=== PATIENT | female | born 1955 | race Caucasian/White ===

== ENCOUNTER 2016-07-29 18:02 | Inpatient (IN) ==
[2016-07-29] MEDS ORDERED: PHENERGAN ONE (19:36)
[2016-07-29] MEDS ORDERED: ZOFRAN ONE (19:56)
[2016-07-29] MEDS ORDERED: APRESOLINE ONE (20:53)
[2016-07-29] MEDS ORDERED: REGLAN ONE (20:53)
[2016-07-29] MEDS ORDERED: LABETALOL ONE (21:00)
[2016-07-30] MEDS ORDERED: SODIUM CHLORIDE 0.9% INJ PRN (00:32)
[2016-07-30] MEDS ORDERED: REGLAN IV PRN (00:35)
[2016-07-30] MEDS: ZOFRAN IV PRN ×3 (00:45→16:28)
[2016-07-30] MEDS ORDERED: DULCOLAX PR ONE (00:45)
--- NOTE | 2016-07-30 00:51 | Diag Imaging Result Document ---
PROCEDURE NAME: ABDOMEN FLAT/UPRIGHT - 07/29/2016 FLAT AND UPRIGHT ABDOMEN: FINDINGS: There is a moderately large amount of stool in the colon. The stomach contains some gas without significant distention. There is no evidence of small bowel dilatation. There are surgical clips in the right upper quadrant. IMPRESSION: Constipation. -6
--- NOTE | 2016-07-30 00:51 | Diag Imaging Result Document ---
PROCEDURE NAME: CHEST-2 VIEWS - 07/29/2016 AP AND LATERAL CHEST: FINDINGS: There is a double-lumen catheter in the left internal jugular with its tip in the superior vena cava just above the right atrium. There is ill-defined opacity in the left lower lobe and some atelectasis in the right base as well. The left ventricle appears enlarged. There are no previous studies. IMPRESSION: 1. Atelectasis. 2. Possible pneumonia left lower lobe. 3. Cardiomegaly.
[2016-07-30 01:23] LABS: SODIUM 131 mmol/L (136-145)
[2016-07-30 01:24] LABS: AGAP 19; CHLORIDE 92 mmol/L (98-107); POTASSIUM 6.5 mmol/L (3.5-5.1); TCO2 20 mmol/L (25-35)
[2016-07-30 01:25] LABS: AMYLASE 24 U/L (20-200); BUN 79 mg/dL (8-22); CALCIUM 9.2 mg/dL (8.8-10.2); COSMO 288; LIPASE 20 U/L (13-60)
[2016-07-30] MEDS ORDERED: NS 1,000 ML IV ONE (02:00)
[2016-07-30 02:22] LABS: HEMATOCRIT 38.7 % (37.0-47.0); HEMOGLOBIN 12.7 g/dL (12.0-16.0); RBC 4.21 XMIL (4.2-5.4)
[2016-07-30 02:23] LABS: BASO% 0.4 % (0.0-0.8); EOS# 0.02 X1000 (0.0-0.7); EOS% 0.1 % (0.0-10.0); LYMPH# 0.34 X1000 (1.2-3.4); LYMPH% 6.2 % (20.5-51.1); LYMPHS 7 % (21-51); MANUAL DIFF NEEDED? YES; MCH 30.2 PG (27-31); MCHC 32.8 g/dL (33-37); MCV 91.9 FL (81-99); MONO 3 % (1-9); MONO# 0.09 X1000 (0.11-0.59); MONO% 1.7 % (1.7-9.3); MPV 10.4 FL (7.4-10.4); NEUT% 91.3 % (42.2-75.2); PLT 105 X1000 (130-400)
[2016-07-30] MEDS ORDERED: APRESOLINE IV PRN (03:13)
[2016-07-30] MEDS ORDERED: LABETALOL IV PRN (03:14)
[2016-07-30] MEDS ORDERED: D50W SYRINGE IV PRN (03:26)
[2016-07-30] MEDS: PHENERGAN INJ PRN ×3 (03:54→22:06)
[2016-07-30] MEDS: SODIUM CHLORIDE 0.9% INJ PRN (03:58)
[2016-07-30] MEDS: NORCO-5 PO PRN ×2 (05:01→10:58)
[2016-07-30] MEDS ORDERED: DUONEB (A & A) INH ONE (05:26)
[2016-07-30] MEDS ORDERED: PHENERGAN IM ONE (05:39)
[2016-07-30] MEDS ORDERED: ALBUTEROL 0.5% INH CONC FOR HYPERKALEMIA INH ONE (05:48)
[2016-07-30] MEDS: HUMALOG SUBQ SCH ×4 (05:59→22:01)
[2016-07-30] MEDS: PROTONIX IV SCH (05:59)
[2016-07-30 08:06] LABS: BASO% 0.2 % (0.0-0.8); HEMATOCRIT 36.9 % (37.0-47.0); HEMOGLOBIN 12.2 g/dL (12.0-16.0); LYMPH# 0.38 X1000 (1.2-3.4); LYMPH% 6.7 % (20.5-51.1); MANUAL DIFF NEEDED? YES; MCH 30.7 PG (27-31); MCHC 33.1 g/dL (33-37); MCV 92.9 FL (81-99); MONO# 0.23 X1000 (0.11-0.59); MONO% 4.1 % (1.7-9.3); MPV 9.6 FL (7.4-10.4); PLT 121 X1000 (130-400); RBC 3.97 XMIL (4.2-5.4)
[2016-07-30 08:35] LABS: BANDS 2 % (0-1); LYMPHS 12 % (21-51); MONO 6 % (1-9)
[2016-07-30 08:37] LABS: HEMOGLOBIN A1C 5.2 % (4.8-6.0)
[2016-07-30 08:38] LABS: ALBUMIN 3.4 g/dL (3.5-5.0); CALCIUM 9.1 mg/dL (8.8-10.2); TOTAL BILIRUBIN 0.41 mg/dL (0.20-1.00); TOTAL PROTEIN 5.8 g/dL (6.3-8.3)
[2016-07-30] MEDS ORDERED: NORVASC PO SCH (09:00)
[2016-07-30] MEDS ORDERED: ROCEPHIN 1 GM/NS 1 GM/50 ML IVPB IV SCH (09:45)
[2016-07-30] MEDS: HEPARIN SUBQ SCH ×2 (10:54→22:05)
[2016-07-30] MEDS: TYLENOL PO PRN ×2 (11:00→22:05)
[2016-07-30] MEDS ORDERED: ZITHROMAX 500 MG/NS 500 MG/250 ML IVPB IV SCH (11:00)
[2016-07-30] MEDS: VALIUM IV PRN ×2 (12:09→19:44)
[2016-07-30] MEDS: AMBIEN PO SCH (22:06)
[2016-07-31] MEDS: NORCO-5 PO PRN (04:39)
[2016-07-31] MEDS: SODIUM CHLORIDE 0.9% INJ PRN (05:40)
[2016-07-31] MEDS: PHENERGAN INJ PRN (05:40)
[2016-07-31] MEDS: PROTONIX IV SCH ×2 (05:40→06:17)
[2016-07-31] MEDS: HUMALOG SUBQ SCH ×4 (06:17→20:18)
[2016-07-31] MEDS: TYLENOL PO PRN (06:22)
[2016-07-31] MEDS ORDERED: HEPARIN IV PRN (06:52)
[2016-07-31] MEDS ORDERED: NS 2,000 ML MISC PRN (06:52)
[2016-07-31] MEDS ORDERED: TIGHT: 0.2 ML/HR MISC PRN (06:52)
[2016-07-31 07:10] LABS: MANUAL DIFF NEEDED? NO
[2016-07-31 07:15] LABS: BASO% 0.1 % (0.0-0.8); EOS# 0.01 X1000 (0.0-0.7); EOS% 0.1 % (0.0-10.0); HEMATOCRIT 34.3 % (37.0-47.0); HEMOGLOBIN 11.1 g/dL (12.0-16.0); LYMPH# 1.16 X1000 (1.2-3.4); LYMPH% 15.6 % (20.5-51.1); MCHC 32.4 g/dL (33-37); MCV 92.7 FL (81-99); MONO# 0.59 X1000 (0.11-0.59); MONO% 7.9 % (1.7-9.3); MPV 9.4 FL (7.4-10.4); NEUT% 76.3 % (42.2-75.2); PLT 127 X1000 (130-400)
--- NOTE | 2016-07-31 07:42 | EKG Report ---
Test Performed on : 07/31/2016 06:51:05 AM Test Reason : chest pain Blood Pressure : / mmHG Vent. Rate : 074 BPM Atrial Rate : 074 BPM P-R Int : 132 ms QRS Dur : 084 ms QT Int : 426 ms P-R-T Axes : 056 -16 035 degrees QTc Int : 472 ms Normal sinus rhythm. Moderate voltage criteria for LVH, may be normal variant Junctional ST depression, probably normal Borderline ECG When compared with ECG of 30-JUL-2016 18:28, (Unconfirmed) No significant change was found Confirmed by Dejon BISHOP, Cricket Gamboa ([id number]) on 07/31/2016 9:38:27 AM
[2016-07-31 07:55] LABS: AGAP 20; BUN 104 mg/dL (8-22); CHLORIDE 94 mmol/L (98-107); SODIUM 136 mmol/L (136-145); TCO2 22 mmol/L (25-35)
[2016-07-31 07:56] LABS: ALBUMIN 3.6 g/dL (3.5-5.0); CALCIUM 8.6 mg/dL (8.8-10.2); COSMO 304
[2016-07-31 07:57] LABS: POTASSIUM 6.3 mmol/L (3.5-5.1)
--- NOTE | 2016-07-31 08:25 | Diag Imaging Result Document ---
PROCEDURE NAME: CHEST-PORTABLE - 07/31/2016 SINGLE FRONTAL RADIOGRAPH OF THE CHEST: COMPARISON: 07/29/2016. FINDINGS: Left Vas-Cath is in stable position. Left lower lobe opacity has improved somewhat during the interval. Mild right basilar atelectasis is unchanged. No new consolidations are identified. Cardiac silhouette is stable. IMPRESSION: Slight improvement of opacity at the left lower lung zone.
[2016-07-31] MEDS ORDERED: NS 2,000 ML ONE (08:26)
--- NOTE | 2016-07-31 08:29 | Diag Imaging Result Document ---
PROCEDURE NAME: ABDOMEN FLAT/UPRIGHT - 07/31/2016 FLAT AND UPRIGHT RADIOGRAPH OF THE ABDOMEN: COMPARISON: 07/29/2016. FINDINGS: Constipation seen previously appears to have improved. There is no evidence of bowel obstruction. There is no evidence of large-volume free abdominal gas. The abdomen is otherwise stable. IMPRESSION: Likely slight improvement of the mild constipation seen previously.
[2016-07-31] MEDS: HEPARIN SUBQ SCH ×2 (09:10→20:01)
[2016-07-31] MEDS ORDERED: HEPARIN ONE (09:43)
--- NOTE | 2016-07-31 09:56 | EKG Report ---
Test Performed on : 07/30/2016 6:28:06 PM Test Reason : cp Blood Pressure : / mmHG Vent. Rate : 078 BPM Atrial Rate : 078 BPM P-R Int : 170 ms QRS Dur : 096 ms QT Int : 426 ms P-R-T Axes : 057 -20 051 degrees QTc Int : 485 ms Normal sinus rhythm. Minimal voltage criteria for LVH, may be normal variant Borderline ECG When compared with ECG of 11-FEB-2016 12:29, Nonspecific T wave abnormality no longer evident in Anterior leads Confirmed by Dejon BISHOP, Cricket Gamboa ([id number]) on 08/02/2016 5:22:42 PM
[2016-07-31] MEDS: D50W 250 ML, AMINOSYN 15% 500 ML, LIPOSYN 20% 250 ML IV SCH ×3 (09:59)
--- NOTE | 2016-07-31 10:07 | HISTORY AND PHYSICAL ---
PRIMARY CARE PHYSICIAN: Dr. Renny Rodríguez, in [place]. REASON FOR ADMISSION: Intractable nausea, vomiting today. HISTORY OF PRESENT ILLNESS: Ms. Esther Harley is a 62-year-old, woman, with a longstanding history of end-stage renal disease, type 2 diabetes with gastroparesis and hypertension, who came in today complaining of intense nausea and vomiting 10 to 12 times. She denies any hematemesis or coffee grounds. She denies any abdominal pain. Says that she is normally constipated but today she has had 3 soft stools, which were nonbloody, and non-melenic. She denies any fever or chills. She said about 10 days ago she was treated for pneumonia, and has almost completed a course of Levaquin. She states that she has been unable to take her blood pressure medications today because of the nausea and vomiting. As a consequence of this, she did not go for her dialysis, but denies any cardiorespiratory complaints at this time. No worsening of leg swelling. No PND or orthopnea. No chest pain. She is pretty much oliguric, which is her baseline. REVIEW OF SYSTEMS: Twelve system review was reviewed and was negative. Positive findings as noted in HPI. Neurologic: No complaints. Musculoskeletal: No complaints. ALLERGIES: Talwin, Nubain and Maxzide. HOME MEDICATION: Patient does not recollect what she takes, but she does not take any insulin. SURGICAL HISTORY: She has had a hemodialysis catheter, hysterectomy, cholecystectomy, and A/V fistula in her right arm. FAMILY HISTORY: No kidney disease or heart disease. Both parents had diabetes. SOCIAL HISTORY: She lives alone. Does not smoke, drink, or use illicit drugs. LABORATORY WORK: EKG showed no signs of LVH. White count 5,000, hemoglobin and hematocrit 12 and 35, platelets 105,000 with neutrophil count percentage of 90%. Sodium 131, potassium 6.5, BUN 79, creatinine 6.7, calcium 9.2. Chest films and abdominal x-ray are pending at this time. PHYSICAL EXAMINATION: GENERAL: Morbidly obese, woman, who is alert and oriented to person and time. She is in mild distress from her nausea. HEENT: Head is normocephalic, atraumatic. Eyes: TU EOMI. She is anicteric but pale. ENT and oropharynx exam is grossly normal. No signs of cyanosis noted. VITAL SIGNS: Blood pressure is 224/109, sat is 94%, heart rate is 91%. She is afebrile, breathing at 14 per minute. NECK: Short and thick. No JVD or carotid bruit. No thyromegaly. CHEST: She has left basal crepitations with good air entry in both lung jones. No wheezes or rhonchi. CARDIOVASCULAR: First and second heart sounds heard. No gallops, murmurs, rubs. Rhythm is regular. ABDOMEN: Protuberant, soft, no tenderness. No rebound or guarding. Bowel sounds are normal. RECTAL: Deferred at this time. EXTREMITIES: Trace to 1+ pitting edema lower extremities. Pulses distally in the lower extremities are palpable with good volume and symmetrical. No clubbing or peripheral cyanosis. NEUROLOGICAL: No asterixis. No focal deficits. SKIN: Intact with no breakdown, lesions or erythema. MUSCULOSKELETAL: Grossly normal. ASSESSMENT: 1. Intractable nausea and vomiting, secondary to type 2 gastroparesis. 2. End-stage renal disease. 3. Hyperkalemia, secondary to #2. 4. Type 2 diabetes. 5. Hypertensive kidney disease, stage 5. 6. Thrombocytopenia, etiology yet to be determined. PLAN: At this time, we will cautiously hydrate patient. We will start patient on sliding scale. Check A1c, and see her overall control of her diabetes. If it is not well controlled, we may consider adding on insulin for tighter control. Her brother called me aside and told she is not compliant with her diet nor with her dialysis, nor with her medications, and this is something that he says he has been going through several times in the past. For now, regarding her blood pressure medication, we will start her on p.r.n. hydralazine and labetalol, and start her on Norvasc. Patient has yet to bring her home medication list, and home medications need to be reconciled. Regarding her hyperkalemia, no EKG changes are noted, but we will start patient on potassium and albuterol, and recheck in next 2 hours. The patient has been started on insulin and D50 and albuterol. We will repeat potassium in 2 hours, and if it is still elevated we will repeat insulin and D50, and if it is still elevated, we will repeat again D50 and insulin with bicarb and albuterol. The patient definitely needs a dietary consult, social service consult to ensure she is compliant with her medications, so she does not get readmitted, and also we need to review the patient's medications to be sure that she is not taking any medications that will encourage the tendency to hyperkalemia. Regarding her gastroparesis, she will be given Reglan and Zofran, and if need be erythromycin. Consult Dr. Forbes, who is a blow off worker, to see her. cc: MD Fidelina Rinaldi MD
--- NOTE | 2016-07-31 10:33 | EKG Report ---
Test Performed on : 07/29/2016 6:12:02 PM Test Reason : ED. Not ordered in [place] Blood Pressure : / mmHG Vent. Rate : 083 BPM Atrial Rate : 083 BPM P-R Int : 198 ms QRS Dur : 106 ms QT Int : 408 ms P-R-T Axes : 053 -32 060 degrees QTc Int : 479 ms Normal sinus rhythm. Left axis deviation Voltage criteria for left ventricular hypertrophy Abnormal ECG No previous ECGs available Unconfirmed Result
[2016-07-31] MEDS ORDERED: ZOFRAN PO PRN (10:46)
[2016-07-31] MEDS ORDERED: PHENERGAN PO PRN (10:46)
[2016-07-31] MEDS ORDERED: BUPAP PO PRN (10:46)
[2016-07-31] MEDS ORDERED: PATIENT'S OWN MED PO PRN (10:46)
--- NOTE | 2016-07-31 10:47 | CONSULTATION ---
DATE OF CONSULTATION: 07/31/2016 REASON FOR CONSULTATION: Dialysis. HISTORY OF PRESENT ILLNESS: Ms. Harley is a 61-year-old white female with end-stage kidney disease secondary to diabetes. She is still dialyzing with a tunneled catheter. She had a recent protracted hospitalization related to nausea and vomiting and pneumonia. Her admission date was 05/15/2016 and discharge was 05/29/2016. She states that she began having nausea and vomiting on the evening prior to admission. Her symptoms did not improve despite her interventions at home and so she came to the hospital for evaluation and was admitted. She has not vomited over the last evening or this morning. She is ready to take some p.o. She states her symptoms though significant enough to force her to come to the hospital, were not nearly as intense and protracted as they were the last time she was admitted. She did have pneumonia on her last admission but she does not have any change in her respiratory status. No cough or shortness of breath, etc. PAST MEDICAL HISTORY: 1. End-stage kidney disease. She has routine dialysis on Sunday, , and Sunday. Her kidney disease is caused by her diabetes and hypertension. Unfortunately, she is still dialyzing with a tunneled dialysis catheter. She does have a fistula in the right forearm that is not ready for use. 2. Diabetes. 3. Obesity. 4. Hypertension. 5. History of cervical cancer. 6. Chronic pain. 7. Gastroparesis. HOME MEDICATIONS: Include omeprazole, ergocalciferol, carvedilol, Soma, pregabalin, fluoxetine, polyethylene glycol, sucralfate, metoclopramide, pantoprazole, zolpidem, amlodipine, clotrimazole, hydralazine, oxycodone, promethazine, ondansetron, butalbital, clonidine, erythropoietin. ALLERGIES: Pentazocine, triamterene, nalbuphine. SOCIAL HISTORY: No alcohol or tobacco. FAMILY HISTORY: Positive for diabetes and vascular disease. REVIEW OF SYSTEMS: Otherwise noncontributory. PHYSICAL EXAMINATION: Vital Signs: Blood pressure 188/73, heart rate 75, respiration 18, afebrile. General: She is an obese, white female, lying flat, on room air, no distress. Skin: Pale and dry. HEENT: Conjunctivae are pink. Pupils are equal. Oropharynx is clear but poor dentition with multiple broken and carious teeth. Neck: Supple and trachea is midline. Jugular venous distention is present. Heart: Regular without murmurs, rubs, or gallops. Lungs: Have equal breath sounds. No crackles or wheezes. Abdomen: Soft and nontender with normal bowel sounds. Extremities: Have trace edema. No clubbing or cyanosis. LABORATORY DATA: Sodium 136, potassium 6.3, chloride 94, bicarbonate 22, BUN 104, creatinine 8.6. Hemoglobin 11.2. IMPRESSIONS: 1. End-stage kidney disease. She has clinical evidence of volume overload and hyperkalemia. Though her normal dialysis days are Sunday, and Sunday, we will proceed with dialysis today to address her volume status and her potassium. 2. Nausea and vomiting. Moderate. Dr. Forbes has been consulted. 3. Recent pneumonia. She was started again on IV antibiotics. Her white count is normal. She has no new culture data. We will continue her antibiotics with dialysis but if the primary team does not feel these are necessary then please contact me and I will discontinue them. cc: Yaya Santamaria MD
[2016-07-31] MEDS ORDERED: VITAMIN D PO SCH (11:00)
--- NOTE | 2016-07-31 11:59 | PROGRESS NOTE ---
DATE: 07/31/2016 SUBJECTIVE: The patient is currently on dialysis. She states that she feels a lot better today. She states that she is hungry. No acute events noted overnight. OBJECTIVE: Vital Signs: Temperature 98 degrees, blood pressure 188/73, heart rate 75, respirations 18, O2 saturations 96% on room air. General: This is a morbidly obese female, lying in bed in no acute distress. Head: Normocephalic, atraumatic. Heart: S1, S2. Normal. Regular rate and rhythm. Lungs clear to auscultation bilaterally. No crackles. No rales. Abdomen: Positive bowel sounds. Soft, nontender, nondistended. Extremities: No edema. No cyanosis. No calf tenderness. Neurologic: The patient is alert and oriented x3. LABORATORY DATA: White blood cell count 7.4, hemoglobin 11, hematocrit 34, platelets 127,000. Sodium 136, potassium 6.3, chloride 94, CO2 of 22. BUN 104 creatinine 8.6, glucose 89. Troponin 0.53. Phosphorus 7.2. Albumin 3.6. ASSESSMENT AND PLAN: 1. Left lower lobe pneumonia. Continue on IV antibiotic therapy. 2. Diabetic gastroparesis. We will restart the patient's scheduled Reglan. 3. Accelerated hypertension. Hopefully, this will improve once the patient has been dialyzed today. We will restart her home antihypertensive regimen. 4. End-stage renal disease. The patient is undergoing dialysis at this time. 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 5. Esophageal reflux disease. Continue on Protonix. 6. Hyperkalemia. This will be addressed during dialysis today. 7. Elevated troponin. This may be secondary to the patient's missed dialysis sessions and underlying renal dysfunction. The patient is not complaining of any chest pain. We will continue to monitor this closely. 8. Morbid obesity. Aware. 9. Diabetes mellitus, type 2. Continue on sliding scale insulin. 10. Deep vein thrombosis prophylaxis. Continue on heparin 5000 units subcutaneous every 12 hours. cc: Sivan Farias MD MTDD
[2016-07-31] MEDS: TAZIDIME 2 GM in NS 100 ML IV SCH (13:05)
[2016-07-31] MEDS: CARAFATE LIQUID PO SCH ×2 (15:09→19:18)
[2016-07-31] MEDS: MIRALAX PO SCH (15:09)
[2016-07-31] MEDS: APRESOLINE PO SCH ×2 (15:14→20:05)
[2016-07-31] MEDS: REGLAN PO SCH ×2 (15:15)
[2016-07-31] MEDS: ZITHROMAX PO SCH (17:20)
[2016-07-31] MEDS: PERCOCET-10 PO PRN (19:02)
[2016-07-31] MEDS: NORVASC PO SCH (20:00)
[2016-07-31] MEDS: PROTONIX PO SCH (20:01)
[2016-07-31] MEDS: COREG PO SCH (20:01)
[2016-07-31] MEDS: LOTRISONE CREAM TOP SCH (21:15)
[2016-07-31] MEDS: AMBIEN PO SCH (21:16)
--- NOTE | 2016-07-31 22:08 | CONSULTATION ---
DATE OF CONSULTATION: 07/31/2016 REFERRING PHYSICIAN: Sivan Farias M.D. INDICATION FOR CONSULTATION: 1. Nausea with vomiting. 2. Known gastroparesis. 3. Diabetes mellitus. 4. Chronic constipation. HISTORY OF PRESENT ILLNESS: The patient is a 61-year-old, white female, who is well known to our service. She has poorly controlled diabetes complicated by end-stage renal disease, gastroparesis and hypertension. She has had multiple admissions for recurrent nausea with vomiting in part due to dietary and medication noncompliance. The patient states that she was doing well after her prolonged hospitalization in April 2016 where she was treated for severe refractory gastroparesis. She was placed on Reglan but had not been compliant with taking the Reglan at home. However, the patient states that she has been very compliant. Her family notes dietary noncompliance and noncompliance with Reglan. The patient has been taking omeprazole and Carafate for gastritis and duodenitis. She notes constipation for the last several days followed by the onset of nausea with vomiting. On the day of admission, she defecated 3 times with a large amount of stool evacuated during the 3 bowel movements. However, the nausea with vomiting persisted and actually intensified such that she presented to the emergency room. While in the emergency room she had witnessed nausea with vomiting. However, over the next 24 hours, her nausea with vomiting resolved. Today, the patient states that she is hungry and is ready to eat. She has missed her recent dialysis as an outpatient due to the refractory nausea with vomiting. Dr. Santamaria has been consulted for resumption of her hemodialysis. Overall, the patient states that she is feeling significantly better with resolution of the abdominal pain, nausea with vomiting. We were asked to participate in her care. PAST MEDICAL HISTORY: 1. End-stage renal disease with dialysis on Sunday, , Sunday. 2. Hypertension. 3. Diabetes 2. 4. Cervical cancer. 5. Constipation. 6. Gastroparesis. 7. Chronic low back pain. PAST SURGICAL HISTORY: 1. Left Vas-Cath. 2. Right wrist fracture. 3. Cholecystectomy. 4. Hysterectomy. 5. Abdominoplasty. 6. Bilateral carpal tunnel syndrome. 7. Left tibial fracture requiring open reduction and internal fixation. SOCIAL HISTORY: Negative for alcohol, tobacco or recreational drug use. FAMILY HISTORY: Positive for atrial fibrillation, stroke, diabetes and colon polyps. Her power- of-admitted attorneys for health care are her niece, Yakelin RONAK Kinsey and her brother, Smooth Harley. REVIEW OF SYSTEMS: Negative for nausea with vomiting, abdominal pain, and diarrhea. She reports normal bowel movements. She states that her constipation has resolved since admission. She notes that she is feeling much better. MEDICATION ALLERGIES: 1. Talwin 2. Maxzide. 3. Nubain. HOME MEDICATIONS: 1. Ambien. 2. Carafate suspension. 3. Phenergan. 4. Lyrica. 5. MiraLAX. 6. Protonix 40 mg b.i.d. for 6 weeks. 7. Percocet 10. 8. Zofran. 9. Omeprazole 20 mg daily. 10. Reglan 5 mg t.i.d. 11. Hydralazine 50 mg q.8 hours. 12. Prozac. 13. Vitamin D 50,000 units weekly. 14. Epogen. 15. Lotrisone cream. 16. Clonidine. 17. Carvedilol. 18. Soma. 19. Acetaminophen/butalbital. 20. Norvasc. 21. (It should be noted that the patient was unable to recall her medications or when she is supposed to take them despite reporting compliance with her medication.) PHYSICAL EXAMINATION: General: She is in no acute distress. Vital Signs: Her blood pressure is 170/56, pulse 70, respiration 18, temperature of 97.8 degrees. HEENT: Negative for jaundice. Her oropharyngeal mucosal membranes are moist. Neck: Supple. Pulmonary Examination: Lungs are clear to auscultation with normal respiratory effort. Cardiovascular Examination: Reveals regular rate and rhythm with no murmurs, gallops, or rubs. Abdominal Examination: Reveals normoactive bowel sounds. The abdomen is soft, nontender, with central adiposity. Extremities: Bilaterally are negative for cyanosis, clubbing, or edema. OBJECTIVE DATA: Remarkable for hemoglobin of 11.1 with hematocrit of 34.3 and a white count of 7.43. She has 127,000 platelets. Sodium is 136, potassium 6.3, chloride 94, CO2 22, BUN 104, creatinine 8.6, with a glucose of 89. Calcium is 8.6, phosphorus 7.2, albumin 3.6, CK 101, troponin 0.537 and a BMP of greater than 35,000. IMPRESSION: 1. Nausea with vomiting. 2. Constipation. 3. Known gastroparesis. 4. Diabetes 2. RECOMMENDATION: 1. The patient's nausea with vomiting has resolved ever since the patient has been able to defecate. Therefore, I recommend continued conservative management. 2. Continue Protonix 40 p.o. b.i.d. as you are doing. 3. Continue MiraLAX for the chronic constipation. 4. She is on a 12 week course of Carafate that began in April and should end at the end of July. 5. I agree with resuming Reglan 5 mg p.o. t.i.d. as scheduled. It should be noted that when the patient is at home and is noncompliant with the Reglan, she has nausea with vomiting. Her symptoms resolve when she is admitted and is compliant with her medications. 6. Please advance her diet to a renal diet as tolerated. This will allow for discontinuation of the parenteral nutrition which increases her risk for hyperglycemia and infection. 7. Continue Zofran as needed. 8. Additional recommendations to follow based on her clinical course. cc: MD Yaya Desai MD Katherine Takundwa, MD MTDD
[2016-08-01] MEDS: CARAFATE LIQUID PO SCH ×5 (01:21→23:10)
[2016-08-01] MEDS: PERCOCET-10 PO PRN (02:14)
[2016-08-01] MEDS: APRESOLINE PO SCH ×3 (02:15→18:51)
[2016-08-01] MEDS: REGLAN PO SCH ×3 (06:00→18:51)
[2016-08-01] MEDS: HUMALOG SUBQ SCH ×4 (06:00→20:02)
[2016-08-01 06:38] LABS: HEMATOCRIT 34.1 % (37.0-47.0); HEMOGLOBIN 10.8 g/dL (12.0-16.0); MCH 30.3 PG (27-31); MCHC 31.7 g/dL (33-37); MCV 95.5 FL (81-99); MPV 9.8 FL (7.4-10.4); RBC 3.57 XMIL (4.2-5.4)
[2016-08-01] MEDS ORDERED: NS 2,000 ML ONE (07:26)
[2016-08-01] MEDS ORDERED: HEPARIN ONE (07:26)
[2016-08-01] MEDS ORDERED: HEPARIN IV PRN (07:30)
[2016-08-01] MEDS ORDERED: TIGHT: 0.2 ML/HR MISC PRN (07:30)
[2016-08-01] MEDS ORDERED: NS 2,000 ML MISC PRN (07:30)
[2016-08-01 07:31] LABS: ALBUMIN 3.3 g/dL (3.5-5.0); CALCIUM 7.9 mg/dL (8.8-10.2); POTASSIUM 5.3 mmol/L (3.5-5.1)
[2016-08-01] MEDS: TAZIDIME 2 GM in NS 100 ML IV SCH (11:10)
[2016-08-01] MEDS: D50W 250 ML, AMINOSYN 15% 500 ML, LIPOSYN 20% 250 ML IV SCH ×3 (11:11)
[2016-08-01] MEDS: PROTONIX PO SCH ×2 (11:31→20:02)
[2016-08-01] MEDS: COREG PO SCH ×2 (11:31→20:01)
[2016-08-01] MEDS: NORVASC PO SCH ×2 (11:31→20:02)
[2016-08-01] MEDS: PROZAC PO SCH (11:31)
[2016-08-01] MEDS: LYRICA PO SCH (11:33)
[2016-08-01] MEDS: HEPARIN SUBQ SCH ×2 (11:36→20:01)
[2016-08-01] MEDS: LOTRISONE CREAM TOP SCH ×2 (11:36→20:02)
--- NOTE | 2016-08-01 14:05 | PROGRESS NOTE ---
DATE: 08/01/2016 SUBJECTIVE: The patient was seen today on dialysis. The patient states that she is feeling a lot better today. She states that she did not sleep well last night because of interruptions from her neighbor in the room. OBJECTIVE: Vital Signs: Temperature 98.4 degrees, blood pressure 174/83, heart rate 73, respirations 20, O2 saturation 98% on room air. General: This is an obese elderly female lying comfortably in bed in no acute distress. Head: Normocephalic, atraumatic. Heart: S1 and S2 normal. Regular rate and rhythm. Lungs: Clear to auscultation bilaterally. No crackles. No rales. Abdomen: Positive bowel sounds. Soft, obese, nontender, nondistended. Extremities: No edema. No cyanosis. No calf tenderness. Neurologic: The patient is alert and oriented x3. LABORATORIES: White blood cell count 5.8, hemoglobin 10, hematocrit 34, platelets 106,000. Sodium 134, potassium 5.3, chloride 93, CO2 of 19, BUN 63, creatinine 5.2, glucose 93, phosphorus 4.8, calcium 7.9. ASSESSMENT AND PLAN: 1. Community-acquired pneumonia. Continue on ceftazidime after each dialysis session and oral azithromycin. 2. End-stage renal disease. Management as per the freelance patternmaker. 3. Volume overload. This will be addressed during dialysis. 4. Diabetic gastroparesis. Continue on Reglan. 5. Hypertension. Continue on the current antihypertensives. 6. Reflux. Continue on Protonix and carafate. 7. Constipation. Continue on MiraLAX. Will also add a Dulcolax suppository. 8. Insomnia. Continue on Ambien at bedtime. 9. Deep vein thrombosis prophylaxis. Continue on heparin 5000 units subcutaneous every 12 hours. DISPOSITION: We will plan to discharge the patient home once cleared by the freelance patternmaker. cc: MD JEANIE Yousif
--- NOTE | 2016-08-01 14:32 | PROGRESS NOTE ---
DATE: 08/01/2016 TIME SEEN: 0815. SUBJECTIVE: Ms. Harley is resting quietly in bed. She is on hemodialysis. She has complaints of not being able to sleep last night secondary to her roommate yelling out in discomfort. OBJECTIVE: Her most recent vital signs. Her temperature is 98.4, blood pressure 174/83, heart rate 73, respirations are 20. She is currently on room air. Last recorded saturation is 98%. She has had 0 recorded in. She has had 4 L out from yesterday. LABS: Sodium 134, potassium 5.3, chloride 93, CO2 19, BUN 63, creatinine 5.2, glucose 93. Her anion gap is 22, calcium 7.9, albumin 3.3. White count 5.81, hemoglobin 10.8, hematocrit 34.1, with a platelet count of 106,000. PHYSICAL EXAMINATION: General: This is a 61-year-old white female. She appears chronically ill. Is in no acute distress. Skin: Warm and dry. HEENT: Normocephalic, atraumatic. Conjunctivae pink. She has TU. Mucous membranes moist. Neck: Supple. Trachea midline. Positive JVD. Cardiovascular: Regular rate and rhythm. She is without murmur or gallop. Lungs: Clear to auscultation anteriorly. Equal excursion on room air. Abdomen: Soft. Large, round, soft. Nontender. Positive bowel sounds. Genitourinary: Not inspected. Minimal void with dialysis assist. Extremities: Trace edema present. No clubbing or cyanosis. Neurological: Alert and oriented x3. ASSESSMENT AND PLAN: 1. End-stage renal disease. This is patient's routine dialysis day, secondary to her fluid volume overload. We will plan for dialysis today also with ultrafiltration. She has had 4 L pulled off yesterday. We will attempt to challenge her dry weight and pull her below her dry weight today. We will place her on a 2 K bath for 3.5 hours. 2. Electrolytes and acid-base balance. These remain stable with correction on dialysis. 3. Fluid volume overload. Again, patient is to be dialyzed today with again challenge to her dry weight. 4. Recent pneumonia. She has been restarted on her IV antibiotics, followed by primary care. I would to thank you for allowing us to follow with this patient. Seen, data reviewed, discussed with Sky Glaser on 08/01/16. I agree with the above assessment and plan of care. rg Dictated by WILMER Thomas for Yaya Santamaria MD cc: WILMER Thomas MD [facility]
[2016-08-01] MEDS: MIRALAX PO SCH (18:51)
[2016-08-01] MEDS: ZITHROMAX PO SCH (18:51)
[2016-08-01] MEDS: DULCOLAX PR SCH (20:01)
[2016-08-01] MEDS: AMBIEN PO SCH (20:02)
[2016-08-02] MEDS: APRESOLINE PO SCH ×3 (02:51→18:23)
[2016-08-02] MEDS: CARAFATE LIQUID PO SCH ×4 (04:22→23:16)
[2016-08-02] MEDS: PERCOCET-10 PO PRN ×2 (05:00→16:59)
[2016-08-02] MEDS: HUMALOG SUBQ SCH ×4 (05:59→21:02)
[2016-08-02] MEDS: REGLAN PO SCH ×3 (06:00→17:00)
--- NOTE | 2016-08-02 07:33 | Diag Imaging Result Document ---
PROCEDURE NAME: CHEST-2 VIEWS - 08/01/2016 PA AND LATERAL RADIOGRAPH OF THE CHEST: COMPARISON: 07/31/2016. FINDINGS: Left Vas-Cath is in stable position. Right basilar atelectasis has essentially resolved, and the mild left basilar opacity continues to improve to near resolution. No new consolidations are identified. Cardiac silhouette is stable. IMPRESSION: Interval improvement as described.
[2016-08-02 07:50] LABS: HEMATOCRIT 33.4 % (37.0-47.0); HEMOGLOBIN 10.8 g/dL (12.0-16.0); MCHC 32.3 g/dL (33-37); MCV 92.8 FL (81-99); MPV 9.6 FL (7.4-10.4); RBC 3.6 XMIL (4.2-5.4)
[2016-08-02 08:12] LABS: CALCIUM 8.4 mg/dL (8.8-10.2)
[2016-08-02] MEDS: PROZAC PO SCH (08:17)
[2016-08-02] MEDS: NORVASC PO SCH ×2 (08:18→19:59)
[2016-08-02] MEDS: PROTONIX PO SCH ×2 (08:18→19:59)
[2016-08-02] MEDS: HEPARIN SUBQ SCH ×2 (08:19→19:59)
[2016-08-02] MEDS: COREG PO SCH ×2 (08:22→19:59)
[2016-08-02] MEDS: LYRICA PO SCH (08:23)
--- NOTE | 2016-08-02 08:23 | PROGRESS NOTE ---
DATE: 08/02/2016 SUBJECTIVE: She states she had no nausea or vomiting through the last 24 hours. She would like her diet advanced. No shortness of breath, chest discomfort, etc. OBJECTIVE: Vital Signs: Blood pressure 203/74, heart rate 74, respirations 18, afebrile. General: She is an obese, white female, lying flat, in no distress. Skin: Warm and dry with ecchymoses. HEENT: Conjunctivae are pink. Pupils are equal. Neck: Neck veins are not distended. Heart: Regular without gallops or murmurs. Lungs: Have equal breath sounds. No crackles. Abdomen: Soft. nontender, nondistended. Bowel sounds are present. Extremities: Have no edema, clubbing, or cyanosis. Laboratory Data: None today. IMPRESSION: 1. End-stage kidney disease. No treatment changes for today. Dialysis tomorrow. 2. Electrolytes/acid base/anemia. No new data. 3. Hypertension: Consistently above target. I will advance her Coreg to 12.5 twice a day. cc: Yaya Santamaria MD
[2016-08-02] MEDS: LOTRISONE CREAM TOP SCH ×2 (09:42→19:59)
--- NOTE | 2016-08-02 10:59 | PROGRESS NOTE ---
DATE: 08/02/2016 SUBJECTIVE: The patient states that she feels a lot better today. She slept well last night. Her blood pressure was noted to be elevated overnight and this morning. OBJECTIVE: Vital Signs: Temperature 98.3 degrees, blood pressure 203/74, heart rate 74, respirations 18, O2 saturations 97% on room air. General: This is a morbidly obese female, lying in bed, in no acute distress. HEENT: Head normocephalic. Atraumatic. Heart: S1, S2. Normal. Regular rate and rhythm. Lungs: Clear to auscultation bilaterally. No crackles. No rales. Abdomen: Positive bowel sounds. Soft, obese, nontender, nondistended. Extremities: No edema. No cyanosis. No calf tenderness. Neurologic: The patient is alert and oriented. LABORATORY DATA: White blood cell count 4.2, hemoglobin 10, hematocrit 33, platelets 101,000. Sodium 135, potassium 4, chloride 95, CO2 27, BUN 46, creatinine 4.3, glucose 125 calcium 8.4, phosphorus 4.7, albumin 3.0. ASSESSMENT AND PLAN: 1. Community-acquired pneumonia. Continue on the current antibiotic regimen. 2. End-stage renal disease. Management as per the material coordinator. 3. Volume overload. Improved. 4. Diabetic gastroparesis. Continue on Reglan. 5. Accelerated hypertension. Adjustments to the patient's antihypertensives have been made by the material coordinator. We will continue to follow this closely. 6. Reflux. Continue on Protonix and Carafate. 7. Constipation. Continue on scheduled laxative therapy. 8. Insomnia. Continue on Ambien at bedtime. 9. Deep vein thrombosis prophylaxis. Continue on heparin. 10. Disposition. The patient should be able to be discharged home tomorrow provided that her blood pressure is under better control. cc: Sivan Farias MD MTDD
[2016-08-02] MEDS: MIRALAX PO SCH (17:00)
[2016-08-02] MEDS: ZITHROMAX PO SCH (17:00)
[2016-08-02] MEDS: DULCOLAX PR SCH (19:59)
[2016-08-02] MEDS: AMBIEN PO SCH (20:00)
[2016-08-03] MEDS: PERCOCET-10 PO PRN (01:14)
[2016-08-03] MEDS: APRESOLINE PO SCH ×2 (03:16→13:38)
[2016-08-03] MEDS: CARAFATE LIQUID PO SCH ×2 (05:33→13:38)
[2016-08-03] MEDS: NORCO-5 PO PRN ×2 (05:33→13:22)
[2016-08-03] MEDS: REGLAN PO SCH ×2 (06:43→13:38)
[2016-08-03] MEDS: HUMALOG SUBQ SCH ×2 (06:43→13:37)
[2016-08-03] MEDS ORDERED: HEPARIN ONE (07:15)
[2016-08-03] MEDS ORDERED: NS 2,000 ML ONE (07:15)
[2016-08-03 07:39] LABS: MCH 30.4 PG (27-31); MCHC 32.4 g/dL (33-37); MCV 93.9 FL (81-99); MPV 10.9 FL (7.4-10.4); RBC 3.62 XMIL (4.2-5.4)
[2016-08-03 07:48] LABS: ALBUMIN 3.3 g/dL (3.5-5.0); CALCIUM 8.8 mg/dL (8.8-10.2); POTASSIUM 4.4 mmol/L (3.5-5.1)
[2016-08-03] MEDS ORDERED: NS 2,000 ML MISC PRN (07:56)
[2016-08-03] MEDS ORDERED: TIGHT: 0.2 ML/HR MISC PRN (07:56)
[2016-08-03] MEDS ORDERED: HEPARIN IV PRN (07:56)
[2016-08-03] MEDS: NORVASC PO SCH (08:28)
[2016-08-03] MEDS: PROTONIX PO SCH (08:28)
[2016-08-03] MEDS: COREG PO SCH (08:28)
[2016-08-03] MEDS: LYRICA PO SCH (08:28)
[2016-08-03] MEDS: LOTRISONE CREAM TOP SCH (08:28)
[2016-08-03] MEDS: PROZAC PO SCH (08:28)
[2016-08-03] MEDS: HEPARIN SUBQ SCH (08:28)
[2016-08-03] MEDS: TAZIDIME 2 GM in NS 100 ML IV SCH (11:20)
[2016-08-03] MEDS: D50W 250 ML, AMINOSYN 15% 500 ML, LIPOSYN 20% 250 ML IV SCH ×3 (11:20)
--- NOTE | 2016-08-03 14:26 | PROGRESS NOTE ---
DATE: 08/03/2016 SUBJECTIVE: Ms. Harley is resting quietly in bed. She has just gotten her Lovenox injection. She is getting ready to eat her breakfast. She denies any chest pain or increased work of breathing. OBJECTIVE: Her most recent vital signs: Temperature 98.2 degrees, blood pressure 176/74, heart rate 80, respirations. She is on room air. Last recorded saturation 96%. She has had 600 in, 0 recorded out. LABORATORY DATA: Sodium 134, potassium 4.4, chloride 93, CO2 24, BUN 61, creatinine 5.5, glucose 153, anion gap 17, calcium 8.8, phosphorus 5.4, albumin 3.3. Her white count 5.3, hemoglobin 11, hematocrit 34, with a platelet count of 101,000. PHYSICAL EXAMINATION: General: This is a 61-year-old white female. She is currently resting in bed. She is in no acute distress. Skin: Warm and dry. HEENT: Normocephalic , atraumatic. Conjunctiva is pink. She has TU. Mucous membranes moist. Neck: Supple. Trachea midline. No JVD. Cardiovascular: She is regular rate and rhythm. She is without murmur or gallop. Lungs: Clear to auscultation anteriorly. Equal excursion on room air. Abdomen: Round , soft, nontender. Positive bowel sounds. Genitourinary: Not inspected. Minimal void with dialysis assist. Extremities: Have no edema. No clubbing or cyanosis. Neurological: Alert and oriented x3. ASSESSMENT AND PLAN: 1. End-stage renal disease. Patient is due for her routine dialysis treatment, today is her normal prescriptive day. We will place her on a 2 K bath. She is to dialyze for 3.5 hours. We will attempt to pull patient to her dry weight. 2. Electrolytes. These are stable. 3. Acid-base balance. This is stable. 4. Anemia. This remains in target. 5. Pneumonia. Patient continues to breathe better, has no indications of difficulty or pain. 6. Gastroparesis. This is followed by primary care. I would like to thank you for allowing us to follow with this patient. Data reviewed, discussed with Sky Glaser on 08/03/16. I agree with the above assessment and plan of care. rg Dictated by WILMER Thomas for Yaya Santamaria MD cc: WILMER Thomas MD [facility]
[2016-08-03 15:16] VITALS: BP 172/64
--- NOTE | 2016-08-04 12:01 | DISCHARGE SUMMARY ---
ADMISSION DATE: 07/29/2016 DISCHARGE DATE: 08/03/2016 CONSULTATIONS: 1. Yaya Santamaria MD with Nephrology 2. Esther Forbes MD with Gastroenterology. PERTINENT PROCEDURES: 1. Abdominal x-ray showed constipation. 2. Follow up abdominal x-ray showed slight improvement of mild constipation. 3. Last chest x-ray showed interval improvement of right basilar atelectasis essentially resolved and mild left basilar opacity continues to improve near resolution. No new consolidation. DISCHARGE DIAGNOSES: 1. Community-acquired pneumonia. 2. End-stage renal disease 3. Volume overload 4. Diabetic gastroparesis. 5. Accelerated hypertension 6. Reflux. 7. Constipation. 8. Insomnia. 9. Morbid obesity 10. Chronic back pain HOSPITAL COURSE: Ms. Harley is a 52-year-old female with a longstanding history of end- stage renal disease on hemodialysis, diabetes mellitus type 2, gastroparesis and hypertension who came into the ED complaining of intense nausea and vomiting 10-12 times. Denied any hematemesis or coffee-grounds. Denied any abdominal pain stating that she was somewhat constipated, but today on the day of her admission she had 3 soft stools which were nonbloody and nonmelanotic. No fever or chills. She did state 10 days prior to admission she was treated for pneumonia and then almost completed a course of Levaquin. She had been unable to take her blood pressure medications because of the nausea and vomiting. Because of her nausea and vomiting, she did not go for her hemodialysis that was normally scheduled. Patient was admitted for intractable nausea and vomiting secondary to type 2 gastroparesis as well as community-acquired pneumonia. She was cautiously hydrated with a renal consult. The admitting physician Dr. Steel was pulled aside by the brother and was told that the patient is not compliant with her diet nor with her dialysis along with her medications, and that this has been ongoing through several times in the past. In regards to her hypokalemia, there were no EKG changes noted. She was given treatment for her hyperkalemia. Dr. Santamaria resumed the patient's hemodialysis. Her normal days are Sunday, and Sunday. They did start her on dialysis to address her volume status as well as her potassium. Dr. Forbes recommended to continue her PPI as well as her MiraLAX for her chronic constipation as well as Carafate and resume Reglan. Her diet was advanced. The patient then started having bowel movements. She was continued on her antibiotic regimen for her community- acquired pneumonia. Her volume overload improved with hemodialysis as well as her nausea and vomiting resolved with antiemetics. The patient will be discharged home today after hemodialysis. DISCHARGE DIET: Diabetic. DISCHARGE MEDICATIONS: 1. Norvasc 5 mg p.o. b.i.d. 2. Zithromax 250 mg p.o. daily x 3 days 3. Butalbital-acetaminophen 50/325 on each p.o. q.4 hours p.r.n. pain. 4. Soma 250 mg p.o. t.i.d. 5. Coreg 12.5 mg p.o. b.i.d. 6. Clonidine 0.1 mg p.o. b.i.d. 7. Lotrisone cream 1 application topical b.i.d. 8. Epogen 01665 units subcu before dialysis. 9. Vitamin D2 63160 units p.o. q.7 days. 10. Prozac 40 mg p.o. daily. 11. Apresoline 50 mg p.o. q.8 hours. 12. Reglan 5 mg p.o. t.i.d. before meals and at bedtime. 13. Zofran 1 tab p.o. q.6 hours p.r.n. 14. Percocet 10 1 each p.o. q.4 hours p.r.n. 15. Protonix 40 mg p.o. b.i.d. 16. MiraLAX 17 g p.o. p.r.n. 17. Lyrica 50 mg p.o. daily. 18. Phenergan 25 mg p.o. q.6 hours. 19. Carafate 1 g p.o. q.6h hours. 20. Ambien 10 mg p.o. at bedtime. FOLLOW UP: Patient is being discharged home today after hemodialysis. She will continue with her hemodialysis as regularly scheduled on Sunday, , and Sunday. She will follow up with Dr. Esther Forbes as indicated as well as her primary care physician, Dr. Renny Rodríguez in 7 to 10 days. The patient has been educated on medical noncompliance in relation to her diabetes as well as her end-stage renal disease. The patient can return to the ED for any worsening of symptoms. She is to continue her course of antibiotics for her community-acquired pneumonia. Dictated by WILMER Holder for Sivan Farias MD cc: MD Renny Yousif MD MTDEssie
== END 2016-08-03 15:17 | disposition home health service (06) ==
LOC: SUATTDRO 18:02 → 3N 22:00 → DIRADM 08-03 14:31
PROVIDERS: ATTEND Internal Medicine

== ENCOUNTER 2016-08-28 14:03 | Inpatient (IN) ==
[2016-08-28] MEDS ORDERED: REGLAN IV ONE (15:40)
[2016-08-28] MEDS ORDERED: NS 1,000 ML IV ONE (15:41)
[2016-08-28 16:17] LABS: BASO% 0.2 % (0.0-0.8); EOS# 0.06 X1000 (0.0-0.7); HEMATOCRIT 33.7 % (37.0-47.0); LYMPH# 0.39 X1000 (1.2-3.4); LYMPH% 6.8 % (20.5-51.1); MCH 30.6 PG (27-31); MCHC 32.6 g/dL (33-37); MCV 93.9 FL (81-99); MONO# 0.16 X1000 (0.11-0.59); MONO% 2.8 % (1.7-9.3); MPV 10.1 FL (7.4-10.4); NEUT% 89.2 % (42.2-75.2); PLT 110 X1000 (130-400); RBC 3.59 XMIL (4.2-5.4)
[2016-08-28 16:34] LABS: ALBUMIN 3.7 g/dL (3.5-5.0); CALCIUM 8.9 mg/dL (8.8-10.2); POTASSIUM 6.1 mmol/L (3.5-5.1); TOTAL BILIRUBIN 0.25 mg/dL (0.20-1.00); TOTAL PROTEIN 5.6 g/dL (6.3-8.3)
[2016-08-28] MEDS ORDERED: KAYEXALATE PO ONE (16:55)
[2016-08-28] MEDS ORDERED: ALBUTEROL NEB INH ONE (16:55)
--- NOTE | 2016-08-28 18:04 | PROVIDER DOCUMENTATION ---
This chart was entered by Anabel Rich Scribe, acting as scribe for Ezequiel Liu MD. HPI-General Adult - General Chief Complaint: Nausea/Vomiting Stated Complaint: N/V Time Seen by Provider: 08/28/16 15:28 Source: patient Allergies/Adverse Reactions: Patient Allergies Allergy/AdvReac Type Severity Reaction Status Date / Time pentazocine lactate * Allergy Severe ANAPHYLAXIS Verified 08/28/16 15:14 [From Talwin] triamterene [From Maxzide] Allergy Unknown chest pain Verified 08/28/16 15:14 nalbuphine HCl * AdvReac Intermediate NAUSEA/VOMI Verified 08/28/16 15:14 [From Nubain] TING Home Medications: Home Medication List Medication Instructions Recorded Confirmed Last Taken Type Ergocalciferol (Vitamin D2) 50,000 unit PO Q7D #10 capsule 08/25/15 08/28/16 2 Weeks Ago Rx [Vitamin D] 01922 Carisoprodol [Soma] 250 mg PO TID PRN 02/03/16 08/28/16 08/25/16 History Fluoxetine HCl [Prozac] 40 mg PO DAILY 04/03/16 08/28/16 08/27/16 21:00 History Pregabalin [Lyrica] 50 mg PO DAILY 04/03/16 08/28/16 08/27/16 21:00 History Polyethylene Glycol 3350 [Miralax] 17 gm PO PRN PRN 05/14/16 08/28/16 3 Days Ago History Metoclopramide [Reglan] 5 mg PO TID AC #90 tablet 05/26/16 08/28/16 2 Days Ago Rx Zolpidem [Ambien] 10 mg PO QHS #15 tablet 05/26/16 08/28/16 08/27/16 21:00 Rx Amlodipine [Norvasc] 5 mg PO BID #60 tablet 05/29/16 08/28/16 08/27/16 21:00 Rx Clotrimazole/Bmethasone Cream 1 applic TOP BID #2 tube 05/29/16 08/28/16 2 Days Ago Rx [Lotrisone Cream] Oxycodone/APAP 10 mg/325 mg 1 each PO Q4H PRN PRN #30 tablet 05/29/16 08/28/16 08/27/16 21:00 Rx [Percocet-10] Promethazine [Phenergan] 25 mg PO Q6H PRN PRN #5 tablet 05/29/16 08/28/16 21:00 Rx Ondansetron HCl [Zofran] 1 tab PO Q6H PRN PRN #15 tablet 07/22/16 08/28/16 1 Day Ago Rx 1 Butalbital/Acetaminophen 1 each PO Q4H PRN PRN 07/30/16 08/28/16 3 Days Ago History [Butalbital-Acetaminophn 50-325] Clonidine HCl 0.1 mg PO BID PRN PRN 07/30/16 08/28/16 Unknown History Epoetin Mason [Epogen] 10,000 unit SUBQ BEFORE DIALYSIS 07/30/16 08/28/16 History Carvedilol [Coreg] 12.5 mg PO BID #60 tablet 08/03/16 08/28/16 08/27/16 21:00 Rx Hydralazine [Apresoline] 50 mg PO Q8H #90 tablet 08/03/16 08/28/16 08/27/16 21: 00 Rx - History of Present Illness -Gen Adult Nature of Presenting Problems: Pt is 61 y/o F presents to the ED with N. Pt states ran out of reglan and N started after. Pt states V started last night Location of Pain/Injury: reports: none Pain Radiation: reports: no radiation Quality of Pain: reports: none Onset/Duration: reports: last night Timing: reports: still present Context/Activities at Onset: reports: light activity Modifying Factors: improves with: nothing Associated Symptoms: reports: nausea, vomiting. denies: anxiety, arm pain, back /neck pain, chest pain, constipation, cough, diaphoresis, diarrhea, dizziness, EENT symptoms, fatigue, fever/chills, genitourinary problems, headaches, heartburn, joint pain, loss of appetite, malaise, muscle aches, sinus congestion /drainage, rash, seizure, shortness of breath, sensory/motor loss, pain with inspiration, swelling/mass in abdomen, syncope, weakness, trouble walking Similar Symptoms Previously?: Yes Recently seen or treated by another doctor?: No Review of Systems - Adult - REVIEW OF SYSTEMS - ADULT Constitutional: reports: no symptoms reported Eyes: reports: no symptoms reported Ears, Nose, Mouth & Throat: reports: no symptoms reported Cardiovascular: reports: no symptoms reported Respiratory: reports: no symptoms reported Gastrointestinal: reports: nausea, vomiting. denies: abdominal pain, diarrhea Genitourinary: reports: no symptoms reported Musculoskeletal: reports: no symptoms reported Integumentary: reports: no symptoms reported Neurological: reports: no symptoms reported Psychiatric: reports: no symptoms reported Endocrine: reports: no symptoms reported Hematologic/Lymphatic: reports: no symptoms reported Allergic/Immunologic: reports: no symptoms reported All Other Systems: Reviewed and Negative Past History - Adult - PAST MEDICAL HISTORY-ADULT Review of Records: reports: Nursing Assessment Review, Medications Reviewed, Social history reviewed & non-contributory. Major Childhood Illnesses: reports: denies history Cardiovascular: reports: HTN, murmur Respiratory: reports: asthma Gastrointestinal: reports: GERD Obstetrical/Gynecological: reports: other (cervical cancer single) Genitourinary: reports: dialysis (T/Thr/Sat), ESRD, kidney disease Musculoskeletal: reports: arthritis, chronic pain (back), fibromyalgia Neurological: reports: headaches/migraines, other (idiopathic neuralgia ) Endocrine/Immune: reports: Diabetes Other Conditions: reports: cataract/glaucoma - PRIOR SURGERIES/PROCEDURES Surgical/Procedure History: reports: hysterectomy, indwelling device, tonsillectomy, other (abdominoplasty/carpal tunnel/ r port chest) - PRIOR HOSPITALIZATIONS Prior Hospitalizations: reports: for similar symptoms - IMMUNIZATION STATUS Childhood Immunizations: See Nurse Assessment Flu Vaccine: See Nurse Assessment - FAMILY HISTORY Family History: reviewed, not pertinent - SOCIAL HISTORY Smoking: denies Substance Use: denies Living Situation: family Physical Exam-General - PHYSICAL EXAM-ADULT Initial Vital Signs Reviewed: Yes - CONSTITUTIONAL General Appearance: appears well, alert, no apparent distress - EYES Eyes: PERRL/EOMI, pink conjunctivae - HEAD, EARS, NOSE, MOUTH & THROAT HENMT: normocephalic/atraumatic, moist mucous membranes, normal ENT inspection, TMs normal, pharynx normal - NECK Neck: non-tender, full range of motion, supple, normal inspection - RESPIRATORY Respiratory: chest non-tender, lungs clear, normal breath sounds, no pleuratic chest pain, no respiratory distress, no accessory muscle use - CARDIOVASCULAR Cardiovascular: normal peripheral pulses, regular rate, rhythm, no edema, no gallop, no JVD, no murmur - GASTROINTESTINAL (ABDOMEN) Abdominal Exam: normal bowel sounds, non tender, soft, no organomegaly, no pulsatile mass - LYMPHATIC Lymphatic: no adenopathy - MUSCULOSKELETAL Back Exam: normal inspection, no CVA tenderness, no vertebral tenderness Extremity: normal range of motion, non-tender, normal gait, normal inspection, no pedal edema, no calf tenderness, normal capillary refill - SKIN Integumentary: normal color, normal turgor, warm/dry - NEUROLOGIC Neurologic: grossly normal - PSYCHIATRIC Psych/Mental Status: normal mood/affect, oriented x 3 Progress - PLAN OF CARE/RESULTS Progress/Plan/Lab Results: Vital Signs - 8 hr 08/28/16 14:35 Temperature 98.8 F Pulse Rate 74 Respiratory Rate 20 Blood Pressure 210/83 O2 Sat by Pulse Oximetry 94 L Orders Category Date Time Status AMYLASE [CHEM] Stat Lab 08/28/16 15:33 Uncollected CBC WITH ELECTRONIC DIFF [HEME] Stat Lab 08/28/16 15:30 Uncollected CMP [COMPREHENSIVE METABOLIC PANEL] [CHEM] Stat Lab 08/28/16 15:30 Uncollected LIPASE [CHEM] Stat Lab 08/28/16 15:33 Uncollected UA NIMS W/REFLEX CULT [URINALYSIS] Stat Lab 08/28/16 15:30 Uncollected 0.9% Sodium Chloride Inj [Ns] 1,000 ml Med 08/28/16 15:41 Active IV 999 mls/hr Metoclopramide [Reglan] Med 08/28/16 15:40 Discontinued 10 mg IV NOW ONE Result Diagrams: 08/28/16 14:57 08/28/16 14:57 - REASSESSMENT Reassessment #1 Time Reassessed: 18:01 Status: improving (Pt wants to be admitted as she lives alone. Dr Altamirano says that she is stable to await dialysis in the am.) - CONSULTS/PCP/HOSPITALIST Notification #1 *Consult/PCP/Hospitalist*: Dr glover Time Discussed: 18:02 Reason/Comments: discussed nausea and hyperkalemia and plan for dialysis in am Departure - Departure Time of Disposition Decision: 18:03 DIAGNOSIS: Hyperkalemia, Gastroparesis CRF (chronic renal failure) Qualifiers: Chronic kidney disease stage: stage 4 (severe) Qualified Code(s): N18.4 - Chronic kidney disease, stage 4 (severe) Intractable nausea and vomiting Qualifiers: Vomiting type: unspecified Qualified Code(s): R11.2 - Nausea with vomiting, unspecified Disposition: ADMITTED INPATIENT 09 Certified Medical Emergency: Emergent Condition: Stable Referrals and Follow-Ups: None,PCP [Primary Care Provider] - - Critical Care Note This patient required my direct & personal management of CC.: No This chart was documented by the indicated scribe, (Anabel Rich Scribe) and accurately reflects the services I performed and decisions made by me, Ezequiel Liu MD, as attested by the provider's signature.
--- NOTE | 2016-08-28 18:24 | Diag Imaging Result Document ---
PROCEDURE NAME: CHEST-2 VIEWS - 08/28/2016 FONTAL AND LATERAL CHEST, 2 VIEWS: COMPARISON: Compared to 08/01/2016. No change in the double lumen left-sided catheter. No pneumothorax. The heart remains enlarged. There is central vascular prominence. No pleural effusions. No consolidation. IMPRESSION: Cardiomegaly with central vascular distention.
[2016-08-28] MEDS ORDERED: LABETALOL IV PRN (19:06)
[2016-08-28] MEDS ORDERED: LABETALOL IV ONE (19:06)
[2016-08-28] MEDS ORDERED: PHENERGAN IV PRN (19:08)
[2016-08-28] MEDS ORDERED: SODIUM CHLORIDE 0.9% INJ PRN (19:08)
[2016-08-28] MEDS ORDERED: PERCOCET-10 PO PRN (19:12)
[2016-08-28] MEDS ORDERED: ESGIC PO PRN (19:12)
[2016-08-28] MEDS ORDERED: CATAPRES PO PRN (19:12)
[2016-08-28] MEDS ORDERED: SOMA PO PRN (19:12)
[2016-08-28] MEDS ORDERED: EPOGEN SUBQ SCH (19:15)
[2016-08-28] MEDS ORDERED: ALBUTEROL 0.5% INH CONC FOR HYPERKALEMIA INH ONE (19:16)
[2016-08-28] MEDS ORDERED: SODIUM BICARBONATE 8.4% IV PUSH ONE (19:17)
[2016-08-28] MEDS ORDERED: HUMULIN R IV ONE (19:18)
[2016-08-28] MEDS ORDERED: D50W SYRINGE IV ONE (19:18)
--- NOTE | 2016-08-28 22:39 | HISTORY AND PHYSICAL ---
PRIMARY CARE PHYSICIAN: Renny Rodríguez MD in [place]. FURNITURE REPAIRER: Yaya Santamaria MD. CHIEF COMPLAINT: "Nausea and vomiting since midnight" HISTORY OF PRESENT ILLNESS: Ms. Harley is a 61-year-old female with a history of end-stage renal disease on hemodialysis, hypertension, morbid obesity, back pain and diabetic gastric ulcers, who presented to the ER today with a chief complaint of persistent nausea and vomiting. The patient reports that at midnight she started having nausea and by breakfast time the patient was continuously vomiting. She denied having any abdominal pain, diarrhea, shortness of breath or chest pain. The patient's last bowel movement was this morning. The patient states that she was unable to take her scheduled medications today due to the persistent nausea and vomiting. The patient was dialyzed on Sunday on schedule. The patient also reports that she fell and landed on her tailbone on Sunday and ever since then she has been having severe back pain. In the ER, a chest x-ray was done that showed central vascular distention and cardiomegaly. The patient's blood pressure was noted to be elevated at 206/92. The patient is due for dialysis tomorrow. The patient stated that she did not feel comfortable going home because she was unable to keep any food down. PAST MEDICAL HISTORY: 1. End-stage renal disease on hemodialysis Sunday, and Sunday. 2. Situational depression. 3. Hypertension. 4. Diabetes mellitus type 2. 5. Anemia of chronic disease. 6. History of cervical cancer. 7. Constipation. 8. Diabetic gastroparesis. 9. Morbid obesity. 10. Chronic lower back pain. 11. Chronic thrombocytopenia PAST SURGICAL HISTORY: 1. Laminectomy. 2. Left Vas-Cath placement. 3. Right wrist fracture. 4. Cholecystectomy. 5. Hysterectomy. 6. Abdominoplasty. 7. Left tibial fracture repair. 8. Bilateral carpal tunnel release. SOCIAL HISTORY: The patient has a remote history of smoking. She denies any alcohol or illicit drug use. FAMILY HISTORY: Positive for atrial fibrillation, CVA, diabetes and colon polyps. ALLERGIES: 1. Nubain. 2. Maxzide. 3. Talwin. HOME MEDICATIONS: 1. Vitamin D2, 50,000 units oral every 7 days. 2. MiraLAX 17 g p.o. daily p.r.n. for constipation. 3. Reglan 5 mg p.o. 3 times a day before meals. 4. Zofran 4 mg p.o. every 6 hours p.r.n. for nausea. 5. Soma 250 mg p.o. 3 times a day p.r.n. 6. Epogen 10,000 units subcutaneously for dialysis. 7. Clonidine 0.1 mg p.o. twice a day p.r.n. for systolic blood pressure greater than 170. 8. Phenergan 25 mg p.o. every 6 hours p.r.n. for nausea. 9. Lyrica 50 mg p.o. daily. 10. Percocet 10/325, 1 tab oral every 4 hours p.r.n. for pain. 11. Hydralazine 50 mg p.o. every 8 hours. 12. Prozac 40 mg p.o. daily. 13. Coreg 12.5 mg p.o. twice a day. 14. Norvasc 5 mg p.o. twice a day. 15. Ambien 10 mg p.o. at bedtime. REVIEW OF SYSTEMS: All other review of systems are negative. Please refer to the history of present illness for pertinent positives and negatives PHYSICAL EXAMINATION: VITAL SIGNS: Temperature 98.4 degrees, blood pressure 206/92, heart rate 73, respirations 18, O2 saturations 97% on 2 L nasal cannula. GENERAL: This is a chronically ill-appearing, obese female, lying on the stretcher in no acute distress. HEENT: Head: Normocephalic, atraumatic. Eyes: Conjunctivae clear, EOMI, PERRLA. HEART: S1, S2 normal. Regular rate and rhythm. LUNGS: Equal air entry bilaterally. No crackles, no rales. ABDOMEN: Positive bowel sounds. Soft. The patient does have a small subcutaneous mass in the left lower quadrant on palpation. EXTREMITIES: +1 edema. No cyanosis. No calf tenderness. NEUROLOGIC: The patient is alert and oriented x3. LABS: White blood cell count 5.7, hemoglobin 11, hematocrit 33, platelets 110, 000. Sodium 135, potassium 6.1, chloride 93, CO2 20, BUN 75, creatinine 5.8, glucose 142, total protein 5.6. Chest x-ray shows cardiomegaly and central vascular distention. ASSESSMENT AND PLAN: 1. Diabetic gastroparesis. The patient has received antiemetics while in the ER. She states that her nausea has subsided. We will place the patient on a clear liquid diet and restart Reglan. 2. Hyperkalemia. This was treated with albuterol, D50, regular insulin and sodium bicarbonate. This will be further addressed during dialysis tomorrow. 3. End-stage renal disease. The patient is scheduled to undergo dialysis tomorrow. We will consult Dr. Santamaria for dialysis support. 4. Diabetes mellitus type 2. We will start the patient on regular insulin sliding scale and a diabetic diet. 5. Chronic lower back pain. We will restart p.r.n. Percocet. 6. Accelerated hypertension. We will restart the patient's home antihypertensives and order p.r.n. labetalol. 7. Constipation. Continue on MiraLAX. 8. Chronic thrombocytopenia. We will monitor the patient's platelet count closely. Avoid heparin. 9. Volume overload. The patient is scheduled to undergo dialysis tomorrow. 10. Deep vein thrombosis prophylaxis. The patient is thrombocytopenic so we will hold heparin usage at this time. cc: Sivan Farias MD MTDD
[2016-08-28] MEDS: AMBIEN PO SCH (22:58)
[2016-08-28] MEDS: NORVASC PO SCH (22:58)
[2016-08-28] MEDS: COREG PO SCH (22:58)
[2016-08-28] MEDS: APRESOLINE PO SCH (22:58)
[2016-08-28] MEDS: DILAUDID IV PRN (23:01)
[2016-08-28] MEDS: HUMULIN R SUBQ SCH (23:46)
[2016-08-29] MEDS: ZOFRAN IV PRN ×3 (01:53→21:26)
[2016-08-29] MEDS: DILAUDID IV PRN ×4 (02:53→21:26)
[2016-08-29] MEDS ORDERED: HEPARIN IV PRN (05:45)
[2016-08-29] MEDS ORDERED: TIGHT: 0.2 ML/HR MISC PRN (05:45)
[2016-08-29] MEDS ORDERED: NS 2,000 ML MISC PRN (05:45)
--- NOTE | 2016-08-29 05:47 | EKG Report ---
Test Performed on : 08/28/2016 6:23:49 PM Test Reason : Blood Pressure : / mmHG Vent. Rate : 075 BPM Atrial Rate : 075 BPM P-R Int : 176 ms QRS Dur : 098 ms QT Int : 418 ms P-R-T Axes : 035 -27 061 degrees QTc Int : 466 ms Normal sinus rhythm. Moderate voltage criteria for LVH, may be normal variant Borderline ECG When compared with ECG of 31-JUL-2016 06:51, No significant change was found Unconfirmed Result
[2016-08-29 05:49] LABS: HEMATOCRIT 30.8 % (37.0-47.0); HEMOGLOBIN 9.8 g/dL (12.0-16.0); MCH 30.2 PG (27-31); MCHC 31.8 g/dL (33-37); MCV 95.1 FL (81-99); MPV 10.1 FL (7.4-10.4); RBC 3.24 XMIL (4.2-5.4)
[2016-08-29] MEDS: PROTONIX IV SCH ×2 (05:52→07:32)
[2016-08-29] MEDS: SODIUM CHLORIDE 0.9% INJ SCH (05:52)
[2016-08-29] MEDS: REGLAN PO SCH ×4 (05:53→15:00)
[2016-08-29] MEDS: APRESOLINE PO SCH ×3 (05:53→21:26)
[2016-08-29 06:03] LABS: HEMOGLOBIN A1C 5.4 % (4.8-6.0)
[2016-08-29 06:06] LABS: ALBUMIN 3.2 g/dL (3.5-5.0); CALCIUM 8.7 mg/dL (8.8-10.2); POTASSIUM 5.4 mmol/L (3.5-5.1)
[2016-08-29] MEDS: DUONEB (A & A) INH PRN ×4 (07:26→23:10)
[2016-08-29] MEDS: HUMULIN R SUBQ SCH ×4 (07:41→23:13)
[2016-08-29] MEDS ORDERED: FIORICET PO PRN (08:05)
--- NOTE | 2016-08-29 08:26 | Diag Imaging Result Document ---
PROCEDURE NAME: LUMBAR SPINE W/O CONTRAST - 08/28/2016 CT LUMBAR SPINE WITHOUT CONTRAST: FINDINGS: There is good alignment to the lumbar spine. No compressed vertebra. No other fracture. No subluxation. Degenerative bone spurring is found throughout the lumbar spine. There are postsurgical changes on the left inferiorly. There are vacuum disks at L4-5 and L5-S1. There are multilevel posterior bone spurs with bulging disks resulting in multilevel at least mild spinal stenosis. No disk herniation identified. There is neural foraminal narrowing inferiorly at multiple levels at the level of the prior surgery. IMPRESSION: 1. Moderate degenerative changes. 2. Prior surgery in the lower lumbar spine. 3. Multilevel mild spinal stenosis due to posterior bone spurs and bulging disks, as well as facet hypertrophy, but no disk herniation identified. A preliminary report was given at 9:29 p.m.
--- NOTE | 2016-08-29 08:37 | Diag Imaging Result Document ---
PROCEDURE NAME: ABDOMEN/PELVIS W/O CONTRAST - 08/28/2016 CT ABDOMEN AND PELVIS WITHOUT CONTRAST: TECHNIQUE: No contrast administered per request of the referring provider. A dose reduction protocol was used. Compared with 05/15/2016. FINDINGS: There are small right and tiny left pleural effusions which has decreased. There is generalized subcutaneous edema similar to the previous exam compatible with anasarca. There is a small cyst in the dome of the liver, which is stable. There is mild hepatosplenomegaly which is stable. There are no other focal liver or splenic lesions identified. There are no acute abnormalities of the adrenal glands, or pancreas identified. The gallbladder is surgically absent. There is no renal stone or hydronephrosis identified. There are nonspecific small retroperitoneal lymph nodes. There is a small fat-containing midline anterior abdominal wall hernia near the umbilicus. There is a possible surgical mesh at the anterior abdominal wall which is centered at the midline at the mid abdomen, above the above-mentioned hernia. There is no bowel-containing hernia identified. There is no evidence of bowel obstruction. The appendix is not discretely identified but there is no pericecal inflammation seen. There is mild uncomplicated colonic diverticulosis. There is no abscess identified. There is no free air or substantial free fluid identified. There is a 2.6 x 1.7 cm lobulated soft-tissue nodular lesion at the left lower quadrant anterior abdominal wall. There is a small amount of air at this location on the previous exam. This may represent an injection granuloma. IMPRESSION: 1. Anasarca similar to prior. 2. Mild hepatosplenomegaly similar to prior. 3. Small paraumbilical hernia which contains fat but does not contain bowel. No bowel-containing hernia seen. 4. No bowel obstruction. 5. Uncomplicated colonic diverticulosis. No abscess. No free air. 6. 2.6 x 1.7 cm anterior subcutaneous nodule over left lower quadrant. This is nonspecific but may represent an injection granuloma. 7. Small right and tiny left pleural effusions. The on-call radiologist provided preliminary results at 9:22 p.m. on 08/28/2016.
[2016-08-29] MEDS ORDERED: NS 2,000 ML ONE (11:56)
[2016-08-29] MEDS: PROZAC PO SCH (13:19)
[2016-08-29] MEDS: COREG PO SCH ×2 (13:19→21:26)
[2016-08-29] MEDS: NORVASC PO SCH ×2 (13:19→21:26)
[2016-08-29] MEDS: LYRICA PO SCH (13:25)
--- NOTE | 2016-08-29 15:05 | CONSULTATION ---
DATE OF CONSULTATION: 08/29/2016 REASON FOR ADMISSION: Nausea and vomiting for greater then 12-14 hours. CONSULTING PHYSICIAN: Dr. Farias. HISTORY OF PRESENT ILLNESS: Ms. Harley is a 61-year-old white female who is known to our outpatient services for hemodialysis on Sunday, , Sunday. Patient stated that she started with emesis approximately midnight prior to presenting to the emergency department. She said that it had not gone away by breakfast; she had continual vomiting with dry heaves. She denied having any abdominal pain or diarrhea. She denies chest pain or increased work of breathing. No hematochezia. No hemoptysis. Her last dialysis treatment was on Sunday. She reports that she stayed for partial treatment secondary to having back pain due to a fall Sunday prior to her dialysis. Patient was subsequently found to have an elevated blood pressure of 206/92. States that she was uncomfortable going home and waiting for her dialysis secondary to greater than 12 hours of emesis. Subsequently, patient has been admitted and is being worked up for further evaluation and is in need for dialysis. PAST MEDICAL HISTORY: End-stage renal disease with hemodialysis on Sunday, , Sunday at the [facility]. She has a history of hypertension, diabetes mellitus type 2 , anemia secondary to chronic disease, diabetic gastroparesis, diabetic neuropathy, chronic thrombocytopenia, chronic lower back pain. She has a history of depression and anxiety, history of morbid obesity, and constipation. PAST SURGICAL HISTORY: Laminectomy, left Vas-Cath placement, right wrist fracture, cholecystectomy, hysterectomy, abdominoplasty, left tibia fracture repair, bilateral carpal tunnel release. SOCIAL HISTORY: She currently resides in a penitentiary facility. She has a history of smoking, former. Denies any tobacco, alcohol or illicit drug use at this time. FAMILY HISTORY: Positive for heart disease, atrial fibrillation, CVA, diabetes , and colon polyps. Negative for renal. CURRENT ALLERGIES: To Nubain and Maxzide and Talwin. HOME MEDICATIONS: Have been reviewed. Vitamin D 2, MiraLAX, Reglan, Zofran, Soma, clonidine, Phenergan, Lyrica, Percocet, hydralazine, Prozac, Coreg, Norvasc, and Ambien. Patient also receives Ferrlecit, Epogen, IV iron, and Rocaltrol as indicated at the outpatient clinic. REVIEW OF SYSTEMS: Times 10 with pertinent positives listed above in the HPI. VITAL SIGNS: Her most recent vital signs, her temperature is 97.3 degrees, blood pressure 162/65, heart rate 64, respirations 18. She is currently on 2 L nasal cannula. Last recorded saturation is 100%. She has had 240 in. She has had 0 recorded out with need for dialysis today. LABS: Her most recent labs indicate a sodium of 139, potassium 5.4, chloride 95 , CO2 23, BUN 82, creatinine 6.5, glucose 69, anion gap of 21, calcium 8.7, phosphorus 8.7, albumin of 3.2. Her BNP is greater than 35,000. Potassium on admission was 6.1, down this morning to 5.4. PHYSICAL EXAMINATION: General: This is a 61-year-old white female. She is currently resting in bed. She is in no acute distress. Skin: Warm and dry. HEENT: Normocephalic , atraumatic. Conjunctivae pink. She has TU. Mucous membranes moist. Neck: Supple. Trachea midline. No JVD. Cardiovascular: She is regular rate and rhythm. She is without a gallop. Soft murmur. Lungs: Clear to auscultation anteriorly. Equal excursion. On O2. Abdomen: Round, soft, nontender. Positive bowel sounds x4. Genitourinary: Not inspected. Minimal void with dialysis assist. Extremities: Have 1+ edema. No clubbing or cyanosis. Integumentary: No rashes or lesions evident. She does have some ecchymoses noted to her posterior buttock, worse towards the left side. Neurological: Alert and oriented x3. ASSESSMENT AND PLAN: 1. End-stage renal disease. Patient is due for her routine dialysis treatment today. We will dialyze her for 3.[address] her on a 2 K bath. We will pull her to her outpatient dry weight. Extra HD tomorrow for volume management. rg 2. Electrolytes. Patient had hyperkalemia this was treated with D50, insulin, and sodium bicarbonate, and is now at a stable rate. We will plan for correction on dialysis. 3. Acid-base balance. This remains stable. 4. Anemia. This remains low, but stable. 5. Abdominal pain with chronic nausea and vomiting. This is followed by the primary care team. She continues on her MiraLAX. 6. Fluid volume overload. Patient had an elevated BNP. Again, we will correct this on dialysis. I would like to thank you for allowing us to follow with this patient. Seen, data reviewed, discussed with Sky Glaser on 08/29/16. I agree with the above assessment and plan of care. rg Dictated by WILMER Thomas for Yaya Santamaria MD cc: WILMER Thomas MD [facility]
--- NOTE | 2016-08-29 21:22 | PROGRESS NOTE ---
DATE: 08/29/2016 SUBJECTIVE: The patient complains of a migraine headache this morning and states that she is hungry and wants to eat. OBJECTIVE: Vital Signs: Temperature 98.2 degrees, blood pressure 153/71, heart rate 71, respirations 20, O2 saturations 94% on 2 L nasal cannula. General: This is a morbidly obese female, lying on the stretcher, in no acute distress. Head: Normocephalic, atraumatic. Heart: S1, S2. Normal. Regular rate and rhythm. Lungs: Clear to auscultation bilaterally. No crackles. No rales. Abdomen: Positive bowel sounds. Soft. Positive for a palpable mass in the left lower quadrant pain. Extremities: +1 edema. No cyanosis. No calf tenderness. Neurologic: The patient is alert and oriented x3. LABS: White blood cell count 6.7, hemoglobin 9.8, hematocrit 30, platelets 131,000. Sodium 139, potassium 5.4, chloride 95, CO2 23, BUN 82, creatinine 6.5, glucose 108, albumin 3.2. ASSESSMENT AND PLAN: 1. Diabetic gastroparesis. This appears to have improved. We will start the patient on a diabetic diet. Continue on Reglan. 2. Volume overload. This will be addressed during dialysis today. 3. Hypertension. Continue on the current antihypertensives. 4. Left lower quadrant subcutaneous mass. The CT was reviewed. We will continue to monitor this closely. 5. Diabetes mellitus type 2. Continue on sliding scale insulin. 6. End-stage renal disease. The patient is due for dialysis today. 7. Constipation. Continue on MiraLAX. 8. Chronic lower back pain. Continue on p.r.n. Percocet. 9. Deep vein thrombosis prophylaxis. We will start the patient on heparin 5000 units subcutaneous every 12 hours. 10. We will consult Physical Therapy. cc: Sivan Farias MD
[2016-08-29] MEDS: AMBIEN PO SCH (21:26)
[2016-08-29] MEDS: HEPARIN SUBQ SCH (21:30)
[2016-08-30] MEDS: DUONEB (A & A) INH PRN ×2 (03:35→07:48)
[2016-08-30] MEDS: DILAUDID IV PRN ×4 (05:00→22:33)
[2016-08-30] MEDS: REGLAN PO SCH ×4 (05:01→17:27)
[2016-08-30] MEDS: SODIUM CHLORIDE 0.9% INJ SCH (05:01)
[2016-08-30] MEDS: PROTONIX IV SCH ×2 (05:01→06:06)
[2016-08-30] MEDS: APRESOLINE PO SCH ×3 (05:01→22:20)
[2016-08-30] MEDS: HUMULIN R SUBQ SCH ×4 (06:05→22:32)
[2016-08-30 07:11] LABS: HEMATOCRIT 29.5 % (37.0-47.0); HEMOGLOBIN 9.2 g/dL (12.0-16.0); MCH 30.8 PG (27-31); MCHC 31.2 g/dL (33-37); MCV 98.7 FL (81-99); MPV 9.8 FL (7.4-10.4); RBC 2.99 XMIL (4.2-5.4)
[2016-08-30 07:15] LABS: ALBUMIN 3.3 g/dL (3.5-5.0); CALCIUM 8.5 mg/dL (8.8-10.2); POTASSIUM 4.8 mmol/L (3.5-5.1)
--- NOTE | 2016-08-30 08:30 | PROGRESS NOTE ---
DATE: 08/30/2016 SUBJECTIVE: Ms. Harley states that she is feeling a little bit better. She has no complaints of chest pain or increased work of breathing. VITAL SIGNS: Last temperature 98.3 degrees, blood pressure 168/80, heart rate 70 respirations 16. She is on 2 L nasal cannula. Last recorded saturation is 95%. She has had 1300 in; she has had 3400 out with 3 L on dialysis. LABORATORY DATA: Sodium 141, potassium 4.8, chloride 98, CO2 28, BUN 43, creatinine 4.4, glucose 101. Anion gap of 15. Calcium 8.5, phosphorus 6.2, albumin 3.3. White count 5.05, hemoglobin 9.2, hematocrit 29.5, with a platelet count of 117,000. Her blood cultures show no growth after 48 hours. OBJECTIVE: General: This is a 61-year-old white female currently resting in bed. She has just finished a breathing treatment. She is in no acute distress. HEENT: Normocephalic, atraumatic. Conjunctivae pink. She has TU. Mucous membranes moist. Neck: Supple. Trachea midline. No JVD. Cardiovascular: Regular rate and rhythm. She is without murmur or gallop. Lungs: Clear to auscultation. Equal excursion. She remains on O2. Abdomen: Round, soft, nontender. Positive bowel sounds. Genitourinary: Not inspected. Minimal void with dialysis assist. Extremities: She has trace to 1+ lower extremity edema. She has an AV fistula to the right forearm; it has good thrill palpable. Tunnel catheter to the right chest wall. Neurological: Alert and oriented x3. ASSESSMENT AND PLAN: 1. End-stage renal disease. Patient had her routine dialysis treatment yesterday. She has no indications of fluid volume overload. We will plan for dialysis this morning to assist with her fluid volume overload. We will plan for 3hours of UF with attempt at 4-6L. 2. Electrolytes. Hyperkalemia is corrected on dialysis. 3. Acid-base balance. This remains stable. 4. Anemia. This is low, but stable. Abdominal pain with nausea and vomiting. This has resolved. 5. Fluid volume overload. This continues to have improved status post dialysis yesterday. May possibly attempt to challenge her dry weight today. I would like to thank you for allowing us to follow with this patient. Seen, data reviewed, discussed with Sky Glaser on 08/30/16. I agree with the above assessment and plan of care. rg Dictated by WILMER Thomas for Yaya Santamaria MD cc: WILMER Thomas MD [facility]
[2016-08-30] MEDS ORDERED: HEPARIN IV PRN (08:38)
[2016-08-30] MEDS ORDERED: TIGHT: 0.2 ML/HR MISC PRN (08:38)
[2016-08-30] MEDS ORDERED: NS 2,000 ML MISC PRN (08:38)
[2016-08-30] MEDS: PROZAC PO SCH (08:38)
[2016-08-30] MEDS: HEPARIN SUBQ SCH ×2 (08:39→22:21)
[2016-08-30] MEDS: LYRICA PO SCH (08:44)
[2016-08-30] MEDS ORDERED: VITAMIN D PO SCH (09:00)
[2016-08-30] MEDS: ZOFRAN IV PRN (12:21)
[2016-08-30] MEDS ORDERED: NS 2,000 ML ONE (13:30)
--- NOTE | 2016-08-30 13:44 | PROGRESS NOTE ---
DATE: 08/30/2016 SUBJECTIVE: The patient complains of left-sided earache and nasal congestion. She states that her nausea and vomiting has resolved. OBJECTIVE: Vital Signs: Temperature 98.5 degrees, blood pressure 158/65, heart rate 73, respirations 17, O2 saturations 92% on 2 L nasal cannula. General: This is a morbidly obese, elderly female, lying in bed in no acute distress. HEENT: Head normocephalic, atraumatic. Heart: S1, S2 normal. Regular rate and rhythm. Lungs: Clear to auscultation bilaterally. Abdomen: Positive bowel sounds. Soft, obese, nontender, nondistended. Extremities: No edema, no cyanosis, no calf tenderness. Neurologic: The patient is alert and oriented x3. No focal neurologic deficits noted. LABORATORY DATA: White blood cell count 5, hemoglobin 9.2, hematocrit 29, platelets 117,000. Sodium 141, potassium 4.8, chloride 98, CO2 of 28, BUN 43, creatinine 4.4, glucose 101. Phosphorus 6.2. ASSESSMENT AND PLAN: 1. Diabetic gastroparesis, improved. Continue on Reglan. 2. Volume overload. This will be addressed during dialysis. 3. Hypertension. Continue on the current antihypertensives. 4. Diabetes mellitus type 2. Continue on sliding scale insulin. 5. End-stage renal disease. Management as per the shell grader. 6. Constipation. Will restart the patient's MiraLAX. 7. Chronic lower back pain. Continue on as needed Percocet. 8. Sinusitis. Will start oral antibiotic therapy. 9. Deep vein thrombosis prophylaxis. Continue on heparin 5000 units subcutaneously every 12 hours. 10. Continue with physical therapy. 11. Disposition. The patient will be discharged to rehab once medically stable. cc: Sivan Farias MD [facility]
--- NOTE | 2016-08-30 15:33 | Diag Imaging Result Document ---
PROCEDURE NAME: PARANASAL SINUSES - 08/30/2016 CT SINUSES WITHOUT CONTRAST: FINDINGS: There are bilateral maxillary windows from prior surgery. No maxillary opacification or air fluid levels. There is minimal mucosal thickening in the right and left maxillary sinus. Left sphenoid sinus is opacified. Normal frontal sinuses and right sphenoid sinus. Minimal mucus in the ethmoid sinus. Normal mastoid sinuses. No bone destruction or bony expansion. IMPRESSION: Mild sinusitis.
[2016-08-30] MEDS: COREG PO SCH ×2 (17:26→22:20)
[2016-08-30] MEDS: NORVASC PO SCH ×2 (17:27→22:20)
[2016-08-30] MEDS: MIRALAX PO SCH (22:19)
[2016-08-30] MEDS: AMBIEN PO SCH (22:33)
[2016-08-30] MEDS: AUGMENTIN PO SCH (22:43)
[2016-08-31] MEDS: DILAUDID IV PRN ×4 (02:46→14:03)
[2016-08-31] MEDS ORDERED: HEPARIN IV PRN (05:41)
[2016-08-31] MEDS ORDERED: NS 2,000 ML MISC PRN (05:41)
[2016-08-31] MEDS ORDERED: TIGHT: 0.2 ML/HR MISC PRN (05:41)
[2016-08-31] MEDS: SODIUM CHLORIDE 0.9% INJ SCH (05:52)
[2016-08-31] MEDS: REGLAN PO SCH ×3 (05:52→12:05)
[2016-08-31] MEDS: PROTONIX IV SCH ×2 (05:52→06:15)
[2016-08-31] MEDS: APRESOLINE PO SCH ×2 (05:52→14:44)
[2016-08-31] MEDS: HUMULIN R SUBQ SCH ×3 (06:17→12:06)
[2016-08-31 06:25] LABS: MANUAL DIFF NEEDED? NO
[2016-08-31 06:31] LABS: BASO% 0.4 % (0.0-0.8); EOS# 0.34 X1000 (0.0-0.7); EOS% 6.5 % (0.0-10.0); HEMATOCRIT 30.5 % (37.0-47.0); HEMOGLOBIN 9.8 g/dL (12.0-16.0); IMM GRAN# 0.02 X1000 (0.0-0.04); IMM GRAN% 0.4 % (0.0-0.5); LYMPH# 1.25 X1000 (1.2-3.4); LYMPH% 23.8 % (20.5-51.1); MCHC 32.1 g/dL (33-37); MCV 96.5 FL (81-99); MONO# 0.44 X1000 (0.11-0.59); MONO% 8.4 % (1.7-9.3); MPV 9.7 FL (7.4-10.4); NEUT% 60.5 % (42.2-75.2); PLT 118 X1000 (130-400); RBC 3.16 XMIL (4.2-5.4)
--- NOTE | 2016-08-31 07:00 | PROGRESS NOTE ---
DATE: 08/31/2016 SUBJECTIVE: She states she is feeling well. She has no shortness of breath. Her nausea and vomiting are improved. Swelling has improved dramatically as well. OBJECTIVE: Vital Signs: Blood pressure 172/72, heart rate 65, respirations 16, afebrile. Intake 1 L, output 4.5 L. Physical Examination: General: No acute distress. Skin: Warm and dry. HEENT: Conjunctivae are pink. Neck: Neck veins are not visible. Trachea is midline. Heart: Regular. No murmurs. Lungs: Equal. No crackles. Abdomen: Obese and soft. Bowel sounds are present. Extremities: Have trace edema. No clubbing or cyanosis. Laboratory Data: Pending. IMPRESSION: 1. End-stage kidney disease. She will have dialysis today to get her back on her routine dialysis schedule. 2. Volume status, improved. We will continue to lower the weight today on treatment. 3. Chronic physical debilitation. She has made a decision for usp placement. I support this. We will arrange for her to have her dialysis transferred to the [facility]. cc: Yaya Santamaria MD
[2016-08-31 07:08] LABS: ALBUMIN 3.3 g/dL (3.5-5.0); CALCIUM 8.8 mg/dL (8.8-10.2); POTASSIUM 4.9 mmol/L (3.5-5.1)
[2016-08-31] MEDS ORDERED: NS 2,000 ML ONE (07:11)
[2016-08-31] MEDS ORDERED: HEPARIN ONE (07:11)
[2016-08-31] MEDS: HEPARIN SUBQ SCH (08:25)
[2016-08-31] MEDS: NORVASC PO SCH (08:26)
[2016-08-31] MEDS: AUGMENTIN PO SCH (08:26)
[2016-08-31] MEDS: PROZAC PO SCH (08:26)
[2016-08-31] MEDS: LYRICA PO SCH (08:26)
[2016-08-31] MEDS: COREG PO SCH (08:26)
[2016-08-31] MEDS: MIRALAX PO SCH (08:32)
[2016-08-31 08:40] VITALS: BP 156/61
--- NOTE | 2016-08-31 11:00 | DISCHARGE SUMMARY ---
ADMISSION DATE: 08/28/2016 DISCHARGE DATE: 08/31/2016 ADMISSION DIAGNOSES: 1. Diabetic gastroparesis. 2. Hyperkalemia. 3. End-stage renal disease. 4. Type 2 diabetes. 5. Chronic lower back pain. 6. Accelerated hypertension. DISCHARGE DIAGNOSES: 1. Diabetic gastroparesis. 2. Hyperkalemia. 3. End-stage renal disease. 4. Type 2 diabetes. 5. Chronic lower back pain. 6. Accelerated hypertension. 7. Sinusitis. CONSULTATIONS: Dr. Yaya Santamaria with Nephrology. DIAGNOSTIC PROCEDURES AND FINDINGS: EKG done on 08/26/2016 shows normal sinus rhythm without acute ST-T abnormalities. Chest x-ray on 08/28/2016 shows cardiomegaly with central vascular distention. Abdomen and pelvis CT done on 08/28/2016 shows anasarca, mild hepatic splenomegaly, small periumbilical hernia, uncomplicated colonic diverticulosis, and a 2.6 x 1.7 cm anterior subcutaneous nodule over the left lower quadrant; this is nonspecific, but may represent an injection granuloma. Lumbar spine CT done on 08/28/2016 shows moderate degenerative changes, prior surgery to the lumbar spine, multilevel spinal stenosis due to posterior bone spurs and bulging disk, as well as facet hypertrophy, but no disk herniation identified. Sinus CT done on 08/30/2016 shows mild sinusitis. HOSPITAL COURSE: Mrs. Harley is a 61-year-old female with a history of ESRD, followed by Dr. Santamaria, who presented with persistent nausea and vomiting. Symptoms began at midnight on the day of admission, and she started having nausea and vomiting after breakfast. She could not hold down any food, and she came to the ER for evaluation. She did state that she had an accidental slip and fall, fell on her tailbone a few days prior to admission. She got to the ER. She had a CT of the abdomen and pelvis done, which did not show anything acute. However, lumbar spine CT showed chronic changes, but nothing acute. She was noted to have accelerated hypertension with a systolic blood pressure of 206/92. Her chest x-ray was also consistent with volume overload. She was admitted to the floor with telemetry. She was treated for hyperkalemia in the ER with appropriate medications, and ultimately dialysis. We consulted Dr. Santamaria, who continued her dialysis. We treated the gastroparesis with Reglan, and with time and medications, she improved. She was complaining of some sinus pain, and a sinus CT was done, which showed mild sinusitis, for which we will treat with Augmentin p.o. renally dosed. She has reached maximum medical benefit of inpatient hospitalization, and she is now stable for discharge. She will be going to [facility] in [place]. DISCHARGE MEDICATIONS: 1. Norvasc 5 mg b.i.d. 2. Augmentin 250 mg p.o. every 24 hours for 4 days. 3. Dulcolax 10 mg per rectum at night. 4. Butalbital/acetaminophen 50/325 every 4 hours as needed. 5. Soma 250 mg 3 times a day as needed. 6. Coreg 12.5 mg p.o. b.i.d. 7. Clonidine 0.1 mg b.i.d. as needed. 8. Lotrisone cream topically as directed. 9. Epogen 10,000 units subcutaneously before dialysis. 10. Vitamin D2, 50,000 units every 7 days. 11. Fluoxetine 40 mg daily. 12. Apresoline 50 mg p.o. every 8 hours. 13. Reglan 5 mg p.o. t.i.d. before meals. 14. Zofran 4 mg every 6 hours as needed. 15. Percocet 10 every 4 hours as needed. 16. MiraLAX 17 grams p.o. b.i.d. 17. Lyrica 50 mg daily. 18. Phenergan 25 mg every 6 hours as needed. 19. Ambien 10 mg p.o. at bedtime. DISCHARGE LABORATORY DATA: WBC 5.25, hemoglobin 9.8, hematocrit 30.5, platelet count 118,000. Sodium 138, potassium 4.9, chloride 96, CO2 of 24, anion gap 18, BUN is 52, creatinine 5.2, glucose 125. Phosphorus 7.5. Albumin 3.3. DISCHARGE PHYSICAL EXAMINATION: General: Morbidly obese, elderly female, lying in the hospital bed in no acute distress. Neurologic: The patient is awake, alert, and oriented. She follows commands without focal deficits. HEENT: Head is atraumatic, normocephalic. Pupils equal, round, reactive to light. Oral mucosa is moist. Trachea is midline. Neck is supple. Chest: Clear to auscultation bilaterally. CV: Regular rate and rhythm. S1, S2 is noted. GI: Soft, obese, nondistended, nontender. Extremities: No edema, clubbing, or cyanosis. Pulses are palpable. DISCHARGE DIET: Diabetic. DISCHARGE ACTIVITY: Resume activity as tolerated. DISPOSITION AND OTHER DISCHARGE INSTRUCTIONS: The patient is discharged to [facility] in [place]. She is to continue medications as directed. She is to follow up with Dr. Santamaria, and continue dialysis as directed by him. She is to return to the ER or call 911 for any worsening complaints or concerns. All questions have been answered. DISCHARGE TIME: Greater than 35 minutes. Dictated by WILMER Hand for Sivan Farias MD cc: WILMER Hand MD Reginald D. Gladish, MD
== END 2016-08-31 14:35 ==
LOC: 4N 14:03 → ED 14:03
PROVIDERS: ATTEND Internal Medicine

== ENCOUNTER 2016-09-08 21:28 | Inpatient (IN) ==
[2016-09-08] MEDS ORDERED: ZOFRAN IV PRN (22:20)
[2016-09-08] MEDS ORDERED: DILAUDID IM PRN (22:29)
[2016-09-08] MEDS ORDERED: DILAUDID IV ONE (22:29)
[2016-09-08 23:08] LABS: BASO% 0.1 % (0.0-0.8); HEMATOCRIT 34.4 % (37.0-47.0); HEMOGLOBIN 11.5 g/dL (12.0-16.0); IMM GRAN# 0.02 X1000 (0.0-0.04); IMM GRAN% 0.2 % (0.0-0.5); LYMPH% 6.2 % (20.5-51.1); MANUAL DIFF NEEDED? NO; MCH 31.3 PG (27-31); MCHC 33.4 g/dL (33-37); MCV 93.5 FL (81-99); MONO# 0.25 X1000 (0.11-0.59); MONO% 3.1 % (1.7-9.3); MPV 9.7 FL (7.4-10.4); NEUT% 90.4 % (42.2-75.2); PLT 153 X1000 (130-400); RBC 3.68 XMIL (4.2-5.4)
[2016-09-08] MEDS ORDERED: CATAPRES PO PRN (23:22)
[2016-09-08] MEDS ORDERED: DULCOLAX PR PRN (23:22)
[2016-09-08 23:29] LABS: ALBUMIN 3.5 g/dL (3.5-5.0); CALCIUM 9.5 mg/dL (8.8-10.2); MAGNESIUM 2.2 mg/dL (1.5-2.7); TOTAL BILIRUBIN 0.4 mg/dL (0.20-1.00); TOTAL PROTEIN 5.9 g/dL (6.3-8.3)
[2016-09-08] MEDS ORDERED: EPOGEN SUBQ SCH (23:30)
[2016-09-08 23:31] LABS: POTASSIUM 7.2 mmol/L (3.5-5.1)
[2016-09-08] MEDS ORDERED: D50W SYRINGE IV ONE (23:31)
[2016-09-08] MEDS ORDERED: HUMULIN R IV ONE (23:32)
[2016-09-08] MEDS ORDERED: ALBUTEROL 0.5% INH CONC FOR HYPERKALEMIA INH ONE (23:34)
[2016-09-08] MEDS ORDERED: CALCIUM GLUCONATE 1 GM in NS 50 ML IV ONE (23:35)
[2016-09-08] MEDS: PROTONIX IV SCH (23:48)
[2016-09-08] MEDS: COMPAZINE IV PRN (23:48)
[2016-09-08] MEDS: SODIUM CHLORIDE 0.9% INJ SCH (23:48)
[2016-09-08] MEDS: AMBIEN PO SCH (23:49)
[2016-09-08] MEDS: DILAUDID IV PRN (23:49)
[2016-09-08] MEDS: APRESOLINE PO SCH (23:50)
[2016-09-08] MEDS ORDERED: SODIUM BICARBONATE 8.4% 100 MEQ in STERILE WATER INJ. 1,000 ML IV SCH (23:50)
[2016-09-09] MEDS: FIORICET PO PRN (02:15)
[2016-09-09] MEDS: HUMULIN R IV ONE ×2 (03:50→08:55)
[2016-09-09] MEDS: D50W SYRINGE IV ONE ×2 (03:50→08:56)
[2016-09-09] MEDS ORDERED: HEPARIN SUBQ SCH (05:00)
--- NOTE | 2016-09-09 07:24 | HISTORY AND PHYSICAL ---
PRIMARY CARE PROVIDER: Renny Parmar MD CONDITIONING MACHINE OPERATOR: Yaya Santamaria MD CHIEF COMPLAINT: Nausea and vomiting since 6 a.m. this morning. HISTORY OF PRESENT ILLNESS: Ms. Harley is a 61-year-old, female, who is well known to our service. She was last admitted here on 08/28/2016 for the same complaint. She has a history of end-stage renal disease, on hemodialysis, hypertension, morbid obesity, diabetic gastroparesis, who originally went to [facility] Emergency Room today with complaint of persistent nausea and vomiting. On laboratory data, they found her potassium to be over 7, so they sent her to [facility] for further evaluation and treatment. She will be placed on CICU with STAT laboratory data to be drawn. Dr. Santamaria will be consulted for dialysis in a.m. PAST MEDICAL HISTORY: 1. End-stage renal disease with Sunday, , and Sunday hemodialysis. 2. Situational depression. 3. Hypertension. 4. Diabetes mellitus type 2. 5. Anemia of chronic disease. 6. History of cervical cancer. 7. Constipation. 8. Diabetic gastroparesis. 9. Morbid obesity. 10. Chronic low back pain. 11. Chronic thrombocytopenia previous. SURGICAL HISTORY: 1. Laminectomy. 2. Left Vas-Cath placement. 3. Right wrist fracture. 4. Cholecystectomy. 5. Hysterectomy. 6. Abdominoplasty. 7. Left tibial fracture repair. 8. Bilateral carpal tunnel release. SOCIAL HISTORY: Remote history of tobacco use. Denies alcohol or illicit drug use or abuse. FAMILY HISTORY: Positive for atrial fibrillation, cerebrovascular accident, diabetes, and colon polyps. ALLERGIES: Nubain, Maxzide, and Talwin. HOME MEDICATIONS: 1. MiraLAX 17 g p.o. daily p.r.n. for constipation. 2. Vitamin D2 5000 units oral every 7 days. 3. Reglan 5 mg p.o. t.i.d. before meals. 4. Zofran 4 mg p.o. every 6 p.r.n. nausea. 5. Soma 250 p.o. 3 times a day p.r.n. 6. Epogen 10,000 units subcu before dialysis. 7. Clonidine 0.1 mg p.o. twice a day p.r.n. for systolic blood pressure greater than 170. 8. Phenergan 25 mg p.o. every 6 hours p.r.n. for nausea. 9. Lyrica 50 mg p.o. daily. 10. Percocet 10 one tablet p.o. q.4 hours p.r.n. for pain. 11. Hydralazine 50 mg p.o. every 8 hours. 12. Prozac 40 mg p.o. daily. 13. Coreg 12.5 mg p.o. twice a day. 14. Norvasc 5 mg p.o. twice a day. 15. Ambien 10 mg p.o. at bedtime. REVIEW OF SYSTEMS: Fourteen point review of systems conducted with the patient. Pertinent positives listed above in the history of present illness. All other systems were reviewed and found to be negative. PHYSICAL EXAMINATION: VITAL SIGNS: Temperature 98.6 degrees, pulse 80, respirations 18, blood pressure 183/72, oxygen saturation 99% on room air. GENERAL: Pleasant 61-year-old female, lying in the CICU bed. Has a complaint of pain. Is currently being stuck by laboratory. No acute distress. HEENT: Head is atraumatic, normocephalic. Pupils equal, round, reactive to light. Extraocular eye movement intact. Sclerae is anicteric. Conjunctivae is pink. Oral mucosa is mildly dry. NECK: Supple. No jugular venous distention. No thyromegaly. Trachea is midline. No cervical lymphadenopathy. CARDIAC: Regular rhythm. S1-S2 appreciated. No murmurs, gallops, or rubs. LUNGS: Clear to auscultation bilaterally. No rhonchi, wheezes, or rales. Symmetrical rise and fall of respirations. ABDOMEN: Protuberant, soft, nondistended, nontender. Small subcutaneous mass in the left lower quadrant to palpation. Bowel sounds present in all 4 quadrants. Normoactive. EXTREMITIES: No clubbing, cyanosis, or edema. 2+ pedal pulses bilaterally. NEUROLOGICAL: Alert and oriented x3. Cranial nerves 2-12 are grossly intact. GENITOURINARY: No bladder distention noted. The patient still makes some urine. Usually urinating once a day. LABORATORY DATA: WBC 8.04, hemoglobin 11.5, hematocrit 34.4, platelet count 153 ,000. Sodium 132, potassium 7.2, chloride 90, carbon dioxide 27. BUN 50, creatinine 5.6, glucose 141. ASSESSMENT AND PLAN: 1. Diabetic gastroparesis. She was given Compazine in the emergency room, which apparently worked. We will continue Compazine 4 times a day. We will hold NPO with ice chips at this time. Will alternate Zofran as needed. 2. Hyperkalemia. Given D50 and regular insulin. Potassium returned on arrival to this hospital at 7.2. We will treat with albuterol, D50, calcium gluconate, regular insulin, and sodium bicarbonate drip. Dialysis will ultimately resolved this problem, which will be tomorrow. 3. End-stage renal disease. The patient has hemodialysis Sunday, , and Sunday. Dr. Santamaria has been consulted. 4. Diabetes mellitus type 2. Start patient on sliding scale insulin with low- dose sliding scale. 5. Chronic lower back pain, related to patient's nausea and vomiting. We will give Dilaudid IV at this time, as it metabolizes better in renal patients than morphine. Continue Percocet once nausea and vomiting has subsided. 6. Hypertension. Restart home antihypertensives. 7. Constipation. Continue MiraLAX. 8. Chronic thrombocytopenia. Platelets are 153,000 at this time. Will avoid heparin at any rate. Further recommendation per patient clinical course. Dictated by WILMER Jimenez for Fidelina Steel MD Pt seen and examined by me and discussed case with SENIOR MORTGAGE UNDERWRITER cc: WILMER Jimenez MD Don Beach, MD Reginald D. Gladish, MD MTDD
[2016-09-09 08:28] LABS: BASO% 0.1 % (0.0-0.8); EOS# 0.09 X1000 (0.0-0.7); EOS% 1.2 % (0.0-10.0); HEMATOCRIT 33.5 % (37.0-47.0); HEMOGLOBIN 10.9 g/dL (12.0-16.0); IMM GRAN# 0.03 X1000 (0.0-0.04); IMM GRAN% 0.4 % (0.0-0.5); LYMPH# 0.49 X1000 (1.2-3.4); LYMPH% 6.7 % (20.5-51.1); MANUAL DIFF NEEDED? YES; MCH 30.9 PG (27-31); MCHC 32.5 g/dL (33-37); MCV 94.9 FL (81-99); MONO# 0.28 X1000 (0.11-0.59); MONO% 3.9 % (1.7-9.3); MPV 10.6 FL (7.4-10.4); NEUT% 87.7 % (42.2-75.2); PLT 114 X1000 (130-400); RBC 3.53 XMIL (4.2-5.4)
[2016-09-09 09:22] LABS: CALCIUM 9.5 mg/dL (8.8-10.2)
[2016-09-09] MEDS: COMPAZINE IV PRN ×3 (10:09→22:32)
[2016-09-09] MEDS: DILAUDID IV PRN ×3 (10:09→22:31)
[2016-09-09] MEDS ORDERED: HEPARIN ONE (10:40)
[2016-09-09] MEDS ORDERED: NS 2,000 ML ONE (10:40)
[2016-09-09 11:14] LABS: BANDS 8 % (0-1); HYPOCHROM 1+; LYMPHS 4 % (21-51)
--- NOTE | 2016-09-09 14:08 | CONSULTATION ---
DATE OF CONSULTATION: 09/09/2016 REASON FOR CONSULTATION: Assistance with management. HISTORY OF PRESENT ILLNESS: Ms Harley is a 61-year-old white female with multiple recent admissions with nausea and vomiting related to gastroparesis. She has recently transferred to long-term care at [facility] in [place]. In the last 24 hours she has had uncontrollable nausea and vomiting. Her potassium has also been elevated at dialysis. Because of these findings, she was admitted to the hospital. She is currently on dialysis. PAST MEDICAL HISTORY: As above. She also has a history of cervical cancer. She has thrombocytopenia. Morbid obesity. Hypertension. HOME MEDICATIONS: Reviewed as listed. ALLERGIES: None. SOCIAL HISTORY: As above. FAMILY HISTORY: Noncontributory. REVIEW OF SYSTEMS: Noncontributory. PHYSICAL EXAMINATION: Vital Signs: Blood pressure 147/67, heart rate 72, respirations 16, afebrile. General: She is a chronically ill obese woman, on dialysis. No distress. Skin: Warm and dry. HEENT: Conjunctivae are pink. Pupils are equal. Oropharynx is clear. Heart: Regular. Lungs: Have equal breath sounds. No crackles. Abdomen: Soft, nontender. Bowel sounds present. Extremities: Have no edema, clubbing, or cyanosis. IMPRESSION: 1. Hyperkalemia. Two potassium bath today. Repeat if needed. 2. End-stage renal disease. She will have her full treatment today using her catheter. 3. Intravenous access. Will allow use of the venous port today and ask Dr. Castro for Port-A- Cath next week. cc: Yaya Santamaria MD
--- NOTE | 2016-09-09 14:15 | PROGRESS NOTE ---
DATE: 09/09/2016 SUBJECTIVE: The patient states that she does not feel nauseous this morning and wants to try a full liquid diet. OBJECTIVE: Vital Signs: Temperature is 98.6 degrees, blood pressure 148/67, heart rate 72, respirations 16, O2 saturations 100% on 2 L nasal cannula. General: This is a morbidly obese female lying in bed in no acute distress. Head: Normocephalic, atraumatic. Heart: S1, S2. Normal. Regular rate and rhythm. Lungs: Clear to auscultation bilaterally. No crackles. No rales. Abdomen: Positive bowel sounds. Soft, nontender, nondistended. Extremities: Trace edema. No cyanosis. No calf tenderness. Neuro: The patient is alert and oriented x3. LABS: White blood cell count 7.2, hemoglobin 10, hematocrit 33, platelets 114,000. Sodium 132, potassium 6.7, chloride 91, CO2 25, BUN 63, creatinine 6 , glucose 200. ASSESSMENT AND PLAN: 1. Hyperkalemia. This will be addressed during dialysis today. 2. Diabetic gastroparesis. Improved. Will continue on Compazine and p.r.n. Phenergan. Will start the patient on a full liquid diet today. 3. Uncontrolled diabetes mellitus type 2. Continue on sliding scale insulin. 4. Hypertension. Controlled. Continue on Coreg and Norvasc. 5. Migraine headaches. Continue on p.r.n. Fioricet. 6. Situational depression. Continue on Prozac. 7. End-stage renal disease. The patient is due for dialysis today. 8. Constipation. Continue on MiraLAX. 9. Anemia of chronic disease. The patient's hemoglobin and hematocrit are stable. cc: Sivan Farias MD
[2016-09-09] MEDS: LYRICA PO SCH (16:38)
[2016-09-09] MEDS: PROZAC PO SCH (16:38)
[2016-09-09] MEDS: APRESOLINE PO SCH ×3 (16:38→23:00)
--- NOTE | 2016-09-09 17:09 | Diag Imaging Result Document ---
PROCEDURE NAME: CHEST-PORTABLE - 09/09/2016 PORTABLE UPRIGHT CHEST: COMPARISON: 08/28/2016. FINDINGS: No change in the double lumen left sided catheter. No pneumothorax. The heart remains enlarged. Decreased pulmonary edema. The right hemidiaphragm is elevated. No pleural effusions identified. IMPRESSION: Cardiomegaly.
[2016-09-09] MEDS: COREG PO SCH ×2 (17:43→20:03)
[2016-09-09] MEDS: LOTRISONE CREAM TOP SCH ×2 (17:44→20:03)
[2016-09-09] MEDS: NORVASC PO SCH ×2 (17:44→20:03)
[2016-09-09] MEDS: MIRALAX PO SCH ×2 (17:44→20:03)
[2016-09-09] MEDS: PROTONIX IV SCH (22:31)
[2016-09-09] MEDS: SODIUM CHLORIDE 0.9% INJ SCH (22:31)
[2016-09-09] MEDS: AMBIEN PO SCH (22:32)
[2016-09-10] MEDS: APRESOLINE PO SCH ×4 (01:20→22:25)
[2016-09-10 05:18] LABS: HEMATOCRIT 30.6 % (37.0-47.0); HEMOGLOBIN 9.6 g/dL (12.0-16.0); MCHC 31.4 g/dL (33-37); MCV 98.7 FL (81-99); MPV 9.5 FL (7.4-10.4); RBC 3.1 XMIL (4.2-5.4)
[2016-09-10 05:39] LABS: ALBUMIN 3.1 g/dL (3.5-5.0); CALCIUM 9.1 mg/dL (8.8-10.2); POTASSIUM 5.9 mmol/L (3.5-5.1)
[2016-09-10] MEDS: MIRALAX PO SCH ×2 (08:49→21:02)
[2016-09-10] MEDS: NORVASC PO SCH ×2 (08:49→21:05)
[2016-09-10] MEDS: LOTRISONE CREAM TOP SCH ×2 (08:49→22:25)
[2016-09-10] MEDS: LYRICA PO SCH (08:49)
[2016-09-10] MEDS: COREG PO SCH ×2 (08:49→21:05)
[2016-09-10] MEDS: PROZAC PO SCH (08:49)
[2016-09-10] MEDS: DILAUDID IV PRN ×3 (11:27→21:05)
[2016-09-10] MEDS: COMPAZINE IV PRN ×3 (11:27→22:25)
--- NOTE | 2016-09-10 16:48 | PROGRESS NOTE ---
DATE: 09/10/2016 SUBJECTIVE: The patient denies having any abdominal pain, nausea or vomiting. She states that she is ready to eat solid food. She has not had a bowel movement yet. OBJECTIVE: Vital Signs: Temperature 98 degrees, blood pressure 150/51, heart rate 72 respirations 20, O2 saturations 96% on 2 L nasal cannula. General: This is an elderly female lying in bed in no acute distress. Head: Normocephalic, atraumatic. Heart: S1, S2. Normal. Regular rate and rhythm. Lungs: Clear to auscultation bilaterally. No crackles. No rales. Abdomen: Positive bowel sounds. Soft, nontender, nondistended. Extremities: No edema. No cyanosis. No calf tenderness. Neurologic: The patient is alert oriented x3. LABS: White blood cell count 7.3, hemoglobin 9.6, hematocrit 30, platelets 132, 000. Sodium 134, potassium 5.9, chloride 93, CO2 30, BUN 29, creatinine 4.1, glucose 100, phosphorus 5.5, albumin 3.1. ASSESSMENT AND PLAN: 1. Hyperkalemia. Improved. 2. Diabetic gastroparesis. Improved. Will start the patient on a diabetic diet. Continue on Reglan. 3. End-stage renal disease. Management as per the marina sales and service supervisor. 4. Hypertension. Controlled. 5. Anemia of chronic disease. The patient's hemoglobin and hematocrit are stable. 6. Diabetes mellitus type 2. Stable. Continue on sliding scale insulin. 7. Morbid obesity. Aware. 8. Chronic pain. Continue on p.r.n. pain medication. 9. Constipation. Continue on miralax. Add dulcolax. 10. Deep vein thrombosis prophylaxis. SCDs. cc: Sivan Farias MD [facility]
[2016-09-10] MEDS ORDERED: HEPARIN SUBQ SCH (21:00)
[2016-09-10] MEDS: SODIUM CHLORIDE 0.9% INJ SCH (21:04)
[2016-09-10] MEDS: PROTONIX IV SCH ×2 (21:05→22:43)
[2016-09-10] MEDS: AMBIEN PO SCH (21:05)
[2016-09-11] MEDS: APRESOLINE PO SCH ×4 (00:45→23:18)
[2016-09-11] MEDS: DILAUDID IV PRN ×5 (05:07→23:10)
[2016-09-11] MEDS: COMPAZINE IV PRN ×4 (05:07→23:10)
[2016-09-11 05:28] LABS: HEMATOCRIT 30.3 % (37.0-47.0); HEMOGLOBIN 9.6 g/dL (12.0-16.0); MCH 31.1 PG (27-31); MCHC 31.7 g/dL (33-37); MCV 98.1 FL (81-99); MPV 9.8 FL (7.4-10.4); RBC 3.09 XMIL (4.2-5.4)
[2016-09-11 05:53] LABS: ALBUMIN 3.2 g/dL (3.5-5.0); CALCIUM 8.7 mg/dL (8.8-10.2)
[2016-09-11 05:54] LABS: POTASSIUM 6.4 mmol/L (3.5-5.1)
[2016-09-11] MEDS ORDERED: HUMULIN R IV ONE (06:15)
[2016-09-11] MEDS ORDERED: D50W SYRINGE IV ONE (06:16)
[2016-09-11] MEDS ORDERED: ALBUTEROL 0.5% INH CONC FOR HYPERKALEMIA INH ONE (06:17)
[2016-09-11] MEDS ORDERED: NS 2,000 ML MISC PRN (06:56)
[2016-09-11] MEDS ORDERED: HEPARIN IV PRN (06:56)
[2016-09-11] MEDS ORDERED: TIGHT: 0.2 ML/HR MISC PRN (06:56)
[2016-09-11] MEDS: COREG PO SCH ×2 (08:46→21:23)
[2016-09-11] MEDS: NORVASC PO SCH ×2 (08:46→21:23)
[2016-09-11] MEDS: PROZAC PO SCH (08:47)
[2016-09-11] MEDS: LOTRISONE CREAM TOP SCH ×2 (08:49→21:31)
[2016-09-11] MEDS: LYRICA PO SCH (08:49)
[2016-09-11] MEDS: MIRALAX PO SCH ×2 (08:53→21:22)
[2016-09-11] MEDS ORDERED: NS 2,000 ML ONE (09:17)
[2016-09-11] MEDS ORDERED: HEPARIN ONE (09:17)
--- NOTE | 2016-09-11 12:48 | PROGRESS NOTE ---
DATE: 09/11/2016 SUBJECTIVE: The patient states that she slept well last night. She has no complaints this morning. She denies having any nausea, vomiting or diarrhea. She has not had a bowel movement yet. OBJECTIVE: Vital Signs: Temperature 98, blood pressure 141/70, heart rate 75, respirations 18, O2 saturations 95% on room air. General: This is a morbidly obese female, lying in bed in no acute distress. Head: Normocephalic, atraumatic. Heart: S1, S2. Normal. Regular rate and rhythm. Lungs: Clear to auscultation bilaterally. Abdomen: Positive bowel sounds. Soft, nontender, nondistended. Extremities: Trace pedal edema. No cyanosis. No calf tenderness. Neurologic: The patient is alert and oriented x3. LABS: White blood cell count 4.7, hemoglobin 9.6, hematocrit 30, platelets 122. Sodium 130, potassium 6.4, chloride 92, CO2 of 28, BUN 43 creatinine 5.6, glucose 120, calcium 8.7, phosphorus 6.0. ASSESSMENT AND PLAN: 1. Hyperkalemia. This will be addressed during dialysis today. 2. Diabetic gastroparesis. Stable. 3. Constipation. Will add Senokot to the patient's scheduled laxative regimen. 4. Hypertension. Controlled. 5. End-stage renal disease. The patient is due for dialysis today. 6. Situational depression. Continue on Prozac. 7. Chronic lower back pain. Continue on p.r.n. pain medication. 8. Diabetic neuropathy. Continue on Lyrica. 9. Diabetes mellitus type 2. Continue on sliding scale insulin. 10. Deep vein thrombosis prophylaxis. Continue with sequential compression devices. cc: Sivan Farias MD [facility]
[2016-09-11] MEDS ORDERED: SODIUM CHLORIDE 0.9% 10 ML ONE (14:12)
--- NOTE | 2016-09-11 14:18 | PROGRESS NOTE ---
DATE: 09/11/2016 TIME SEEN: 0710 SUBJECTIVE: Ms. Harley is resting quietly in bed. She denies any chest pain. No increased work of breathing. States she is feeling a little bit better. OBJECTIVE: Her most recent vital signs. Temperature last recorded 98.5, blood pressure 165/82, heart rate 73, respirations are 18. She is on 2 L nasal cannula. Last recorded saturation is 96%. She has had 420 in. She has had 125 out per void with need for dialysis. LABS: This a.m., sodium 130, potassium 6.4, chloride 92, CO2 28, BUN 43, creatinine 5.6, glucose 120. Her anion gap is 10, calcium 8.7, phosphorus 6, albumin 3.2. White count 4.78, hemoglobin 9.6, hematocrit 30.3 with a platelet count of 122,000. PHYSICAL EXAMINATION: General: This is a 61-year-old white female. She is currently resting in bed. She is in no acute distress. Skin: Warm and dry. HEENT: Normocephalic , atraumatic. Conjunctivae pink. She has TU. Mucous membranes moist. Neck: Supple. Trachea midline. No JVD. Cardiovascular: Regular rate and rhythm. She is without gallop. Soft systolic murmur. Lungs: Clear to auscultation anteriorly. Equal excursion. Abdomen: Large, round, soft, nontender. Positive bowel sounds. Genitourinary: Not inspected. Minimal void with dialysis assist. Extremities: Have no edema. No clubbing or cyanosis. Neurological: She is alert and oriented x3. ASSESSMENT AND PLAN: 1. End-stage renal disease. Patient is due for dialysis in the a.m. Unfortunately her potassium remains elevated. We will plan for dialysis today. She is to be placed on a 2 K bath. We will dialyze her for 3-1/2 hours. We will attempt to pull her to her dry weight. 2. Electrolytes. Hyperkalemia and hyponatremia with correction on dialysis. 3. Acidosis. This is stable. 4. Anemia. This is acceptable. 5. Intravenous access. Dr. Muir for Port-A-Cath secondary to patient's frequent hospitalizations and inability for IV access. I would like to thank you for allowing us to follow with this patient. Seen, data reviewed, discussed with Sky Glaser on 09/11/16. I agree with the above assessment and plan of care. rg Dictated by WILMER Thomas for Yaya Santamaria MD cc: WILMER Thomas MD [facility]
--- NOTE | 2016-09-11 20:45 | CONSULTATION ---
DATE OF CONSULTATION: 09/11/2016 HISTORY OF PRESENT ILLNESS: This is a 61-year-old female with end-stage renal disease, dialyzed by left IJ PermCath, who was admitted with nausea and vomiting. This is a recurrent issue related to gastroparesis. She has very poor peripheral access. She has right wrist AV fistula that has a good thrill but has failed to mature and is felt to be too deep for access. She requires multiple sticks to obtain labs and give her medicines and Dr. Santamaria is consulted for MediPort placement for ongoing intravenous access. PAST MEDICAL HISTORY: History of cervical cancer, morbid obesity, hypertension , end-stage renal disease, gastroparesis. PAST SURGICAL HISTORY: She has a left PermCath and a right wrist AV fistula. She had a previous right IJ PermCath that just fell out on its own. SOCIAL HISTORY: Noncontributory. FAMILY HISTORY: Noncontributory. REVIEW OF SYSTEMS: Negative other than what is mentioned in her HPI 10 point. PHYSICAL EXAMINATION: Vital Signs: Temperature is 98.8 degrees, pulse 75, blood pressure 141/57, O2 saturation is 97% on room air. General: She is alert, lying in bed, in no acute distress. HEENT: No scleral icterus. Cervical: No masses. There is a scar on her right neck from previous PermCath, and a left IJ PermCath noted. Cardiovascular Examination: Normal rate. Regular rhythm. Vascular: Right wrist AV fistula has a strong thrill and the hand is well perfused. LABORATORY STUDIES: I reviewed her labs. White count 4, hematocrit 30, potassium down to 5.1, creatinine 5.6. ASSESSMENT AND PLAN: This is a 61-year-old female with multiple medical issues including end- stage renal disease and she has poor peripheral access. She requires frequent IV fluids and lab draws. She has been dialyzed and her potassium is now appropriate. I have discussed risks, benefits, alternatives with her including bleeding, infection, damage to other structures, pneumothorax and she consents to right internal jugular vein Mediport placement. We will plan to go to the operating room on Sunday. It is okay from a surgical standpoint for her to eat but she will need to be NPO Sunday night. cc: Adrian Muir MD [facility]
[2016-09-11] MEDS: PROTONIX IV SCH ×2 (21:22→23:58)
[2016-09-11] MEDS: SODIUM CHLORIDE 0.9% INJ SCH (21:22)
[2016-09-11] MEDS: FIORICET PO PRN (21:23)
[2016-09-11] MEDS: AMBIEN PO SCH (21:23)
[2016-09-11] MEDS: SENOKOT PO SCH (21:23)
[2016-09-12] MEDS: DILAUDID IV PRN ×5 (05:02→22:59)
[2016-09-12] MEDS: COMPAZINE IV PRN ×2 (05:27→11:03)
[2016-09-12 05:36] LABS: HEMATOCRIT 31.5 % (37.0-47.0); MCH 31.1 PG (27-31); MCHC 31.7 g/dL (33-37); MCV 97.8 FL (81-99); MPV 9.4 FL (7.4-10.4); RBC 3.22 XMIL (4.2-5.4)
[2016-09-12 06:01] LABS: CALCIUM 8.9 mg/dL (8.8-10.2); POTASSIUM 5.5 mmol/L (3.5-5.1)
[2016-09-12] MEDS ORDERED: HEPARIN IV PRN (07:29)
[2016-09-12] MEDS ORDERED: TIGHT: 0.2 ML/HR MISC PRN (07:29)
[2016-09-12] MEDS ORDERED: NS 2,000 ML MISC PRN (07:29)
[2016-09-12] MEDS ORDERED: VITAMIN D PO SCH (09:00)
--- NOTE | 2016-09-12 10:09 | PROGRESS NOTE ---
DATE: 09/12/2016 TIME SEEN: 0745. SUBJECTIVE: Ms. Harley is sitting on the side of the bed. She is eating her breakfast. She states that she is feeling much better. She denies chest pain or increased work of breathing. OBJECTIVE: Vital Signs: Her most recent vital signs are temperature 98.4 degrees, blood pressure 180/67, heart rate 74, respirations 12. She is on 2 L nasal cannula. Last recorded saturation 97%. She has had 520 in. She has had 2 L off from dialysis yesterday. Labs: Sodium 138, potassium 5.5, chloride is 99, CO2 30, BUN 26, creatinine 3.9 , glucose 103, anion gap 9, calcium 8.9, phosphorus 4.6, albumin 3. White count 3.6, hemoglobin 10, hematocrit 31.5, with a platelet count of 124,000. Physical Examination: General: This is a 61-year-old, white female. She is resting on the side of the bed. She is in no acute distress. Skin: Warm and dry. HEENT: Normocephalic, atraumatic. Conjunctivae pink. She has TU. Mucous membranes moist. Neck: Supple. Trachea midline. No JVD. Cardiovascular: Regular rate and rhythm without gallop. Soft systolic murmur is evident. Lungs: Clear to auscultation anteriorly. Equal excursion on room air. Abdomen: Large, round, soft, nontender. Positive bowel sounds. Genitourinary: Not inspected. Minimal void with dialysis assist. Extremities: No edema. No clubbing or cyanosis. Neurological: Alert and oriented x3. ASSESSMENT AND PLAN: 1. End-stage renal disease. Today is patient's routine dialysis day. Her potassium is on the modestly high side. We will go ahead and do her routine dialysis treatment today on a 2 K bath. We will dialyze for 3.5 hours. We will attempt to pull her to her last inpatient dry weight. 2. Electrolytes and acid-base balance. These are stable with correction on dialysis. 3. Acidosis. This is stable. 4. Anemia. This remains stable. 5. Intravenous access with planned port placement per Dr. Muir tomorrow morning. I would to thank you for allowing us to follow with this patient. Seen, data reviewed, discussed with Sky Glaser on 09/12/16. I agree with the above assessment and plan of care. rg Dictated by WILMER Thomas for Yaya Santamaria MD cc: WILMER Thomas MD [facility]
[2016-09-12] MEDS: LOTRISONE CREAM TOP SCH ×2 (10:49→20:26)
[2016-09-12] MEDS: PROZAC PO SCH (11:02)
[2016-09-12] MEDS: COREG PO SCH ×2 (11:02→20:00)
[2016-09-12] MEDS: MIRALAX PO SCH ×2 (11:03→20:00)
[2016-09-12] MEDS: NORVASC PO SCH ×2 (11:03→20:00)
[2016-09-12] MEDS: APRESOLINE PO SCH ×3 (11:03→23:00)
[2016-09-12] MEDS: SENOKOT PO SCH ×2 (11:03→20:00)
[2016-09-12] MEDS: LYRICA PO SCH (11:03)
[2016-09-12] MEDS: LACTULOSE PO SCH ×3 (11:04→20:04)
[2016-09-12] MEDS ORDERED: DEBROX OTIC DROPS OTIC ONE (17:28)
--- NOTE | 2016-09-12 17:46 | PROGRESS NOTE ---
DATE: 09/12/2016 SUBJECTIVE: The patient just returned from dialysis. She does complain of fullness in her left ear and states that her hearing is muffled. OBJECTIVE: Vital Signs: Temperature 98 degrees, blood pressure 171/64, heart rate 73, respirations 14, O2 saturations 98% on room air. General: This is an obese female, sitting at the edge of the bed in no acute distress. Head: Normocephalic, atraumatic. Ear: wax in left ear canal. Heart:S1, S2. Normal. Regular rate and rhythm. Lungs: Clear to auscultation bilaterally. Abdomen: Positive bowel sounds. Soft, nontender, nondistended. Extremities: No edema. No cyanosis. No calf tenderness. Neurologic: The patient is alert and oriented x2. LABORATORY: White blood cell count 3.6, hemoglobin 10, hematocrit 31, platelets 124,000. Sodium 138, potassium 5.5, chloride 99, CO2 30, BUN 26, creatinine 3.9, glucose 103, albumin 3. ASSESSMENT AND PLAN: 1. Hyperkalemia. Improved. 2. Volume overload. This was addressed during dialysis today. 3. Hypertension. Continue on the current antihypertensive therapy. 4. Diabetes mellitus type 2. Continue on sliding scale insulin. 5. Diabetic gastroparesis. Stable. 6. Morbid obesity. Aware. 7. Chronic back pain. Continue on p.r.n. pain medication. 8. Constipation. Continue on scheduled laxatives. We will abdomen Movantik. 9. Vitamin D deficiency. Continue on vitamin D replacement. 10. Ear wax in left ear. Will order debrox to be instilled into left ear. 11. Disposition. The patient should be stable for discharge tomorrow once she has her central venous access placed. cc: [facility]
[2016-09-12] MEDS: AMBIEN PO SCH (20:00)
[2016-09-12] MEDS: PROTONIX IV SCH (22:59)
[2016-09-13] MEDS: COMPAZINE IV PRN ×2 (01:54→14:54)
[2016-09-13] MEDS: DILAUDID IV PRN ×5 (03:00→23:03)
[2016-09-13 05:03] LABS: HEMATOCRIT 32.3 % (37.0-47.0); HEMOGLOBIN 10.3 g/dL (12.0-16.0); MCH 30.7 PG (27-31); MCHC 31.9 g/dL (33-37); MCV 96.4 FL (81-99); MPV 9.3 FL (7.4-10.4); RBC 3.35 XMIL (4.2-5.4)
[2016-09-13 05:16] LABS: ALBUMIN 3.3 g/dL (3.5-5.0); POTASSIUM 5.2 mmol/L (3.5-5.1)
[2016-09-13] MEDS: MOVANTIK PO SCH (06:06)
[2016-09-13] MEDS: APRESOLINE PO SCH ×2 (08:54→15:07)
[2016-09-13] MEDS: PROZAC PO SCH (08:54)
[2016-09-13] MEDS: LYRICA PO SCH (08:54)
[2016-09-13] MEDS: COREG PO SCH ×2 (08:54→20:12)
[2016-09-13] MEDS: NORVASC PO SCH ×2 (08:54→20:12)
[2016-09-13] MEDS: SENOKOT PO SCH ×2 (08:54→20:12)
--- NOTE | 2016-09-13 09:00 | PROGRESS NOTE ---
DATE: 09/13/2016 TIME SEEN: 0730 hours. SUBJECTIVE: Ms. Harley is resting quietly in bed. She denies any chest pain. No increased work of breathing. She is n.p.o. for a procedure for a port placement today. OBJECTIVE: Her most recent vital signs, her temperature is 97.5 degrees, blood pressure 190/79, heart rate 77, respirations 20. She is on room air, last recorded saturation 96 %. She has had 940 input and 1700 output with 1.5 liters on dialysis yesterday. LABORATORY DATA: Her labs this a.m., sodium 137, potassium 5.2, chloride 97, CO2 of 30, BUN 29, creatinine 4.2, glucose 119. Her anion gap is 8, calcium 9, phosphorus 5.1, albumin 3.3. White count 4.73, hemoglobin 10.3, hematocrit 32.3, with a platelet count of 105,000. PHYSICAL EXAMINATION: General: This is a 61-year-old white female. She is resting in bed. She is in no acute distress. Skin: Warm and dry. HEENT: Normocephalic, atraumatic. Conjunctivae pink. She has TU. Mucous membranes are dry. Neck: Supple. Trachea midline. No JVD. Cardiovascular: Regular rate and rhythm. She is without murmur or gallop. Lungs: Clear to auscultation anterior, equal excursion on room air. Abdomen: Large, round, soft, nontender. Positive bowel sounds. Genitourinary: Not inspected. Minimal void with dialysis assist. Extremities: No edema. No clubbing or cyanosis. Neurological: She is alert and oriented x3 today. ASSESSMENT AND PLAN: 1. End-stage renal disease. The patient is due for her routine dialysis treatment in the morning. No indications for intervention today. 2. Electrolytes, acid-base balance, and anemia. These currently remain stable. No need for intervention. 3. Intravenous access per Dr. Muir, planned for this morning. I would like to thank you for allowing us to follow with this patient. Seen, data reviewed, discussed with Sky Glaser on 09/13/16. I agree with the above assessment and plan of care. rg Dictated by WILMER Thomas for Yaya Santamaria MD cc: WILMER Thomas MD [facility]
--- NOTE | 2016-09-13 10:49 | PROGRESS NOTE ---
DATE: 09/13/2016 SUBJECTIVE: Feels well, ready for port today. OBJECTIVE: No events. Vital Signs: Temperature is 97.5, pulse 77, blood pressure 190/79, O2 saturation 96% on room air. White count 4, creatinine is 4.2, potassium 5.2, glucose 125. ASSESSMENT/PLAN: This 61-year-old white female with poor peripheral access, end-stage renal disease. Dr. Santamaria requested Mediport placement, given her complicated nature and the recurrent hospitalizations for IV fluids that she has and antiemetics. We discussed risks, benefits, alternatives including bleeding, infection, pneumothorax, and damage to other structures, and the possibility that we are unable to successfully place a port given her previous access, but will go to the operating room today for right internal jugular subclavian vein Mediport placement. cc: Adrian Muir MD
[2016-09-13] MEDS ORDERED: KEFZOL 1 GM/D5W 1 GM/50 ML IVPB ONE (10:54)
[2016-09-13] MEDS ORDERED: NS 250 ML ONE (11:51)
[2016-09-13] MEDS ORDERED: HEPARIN ONE (11:51)
[2016-09-13] MEDS ORDERED: XYLOCAINE 1%/EPI 1:100,000 ONE (11:51)
[2016-09-13] MEDS ORDERED: KEFZOL ONE (11:51)
[2016-09-13] MEDS: MORPHINE ONE ×4 (13:09→13:46)
[2016-09-13] MEDS ORDERED: FENTANYL ONE (13:13)
[2016-09-13] MEDS ORDERED: DIPRIVAN 1% ONE (13:14)
[2016-09-13] MEDS ORDERED: VERSED ONE (13:14)
--- NOTE | 2016-09-13 14:01 | Diag Imaging Result Doc PS360 ---
EXAM: CHEST-PORTABLE HISTORY: PORT PLACEMENT COMMENT: There is a Port-A-Cath on the right which was not present on 09/09/2016. There is no evidence of pneumothorax. The catheter tip is in the superior vena cava. There are no abnormal fluid collections. The heart size is slightly enlarged and the inspiration is suboptimal. Otherwise compared to the previous study there has been no significant change. IMPRESSION: No evidence of acute disease. Electronically signed by Pedro Luis De La Fuente 09/13/2016 1:58 PM
[2016-09-13] MEDS ORDERED: PIGGYBACK SET 7393 ONE (14:36)
[2016-09-13] MEDS ORDERED: NS 500 ML ONE (14:36)
[2016-09-13] MEDS ORDERED: XYLOCAINE-MPF 2% ONE (14:36)
[2016-09-13] MEDS ORDERED: EXTENSION SET 32 IN 4522 ONE (14:36)
[2016-09-13] MEDS: MIRALAX PO SCH ×2 (15:07→20:12)
[2016-09-13] MEDS: LACTULOSE PO SCH ×2 (16:09→20:16)
[2016-09-13] MEDS: LOTRISONE CREAM TOP SCH ×2 (16:10→20:16)
--- NOTE | 2016-09-13 17:09 | OPERATIVE NOTE ---
PROCEDURE DATE: 09/13/2016 PREOPERATIVE DIAGNOSES: 1. End-stage renal disease. 2. Poor peripheral access. POSTOPERATIVE DIAGNOSES: 1. End-stage renal disease. 2. Poor peripheral access. PROCEDURE PERFORMED: 1. Right subclavian vein Mediport placement. 2. Ultrasound of the right neck. 3. Fluoroscopy less than 1 hour. ESTIMATED BLOOD LOSS: 5 mL. SPECIMENS: None. ANESTHESIA: MAC. INDICATIONS: This is a 61-year-old female with longstanding chronic kidney disease who is now on dialysis. She has very poor peripheral access and requires frequent admissions for gastroparesis for hydration and antiemetics and requires multiple sticks. Each admission obtained small IVs and even they have had to result in accessing her PermCath. Mediport is indicated for peripheral access. OPERATIVE FINDINGS: 1. Ultrasound examination of the right neck where she previously had a PermCath in the past showed a chronically occluded internal jugular vein. She had some prominent collaterals throughout the anterior jugular system and laterally but there was no internal jugular vein on the right and she had a previous line on the left. As such, we performed a subclavian line. 2. Fluoroscopy of the exam showed no postoperative complication. No kink in the catheter along its course with good position in the superior vena cava-atrial junction. OPERATIVE NOTE: Risks, benefits, alternatives discussed with the patient and she consented to the procedures. She was seen in the preoperative area and surgery to be performed was confirmed. She was taken to the operating room, placed supine position. Monitored intravenous anesthesia was administered. Her right neck was prepped with Betadine solution and draped in the usual fashion. A time-out was performed. A focused ultrasound of the right neck with above findings. As such, we elected to proceed with a subclavian line. We made an incision 2 fingerbreadths below the clavicle. Using a pink introducer needle we were able to access subclavian vein using anatomic landmarks. Dark, nonpulsatile venous blood returned. Wire threaded easily and was confirmed to be in the right side of the heart with fluoroscopy. At this point, we measured the catheter over the wire and marked the anticipated length. We then used and a peel-away dilator introducer sheath using Seldinger technique. We positioned this dilating in the tract and placed the introducer in the superior vena cava. Advanced the catheter until it was in good position. We confirmed this with fluoroscopy. Trimmed the catheter after removing the peel- away sheath and the wire and connected it to the port with a [employer] director device. We secured the port with prolene suture in the pouch and confirmed that it did withdraw blood and flushed without difficulty. There was good position of the distal tip of the catheter. We will close the dermis with interrupted 3-0 Vicryl sutures. Skin was closed 4-0 Monocryl. We then again accessed the port with the Mason needle with heparinized saline, blood withdrew and flushed without resistance. Final fluoroscopic image showed no pneumothorax, no kink in the catheter along its course, and good position of the tip of the catheter. She tolerated it well. Counts were correct. She went to the PACU. There is no family available. cc: Adrian Muir MD MTDD
[2016-09-13] MEDS ORDERED: DULCOLAX PR ONE (20:52)
[2016-09-13] MEDS: AMBIEN PO SCH (23:02)
[2016-09-13] MEDS: PROTONIX IV SCH (23:03)
[2016-09-14] MEDS: APRESOLINE PO SCH ×2 (00:57→08:29)
[2016-09-14] MEDS: DILAUDID IV PRN ×3 (03:12→13:11)
[2016-09-14] MEDS: COMPAZINE IV PRN ×2 (03:56→13:11)
[2016-09-14] MEDS: MOVANTIK PO SCH (06:01)
[2016-09-14] MEDS ORDERED: NS 2,000 ML MISC PRN (07:19)
--- NOTE | 2016-09-14 07:38 | DISCHARGE SUMMARY ---
ADMISSION DATE: 09/08/2016 DISCHARGE DATE: 09/13/2016 FINAL DISCHARGE DIAGNOSES: 1. Severe hyperkalemia. 2. Diabetic gastroparesis. 3. Volume overload. 4. End-stage renal. 5. Hypertension. 6. Diabetes mellitus type 2. 7. Chronic constipation. 8. Morbid obesity. 9. Chronic back pain. 10. Vitamin D deficiency. 11. Anemia of chronic disease. CONSULTATIONS REQUESTED DURING THIS HOSPITAL STAY: 1. Nephrology consultation with Dr. Santamaria. 2. General surgery consultation with Dr. Muir. PROCEDURES AND FINDINGS DURING THIS HOSPITAL STAY: Port-A-Cath placement. HOSPITAL COURSE: Ms. Harley is a 61-year-old female with a history of multiple medical problems who initially presented to the ER with persistent nausea and vomiting. Upon arrival to the ER, the patient was noted to have a potassium of 7.2. The patient was admitted to the hospitalist's service and nephrology was consulted to the patient's hemodialysis. The patient was also noted to be volume overloaded. After dialysis, the patient's potassium improved. The patient was dialyzed several days over the course of her hospital stay with stated improvement in her potassium levels. The patient 's nausea and vomiting had resolved after 12 hours in the hospital. Due to access issues, general surgery was consulted for placement of a Port-A-Cath for easier IV access for the patient. The patient continued to improve clinically and at this time was stable for discharge to [facility]. DISCHARGE MEDICATIONS: 1. Lactulose 30 mL oral twice a day. 2. Movantik 12.5 mg p.o. before breakfast daily. 3. Vitamin D2 50,000 units oral every 7 days. 4. Soma 250 mg p.o. 3 times a day p.r.n. for muscle spasms. 5. Lyrica 50 mg p.o. daily. 6. Prozac 40 mg p.o. daily. 7. Reglan 5 mg p.o. 3 times a day before meals. 8. Ambien 10 mg p.o. at bedtime. 9. Norvasc 5 mg p.o. twice a day. 10. Percocet 10/325 one tablet oral every 4 hours p.r.n. for pain. 11. Phenergan 25 mg p.o. every 6 hours p.r.n. for nausea. 12. Zofran 4 mg p.o. every 6 hours p.r.n. 13. Fioricet 1 tablet oral every 4 hours p.r.n. for migraines. 14. Clonidine 0.1 mg p.o. twice a day p.r.n. for systolic blood pressure greater than 170. 15. Epogen 10,000 units subcutaneous before dialysis. 16. Coreg 12.5 mg p.o. twice a day. 17. Hydralazine 50 mg p.o. every 8 hours. 18. Dulcolax 10 mg per rectum at bedtime p.r.n. for constipation. 19. MiraLAX 17 g p.o. twice a day. DISCHARGE DIET: An 1800, ADA diet. ACTIVITY: As tolerated. FOLLOWUP INSTRUCTIONS: The patient will need to follow up for her dialysis sessions as scheduled. cc: Sivan Farias MD
[2016-09-14] MEDS: MIRALAX PO SCH (08:28)
[2016-09-14] MEDS: LYRICA PO SCH (08:29)
[2016-09-14] MEDS: SENOKOT PO SCH (08:29)
[2016-09-14] MEDS: PROZAC PO SCH (08:29)
[2016-09-14] MEDS: NORVASC PO SCH (08:29)
[2016-09-14] MEDS: COREG PO SCH (08:29)
[2016-09-14] MEDS ORDERED: NS 2,000 ML ONE (08:30)
[2016-09-14] MEDS ORDERED: HEPARIN ONE (08:30)
[2016-09-14] MEDS: LOTRISONE CREAM TOP SCH (08:32)
[2016-09-14] MEDS: LACTULOSE PO SCH (08:32)
[2016-09-14 09:11] LABS: ALBUMIN 3.3 g/dL (3.5-5.0); CALCIUM 9.2 mg/dL (8.8-10.2); POTASSIUM 5.5 mmol/L (3.5-5.1)
--- NOTE | 2016-09-14 11:29 | PROGRESS NOTE ---
DATE: 09/14/2016 TIME SEEN: 0830. SUBJECTIVE: Ms. Harley is resting quietly in bed. She states that her chest hurts where she has an incision from a port placement yesterday. Otherwise she denies chest pain or increased work of breathing. OBJECTIVE: Vital Signs: Temperature 97.5 degrees, blood pressure 146/56, heart rate 73, respirations 18. She is on room air. Last recorded saturation 96%. She has had 1110 in. She has only had 5 mL out per void. Labs: Sodium 134, potassium 5.5, chloride 94 , CO2 27, BUN 47, creatinine 5.5, glucose 150. Her anion gap is 13, calcium 9.2, phosphorus 6.8, albumin 3.3. Previous hemoglobin of 10.3 on the . PHYSICAL EXAMINATION: General: This is a 61-year-old white female. She is resting quietly in bed. She is in no acute distress. Skin: Warm and dry. HEENT: Normocephalic , atraumatic. Conjunctivae pink. She has TU. Mucous membranes moist. Neck: Supple. Trachea midline. No JVD. Cardiovascular: Regular rate and rhythm. She has a soft systolic murmur. No gallop appreciated. Lungs: Clear to auscultation anteriorly. Equal excursion. On room air. Abdomen: Large, round, soft, nontender. Positive bowel sounds. Genitourinary: Not inspected. Minimal void with dialysis assist. Extremities: Have no edema. No clubbing or cyanosis. Neurological: She is alert and oriented x3. ASSESSMENT AND PLAN: 1. End-stage renal disease. Patient is due for her routine dialysis treatment today. We will place her on a 2 K bath. She is to dialyze 3.5 hours. We will attempt to challenge patient's dry weight and set this new weight to the outpatient clinic for discharge. 2. Electrolytes and acid-base balance. These are stable. 3. Anemia. This remains stable. 4. Weakness with hyperkalemia. This has been corrected. I would like to thank you for allowing us to follow with this patient. Data reviewed, discussed with Sky Glaser on 09/14/16. I agree with the above assessment and plan of care. rg Dictated by WILMER Thomas for Yaya Santamaria MD cc: WILMER Thomas MD MTDD
[2016-09-14 13:10] VITALS: BP 142/61
--- NOTE | 2016-09-15 04:49 | DISCHARGE SUMMARY ---
ADMISSION DATE: 09/08/2016 DISCHARGE DATE: 09/14/2016 ADDENDUM The patient was seen and examined this morning. She is due to her routine dialysis today. Afterwards the patient will be stable for discharge to the snf. cc: Sivan Farias MD
== END 2016-09-14 15:20 ==
LOC: 3S 21:28 → SUATTDRO 21:28
PROVIDERS: ATTEND Internal Medicine

== ENCOUNTER 2016-09-28 10:47 | Inpatient (IN) ==
[2016-09-28] MEDS ORDERED: MORPHINE IV ONE ×2 (11:32→19:57)
[2016-09-28] MEDS ORDERED: COMPAZINE IV ONE (11:32)
--- NOTE | 2016-09-28 11:37 | PROVIDER DOCUMENTATION ---
HPI-General Adult - General Chief Complaint: Abnormal Lab[s] Stated Complaint: n/v Time Seen by Provider: 09/28/16 11:30 Source: patient, EMS Allergies/Adverse Reactions: Patient Allergies Allergy/AdvReac Type Severity Reaction Status Date / Time pentazocine lactate * Allergy Severe ANAPHYLAXIS Verified 09/28/16 11:55 [From Talwin] triamterene [From Maxzide] Allergy Unknown chest pain Verified 09/28/16 11:55 nalbuphine HCl * AdvReac Intermediate NAUSEA/VOMI Verified 09/28/16 11:55 [From Nubain] TING Home Medications: Home Medication List Medication Instructions Recorded Confirmed Last Taken Type Ergocalciferol (Vitamin D2) 50,000 unit PO Q7D #10 capsule 08/25/15 09/28/16 2 Weeks Ago Rx [Vitamin D] 99560 Carisoprodol [Soma] 250 mg PO TID PRN 02/03/16 09/28/16 08/25/16 History Fluoxetine HCl [Prozac] 40 mg PO DAILY 04/03/16 09/28/16 09/07/16 History Pregabalin [Lyrica] 50 mg PO DAILY 04/03/16 09/28/16 09/07/16 History Metoclopramide [Reglan] 5 mg PO TID AC #90 tablet 05/26/16 09/28/16 09/07/16 Rx Zolpidem [Ambien] 10 mg PO QHS #15 tablet 05/26/16 09/28/16 09/07/16 Rx Amlodipine [Norvasc] 5 mg PO BID #60 tablet 05/29/16 09/28/16 09/07/16 Rx Clotrimazole/Bmethasone Cream 1 applic TOP BID #2 tube 05/29/16 09/28/16 Rx [Lotrisone Cream] Oxycodone/APAP 10 mg/325 mg 1 each PO Q4H PRN PRN #30 tablet 05/29/16 09/28/16 09/07/16 Rx [Percocet-10] Promethazine [Phenergan] 25 mg PO Q6H PRN PRN #5 tablet 05/29/16 09/28/16 Rx Butalbital/Acetaminophen 1 each PO Q4H PRN PRN 07/30/16 09/28/16 3 Days Ago History [Butalbital-Acetaminophn 50-325] Clonidine HCl 0.1 mg PO BID PRN PRN 07/30/16 09/28/16 09/07/16 History Epoetin Mason [Epogen] 10,000 unit SUBQ BEFORE DIALYSIS 07/30/16 09/28/16 History Carvedilol [Coreg] 12.5 mg PO BID #60 tablet 08/03/16 09/28/16 09/07/16 Rx Hydralazine [Apresoline] 50 mg PO Q8H #90 tablet 08/03/16 09/28/16 09/07/16 Rx Polyethylene Glycol 3350 [Miralax] 17 gm PO BID #5 08/31/16 09/28/16 09/07/16 Rx Bisacodyl [Dulcolax] 10 mg [place] QHS PRN 09/08/16 09/28/16 Unknown History Lactulose 30 ml PO BID udc 09/13/16 09/28/16 Unknown Rx Naloxegol Oxalate [Movantik] 12.5 mg PO ACB tablet 09/13/16 09/28/16 Unknown Rx - History of Present Illness -Gen Adult Nature of Presenting Problems: 61 yof from [facility] in [place] sent for elevated potssium levels. Pt c/o nausea and vomiting here. Pt has a hx of renal failure currentlydoing dialysis 3 days a week. Had dialysis yesterday. Location of Pain/Injury: reports: generalized (Chronic pain) Pain Radiation: reports: no radiation Quality of Pain: reports: aching Severity: reports: moderate Timing: reports: still present Context/Activities at Onset: reports: none Modifying Factors: improves with: nothing Associated Symptoms: reports: nausea Similar Symptoms Previously?: No Recently seen or treated by another doctor?: Yes Review of Systems - Adult - REVIEW OF SYSTEMS - ADULT Constitutional: reports: see HPI Eyes: reports: no symptoms reported Ears, Nose, Mouth & Throat: reports: no symptoms reported Cardiovascular: reports: no symptoms reported Respiratory: reports: no symptoms reported Gastrointestinal: reports: see HPI, nausea, vomiting Genitourinary: reports: no symptoms reported Musculoskeletal: reports: no symptoms reported Integumentary: reports: no symptoms reported Neurological: reports: no symptoms reported Psychiatric: reports: no symptoms reported Endocrine: reports: no symptoms reported Hematologic/Lymphatic: reports: no symptoms reported Allergic/Immunologic: reports: no symptoms reported All Other Systems: Reviewed and Negative Past History - Adult - PAST MEDICAL HISTORY-ADULT Review of Records: reports: Old Records Reviewed, Nursing Assessment Review, Medications Reviewed, Social history reviewed & non-contributory. Major Childhood Illnesses: reports: denies history Cardiovascular: reports: HTN, murmur Respiratory: reports: asthma Gastrointestinal: reports: GERD Obstetrical/Gynecological: reports: other (cervical cancer single) Genitourinary: reports: dialysis (T/Thr/Sat), ESRD, kidney disease Musculoskeletal: reports: arthritis, chronic pain (back), fibromyalgia Neurological: reports: headaches/migraines, other (idiopathic neuralgia ) Endocrine/Immune: reports: Diabetes Other Conditions: reports: cataract/glaucoma - PRIOR SURGERIES/PROCEDURES Surgical/Procedure History: reports: hysterectomy, indwelling device, tonsillectomy, other (abdominoplasty/carpal tunnel/ r port chest) - PRIOR HOSPITALIZATIONS Prior Hospitalizations: reports: for similar symptoms - IMMUNIZATION STATUS Childhood Immunizations: See Nurse Assessment Flu Vaccine: See Nurse Assessment - FAMILY HISTORY Family History: reviewed, not pertinent Physical Exam-General - PHYSICAL EXAM-ADULT Initial Vital Signs Reviewed: Yes - CONSTITUTIONAL General Appearance: alert, no apparent distress - EYES Eyes: PERRL/EOMI, pink conjunctivae - HEAD, EARS, NOSE, MOUTH & THROAT HENMT: normocephalic/atraumatic, moist mucous membranes, normal ENT inspection - NECK Neck: non-tender, full range of motion, supple, normal inspection - RESPIRATORY Respiratory: chest non-tender, lungs clear, normal breath sounds, no pleuratic chest pain, no respiratory distress, no accessory muscle use - CARDIOVASCULAR Cardiovascular: normal peripheral pulses, regular rate, rhythm - GASTROINTESTINAL (ABDOMEN) Abdominal Exam: normal bowel sounds, non tender, soft, no organomegaly, no pulsatile mass. negative: spleenomegaly, McBurney's point tenderness, Araujo's sign, obturator sign, prominent aortic pulsations, psoas, Rovsing's sign - LYMPHATIC Lymphatic: no adenopathy - MUSCULOSKELETAL Back Exam: normal inspection, no CVA tenderness Extremity: normal range of motion, non-tender, normal gait, pedal edema (Lower extremity swelling.) Peripheral Pulses: radial (R): 2+, radial (L): 2+, dorsalis-pedis (R): 2+, dorsalis-pedis (L): 2+ - SKIN Integumentary: normal color, normal turgor, warm/dry, other (Left Subclavian vas cath in place for dialysis) - NEUROLOGIC Neurologic: grossly normal, no motor/sensory deficits - PSYCHIATRIC Psych/Mental Status: normal mood/affect, normal thought content, normal thought process, oriented x 3 Progress - PLAN OF CARE/RESULTS Progress/Plan/Lab Results: Orders Category Date Time Status Saline Loc NOW Care 09/28/16 11:32 Ordered CBC WITH ELECTRONIC DIFF [HEME] Stat Lab 09/28/16 11:32 Uncollected CMP [COMPREHENSIVE METABOLIC PANEL] [CHEM] Stat Lab 09/28/16 11:32 Uncollected Morphine Med 09/28/16 11:32 Once 4 mg IV NOW ONE Prochlorperazine [Compazine] Med 09/28/16 11:32 Once 10 mg IV NOW ONE EKG [EKG] Stat Ther 09/28/16 10:56 Ordered - CONSULTS/PCP/HOSPITALIST Notification Time Discussed: 13:00 Consult Disposition: Admit, other ([id number] Will send patient to Dialysis at this time. Hina called hospitalist himself to have patient admitted.) Departure - Departure Date of Disposition Decision: 09/28/16 Time of Disposition Decision: 14:18 DIAGNOSIS: CRF (chronic renal failure), Hyperkalemia Disposition: ADMITTED INPATIENT 09 Certified Medical Emergency: Emergent Condition: Stable - Critical Care Note This patient required my direct & personal management of CC.: No Attestation - Physician/ JOE Attestation Patient care was provided by Advanced Practice Provider:: Yes Advanced Practice Provider:: Angel Cooper Advanced Practice Provider documentation review:: The Mid-level provider documentation, treatment plan and medical decision making was reviewed by the physician who agrees with all treatment and medical decision making by the MLP.
--- NOTE | 2016-09-28 12:34 | ED EKG INTERP ---
This chart was entered by Mynor Groves Scribe, acting as scribe for Da Miller MD. EKG Interpretation - EKG Time of EKG reading by physician:: 10:57 EKG Read and Signed by:: Da Miller EKG Interpretation (*Must complete 3 of following elements*): Abnormal Rate: 80 Rhythm: NSR [place]: normal QRS: LVH MD Interval: normal ST Wave: normal This chart was documented by the indicated scribe, (Mynor Groves Scribe) and accurately reflects the services I performed and decisions made by me, Da Miller MD, as attested by the provider's signature.
--- NOTE | 2016-09-28 12:51 | EKG Report ---
Test Performed on : 09/28/2016 10:57:54 AM Test Reason : abnormal labs Blood Pressure : / mmHG Vent. Rate : 080 BPM Atrial Rate : 080 BPM P-R Int : 170 ms QRS Dur : 094 ms QT Int : 396 ms P-R-T Axes : 048 -21 045 degrees QTc Int : 456 ms Normal sinus rhythm. Moderate voltage criteria for LVH, may be normal variant Borderline ECG When compared with ECG of 28-AUG-2016 18:23, No significant change was found Unconfirmed Result
[2016-09-28] MEDS ORDERED: COMPAZINE IM ONE (13:07)
[2016-09-28] MEDS ORDERED: MORPHINE IM ONE (13:08)
--- NOTE | 2016-09-28 14:48 | PROGRESS NOTE ---
DATE: 09/28/2016 SUBJECTIVE: She is currently on hemodialysis. Tolerating well. No nausea, vomiting, currently. No shortness of breath. OBJECTIVE: Vital Signs: Blood pressure 184/83, heart rate 80, afebrile. Generally: She is in no distress. Skin: Warm and dry. Heart: Regular. Lungs: Clear. Abdomen: Soft, nontender. Extremities: Have minimal edema. PLAN: Continue hemodialysis with a 2 potassium bath and a goal of 2 L ultrafiltration. No other changes. cc: Yaya Santamaria MD
[2016-09-28] MEDS ORDERED: LABETALOL IV PRN (14:50)
[2016-09-28] MEDS ORDERED: CATAPRES PO PRN (14:51)
[2016-09-28] MEDS ORDERED: BUPAP PO PRN (14:51)
[2016-09-28] MEDS ORDERED: SOMA PO PRN (14:51)
[2016-09-28] MEDS ORDERED: DULCOLAX PR PRN (14:51)
[2016-09-28] MEDS ORDERED: EPOGEN SUBQ SCH (15:00)
[2016-09-28] MEDS ORDERED: VITAMIN D PO SCH (15:00)
--- NOTE | 2016-09-28 15:21 | CONSULTATION ---
DATE OF CONSULTATION: 09/28/2016 REASON FOR CONSULTATION: Assistance with management. HISTORY OF PRESENT ILLNESS: Ms. Harley is a 61-year-old white female who is well known to us. She has diabetes, hypertension, obesity, ESRD, heart disease. She has chronic problems with gastroparesis and frequent readmissions with nausea and vomiting. Her most recent discharge was on 09/14/2016. She currently resides in halfway facility in [place] because of her inability to provide self-care and her generalized weakness etc. She presented to the emergency room this morning because she again began having nausea and vomiting last evening and this was rather uncontrollable and she was unable to keep her antihypertensive medication down. Consequently she had rising blood pressure. These 2 problems that were not resolving she sought attention in the emergency room. The ER had some concern about her potassium that was drawn on the .. They were under the impression that she had come here for those abnormal labs. Otherwise she has no chills, fever, sweats, night sweats. No cough, sputum, shortness of breath. No diarrhea. Minimal swelling. PAST MEDICAL HISTORY: As above. HOME MEDICATIONS INCLUDE: Ergocalciferol, carisoprodol, pregabalin, fluoxetine, metoclopramide, zolpidem, amlodipine, clotrimazole, oxycodone, promethazine, butalbital, clonidine, erythropoietin, carvedilol, hydralazine, polyethylene glycol, bisacodyl, lactulose, Movantik. ALLERGIES: Pentazocine, triamterene, nalbuphine. SOCIAL: Resides at [facility]. FAMILY HISTORY: Noncontributory. REVIEW OF SYSTEMS: Otherwise noncontributory. PHYSICAL EXAMINATION: Vital Signs: Blood pressure 225/103, heart rate 85, respirations 20, afebrile. General: She is an obese, white female, lying at 20 degrees in no distress. Skin: Warm and dry. Conjunctivae are pink. Pupils are equal. Oropharynx is dry. Neck: Neck veins are not distended. Trachea is midline. Heart: Regular. No gallops, murmurs, rubs. Lungs: Have equal breath sounds. No crackles or wheezes. Abdomen: Obese and soft. Bowel sounds are present. No organomegaly or masses. Extremities: Have minimal edema. No clubbing or cyanosis. LABORATORY DATA: None available. IMPRESSION: 1. Nausea and vomiting. Most likely, gastroparesis. She will be admitted by the hospitalist and resume her routine outpatient regimen with the addition of intravenous as needed medication for nausea and vomiting. 2. Hypertension. Resume her home medications once her nausea and vomiting are better. I will provide IV labetalol as a supplement. 3. End-stage kidney disease. She is currently receiving her normal hemodialysis treatment. 4. Purported hyperkalemia. Repeat. cc: Yaya Santamaria MD
[2016-09-28] MEDS ORDERED: APRESOLINE IV PRN (15:31)
--- NOTE | 2016-09-28 16:07 | HISTORY AND PHYSICAL ---
DAIRY LAB TECHNICIAN: Dr. Yaya Santamaria. CHIEF COMPLAINT: Abnormal labs and nausea, vomiting. HISTORY OF PRESENT ILLNESS: Mrs. Harley is a 61-year-old, female, well known to our service with a history of ESRD on hemodialysis followed by Dr. Santamaria. She also has multiple other medical problems which will be noted in the PMH. She presents from [facility] in [place] with reports of elevated potassium levels. She has also been having nausea and vomiting since about 3:00 this morning. She has a well-known history of gastroparesis and states that, for whatever reason, her Reglan is not helping her today. She denies any abdominal pain, chest pain, fever, chills, or shortness of breath. She has no chest pain. When she got to the ER, she was directed to dialysis by Dr. Santamaria and labs will be assessed after dialysis. Currently, she is mildly hypertensive but, otherwise, her hemodynamics are stable and she has no acute complaints. Her nausea has been improved with Compazine IV. PAST MEDICAL HISTORY: 1. ESRD on hemodialysis followed by Dr. Santamaria. 2. Morbid obesity. 3. Depression. 4. Type 2 diabetes. 5. Chronic anemia. 6. History of cervical cancer. 7. Constipation. 8. Diabetic gastroparesis. 9. Chronic back pain. SURGICAL HISTORY: 1. Lumbar laminectomy, left Vas-Cath placement. 2. Right wrist ORIF. 3. Cholecystectomy. 4. Hysterectomy. 5. Abdominoplasty. 6. Left tibia ORIF. 7. Bilateral CTR. SOCIAL HISTORY: Remote history of tobacco use. She denies alcohol or illicit drug use. FAMILY HISTORY: Significant for CVA, diabetes, colon polyps, and atrial fibrillation. ALLERGIES: Nubain, Maxzide, and Talwin. HOME MEDICATIONS: 1. Norvasc 5 mg b.i.d. 2. Bisacodyl 10 mg 3. Butalbital 1 every 4 hours as needed for headache. 4. Soma 250 mg p.o. t.i.d. 5. Coreg 12.5 mg p.o. b.i.d. 6. Clonidine 0.1 mg b.i.d. 7. Clotrimazole cream as needed. 8. Epogen 10,000 units subcutaneously as directed. 9. Vitamin D 50,000 p.o. as directed. 10. Prozac 40 mg daily. 11. Apresoline 50 mg p.o. q. 8 hours. 12. Lactulose 30 mg p.o. b.i.d. 13. Reglan 5 mg p.o. t.i.d. 14. Movantik 12.5 mg p.o. 15. Oxycodone 10 every 4 hours as needed for pain. 16. MiraLAX 17 g b.i.d. 17. Lyrica 50 mg daily. 18. Phenergan 25 mg p.o. q.6 hours as needed. 19. Ambien 10 mg p.o. at bedtime. REVIEW OF SYSTEMS: Fourteen-point review of systems obtained by me negative with the exception of the HPI. PHYSICAL EXAMINATION: VITAL SIGNS: Blood pressure is 225/103, heart rate is 83, respiratory rate is 20, O2 saturation 93% on room air, temperature is 98.3 degrees. GENERAL: This is a morbidly obese, female, lying in the hospital bed in no acute distress. NEUROLOGIC: The patient is awake, alert, oriented. She follows commands without focal deficits. HEENT: Head is atraumatic, normocephalic. Pupils are equal, round, reactive to light. Oral pharynx is clear. NECK: Supple. CHEST: Diminished at the bases but clear to auscultation. CV: Regular rate and rhythm. S1-S2 noted. No murmurs, gallops, clicks, or rubs. GASTROINTESTINAL: Soft, obese, and nondistended. Bowel sounds are positive. EXTREMITIES: With trace edema. Diminished pulses palpable bilaterally. DIAGNOSTIC DATA: All pending. ASSESSMENT AND PLAN: 1. Nausea and vomiting: This is secondary to her gastroparesis. We will add IV Reglan and Compazine. If no improvement, we will ask GI for assistance. She has already improved significantly with IV Compazine. 2. Hyperkalemia: The patient is currently in dialysis. We are checking labs. She has been dialyzed. 3. End-stage renal disease, on hemodialysis: Dr. Santamaria will be managing her renal failure and dialysis. We will monitor her electrolytes, hemoglobin and hematocrit, and volume status closely. 4. Diabetes mellitus: We will make sure she is on pattern sugars and sliding scale insulin. 5. Hypertension: The patient's blood pressure is elevated. We will add IV p.r.n. medications and continue her home medications. 6. Chronic pain. We will continue all of her pain medications. 7. We will use heparin for deep venous thrombosis prophylaxis. Further recommendations to follow based on laboratory data. Dictated by WILMER Hand for Dany Raines MD cc: WILMER Hand MD
[2016-09-28 17:01] LABS: HEMOGLOBIN A1C 4.8 % (4.8-6.0)
[2016-09-28 17:31] LABS: MANUAL DIFF NEEDED? NO
[2016-09-28] MEDS: APRESOLINE PO SCH ×2 (17:35→22:27)
[2016-09-28] MEDS: PERCOCET-10 PO PRN ×2 (17:35→22:27)
[2016-09-28] MEDS: HUMALOG SUBQ SCH (17:36)
[2016-09-28] MEDS: MIRALAX PO SCH ×2 (17:36→22:29)
[2016-09-28 17:41] LABS: BASO% 0.2 % (0.0-0.8); HEMATOCRIT 33.3 % (37.0-47.0); HEMOGLOBIN 10.8 g/dL (12.0-16.0); IMM GRAN# 0.03 X1000 (0.0-0.04); IMM GRAN% 0.7 % (0.0-0.5); LYMPH# 0.44 X1000 (1.2-3.4); MCH 31.3 PG (27-31); MCHC 32.4 g/dL (33-37); MCV 96.5 FL (81-99); MONO# 0.21 X1000 (0.11-0.59); MONO% 4.8 % (1.7-9.3); MPV 10.1 FL (7.4-10.4); NEUT% 84.3 % (42.2-75.2); PLT 85 X1000 (130-400); RBC 3.45 XMIL (4.2-5.4)
[2016-09-28 17:47] LABS: ALBUMIN 3.3 g/dL (3.5-5.0); CALCIUM 8.6 mg/dL (8.8-10.2); POTASSIUM 4.1 mmol/L (3.5-5.1); TOTAL BILIRUBIN 0.36 mg/dL (0.20-1.00); TOTAL PROTEIN 5.9 g/dL (6.3-8.3)
[2016-09-28] MEDS: NORVASC PO SCH (22:27)
[2016-09-28] MEDS: AMBIEN PO SCH (22:27)
[2016-09-28] MEDS: LACTULOSE PO SCH ×2 (22:28→22:34)
[2016-09-28] MEDS: COREG PO SCH (22:28)
[2016-09-28] MEDS: HEPARIN SUBQ SCH (22:28)
[2016-09-28] MEDS: PHENERGAN IV PRN (23:16)
[2016-09-29] MEDS: PERCOCET-10 PO PRN ×3 (03:58→22:38)
[2016-09-29] MEDS: PHENERGAN IV PRN ×5 (03:58→22:38)
[2016-09-29] MEDS: LOTRISONE CREAM TOP SCH ×3 (06:30→21:10)
[2016-09-29] MEDS: HUMALOG SUBQ SCH ×5 (06:58→21:10)
[2016-09-29] MEDS: APRESOLINE PO SCH ×3 (07:02→22:38)
[2016-09-29] MEDS: MOVANTIK PO SCH (07:02)
[2016-09-29 07:26] LABS: ALBUMIN 3.2 g/dL (3.5-5.0); CALCIUM 8.6 mg/dL (8.8-10.2); POTASSIUM 4.3 mmol/L (3.5-5.1)
[2016-09-29 07:32] LABS: HEMOGLOBIN 9.5 g/dL (12.0-16.0); MCH 31.8 PG (27-31); MCHC 31.7 g/dL (33-37); MCV 100.3 FL (81-99); MPV 10.5 FL (7.4-10.4); RBC 2.99 XMIL (4.2-5.4)
[2016-09-29] MEDS: HEPARIN SUBQ SCH ×2 (09:35→21:12)
[2016-09-29] MEDS: COREG PO SCH ×2 (09:36→21:09)
[2016-09-29] MEDS: MIRALAX PO SCH ×2 (09:36→21:10)
[2016-09-29] MEDS: LACTULOSE PO SCH ×2 (09:36→21:10)
[2016-09-29] MEDS: PROZAC PO SCH (09:36)
[2016-09-29] MEDS: NORVASC PO SCH ×2 (09:44→21:10)
--- NOTE | 2016-09-29 11:45 | PROGRESS NOTE ---
DATE: 09/29/2016 TIME SEEN: 0730 hours. SUBJECTIVE: Ms. Harley is resting quietly in bed. She denies chest pain or increased work of breathing. She does continue to complain of severe nausea. VITAL SIGNS: Her most recent vital signs: Temperature 98.4 degrees, blood pressure 186/71, heart rate 74, respirations 16. She is on room air. Last recorded saturation is 95% . She has had 240 in; she has had 0 recorded out, although she had approximately 1 L pulled on dialysis yesterday. LABS: This a.m., sodium 135, potassium 4.3, chloride 95, CO2 27. BUN 30, creatinine 3.3, glucose 101. Her anion gap is 13. Her calcium is 8.6, phosphorus 5.9, albumin 3.2. White count 4.28, hemoglobin 9.5, hematocrit 30, platelet count 81. OBJECTIVE: General: On physical exam, this is a 61-year-old white female. She is currently resting in bed. She appears chronically ill. She is in mild distress secondary to nausea. Skin: Warm and dry. HEENT: Normocephalic, atraumatic. Conjunctivae pale. She has TU. Mucous membranes are dry. Neck: Supple. Trachea midline. No JVD. Cardiovascular: She is regular rate and rhythm. No murmur or gallop appreciated. Lungs: Clear to auscultation anterior. Equal excursion on room air. Abdomen: Obese, soft, nontender. Abdomen is without mass. Genitourinary: Not inspected. Minimal void with dialysis assist. Extremities : Have no edema. No clubbing or cyanosis. Neurological: She is alert and oriented x3. ASSESSMENT AND PLAN: 1. End-stage renal disease. Patient had her routine dialysis treatment yesterday evening with minimal pull secondary to her being close to her dry weight during dialysis. 2. Hypertension. She has resumed her home medications. We do have labetalol on board as GA in for a systolic blood pressure greater than 160. 3. Electrolytes and acid-base balance. This is stable. 4. Anemia. This remains low, but stable, with no indications for intervention. I would like to thank you for allowing us to follow with this patient. Seen, data reviewed, discussed with Sky Glaser on 09/28/16. I agree with the above assessment and plan of care. rg Dictated by WILMER Thomas for Yaya Santamaria MD cc: WILMER Thomas MD [facility]
--- NOTE | 2016-09-29 14:30 | PROGRESS NOTE ---
DATE: 09/29/2016 SUBJECTIVE: Today Ms. Harley refers to be doing fine. Continues to have some nausea but according to her, it is a little better than yesterday. Also complains of some back pain which has been hurting for some time. The patient is on Percocet but because of nausea and vomiting this is not tolerating OBJECTIVE: Vital Signs: Blood pressure is 175/71, pulse of 71, respiration is 20, temperature is 98.3 degrees. General Exam: Ms. Harley is a 61-year-old female, morbidly obese, BMI is 31. HEENT: Mucosa is pink and moist. Anicteric. Acyanotic. Neck: Supple. Chest: Good air entry bilaterally. No crepitations. No rhonchi. Cardiovascular: Regular rate and rhythm. The patient has a port on the right anterior chest wall and also a tunneled dialysis catheter on the left anterior chest wall. Abdomen: Soft, distended, but nontender. Extremities: No pedal edema. CROZER: Patient is alert and oriented x4. There is no focal neurological deficit. LABORATORY DATA: WBC is 4.28, hemoglobin is 9.5, platelet count of 81,000. Chemistry: Sodium is 135, potassium 4.3, chloride 95, bicarb is 27, creatinine is 3.3, consistent with end-stage renal disease. ASSESSMENT: 1. Intractable nausea and vomiting, likely secondary to underlying gastroparesis. Patient seems to be doing fine however nausea is persistent and occasional vomiting. We will going to add erythromycin to the Reglan for better control of the gastroparesis. 2. End stage renal disease on dialysis. Patient is being followed up by Nephrology. 3. Hypertension. Stable. 4. Diabetes mellitus. We will continue with the current glucose control. 5. Chronic pain. Patient is not tolerating the p.o. Will add low-dose Dilaudid to see if that helps with her pain. So I think in general Ms. Harley is a little bit better. We are going add erythromycin for the gastroparesis and we will also add a low-dose opioid to control her pain. cc: Dany Raines MD MTDD
[2016-09-29] MEDS: DILAUDID IV PRN ×3 (14:36→21:11)
[2016-09-29] MEDS: LYRICA PO SCH (14:37)
[2016-09-29] MEDS: ERYTHROMYCIN 250 MG in NS 150 ML IV SCH (16:34)
[2016-09-29] MEDS: AMBIEN PO SCH (22:38)
[2016-09-30] MEDS: DILAUDID IV PRN ×7 (00:40→22:01)
[2016-09-30] MEDS: ERYTHROMYCIN 250 MG in NS 150 ML IV SCH ×2 (03:29→15:00)
[2016-09-30] MEDS: PHENERGAN IV PRN ×5 (03:30→20:43)
[2016-09-30] MEDS: APRESOLINE PO SCH ×3 (05:53→15:00)
[2016-09-30] MEDS: MOVANTIK PO SCH (06:30)
[2016-09-30 06:45] LABS: HEMATOCRIT 29.2 % (37.0-47.0); HEMOGLOBIN 9.2 g/dL (12.0-16.0); MCH 31.7 PG (27-31); MCHC 31.5 g/dL (33-37); MCV 100.7 FL (81-99); RBC 2.9 XMIL (4.2-5.4)
[2016-09-30] MEDS: HUMALOG SUBQ SCH ×4 (06:48→20:52)
[2016-09-30 07:03] LABS: CALCIUM 8.5 mg/dL (8.8-10.2)
[2016-09-30] MEDS ORDERED: TIGHT: 0.2 ML/HR MISC PRN (07:24)
[2016-09-30] MEDS ORDERED: NS 2,000 ML MISC PRN (07:24)
[2016-09-30] MEDS ORDERED: HEPARIN IV PRN (07:24)
[2016-09-30] MEDS ORDERED: NS 2,000 ML ONE (08:19)
[2016-09-30] MEDS ORDERED: HEPARIN ONE (08:19)
--- NOTE | 2016-09-30 11:16 | PROGRESS NOTE ---
DATE: 09/30/2016 SUBJECTIVE: Ms. Harley is sitting on the side of the bed. She states that she continues nauseated. She continues with abdominal discomfort though it is slightly improved after change to her medications yesterday. OBJECTIVE: Her most recent vital signs are temperature 98.2 degrees, blood pressure 149/61, heart rate 61, respirations 12. She is on room air. Last recorded saturation 97%. She has had 530 in; she has had 0 out. LABORATORY DATA: Sodium 133, potassium 4, chloride 94, CO2 26, BUN 35, creatinine 4.1, glucose 109, anion gap 13, calcium 8.5, phosphorus 6.2, albumin 3. White count 4.66, hemoglobin 9.2, hematocrit 29.2, with a platelet count of 91,000. PHYSICAL EXAMINATION: General: This is a 61-year-old white female. She is resting quietly in bed. She has no acute distress. Improved abdominal pain. Skin: Warm and dry. HEENT: Normocephalic, atraumatic. Conjunctivae pink. She has TU. Mucous membranes moist. Neck: Supple. Trachea midline. No JVD. Cardiovascular: She has regular rate and rhythm. No murmur or gallop appreciated. Lungs: Clear to auscultation anteriorly. Equal excursion on room air. Abdomen: Obese, soft, nontender. Positive bowel sounds. Genitourinary: Not inspected. Minimal void with dialysis assist. Extremities: Have no edema. No clubbing or cyanosis. Neurological: Alert and oriented x3. ASSESSMENT AND PLAN: 1. End-stage renal disease. Patient is in need of her routine dialysis treatment. We will place her on a 2 K bath. She is to dialyze for 3-1/2 hours. We will attempt to challenge her dry weight while she is in the hospital. 2. Electrolytes. These are stable with mild hyponatremia with correction on dialysis. 3. Acidosis. This is stable. 4. Anemia. This remains in low but stable with no indications for intervention. 5. Nausea and vomiting. We will defer to the primary care team though this is slightly improved. I would to thank you for allowing us to follow with this patient. Dictated by WILMER Thomas for Yaya Santamaria MD cc: WILMER Thomas MD
[2016-09-30] MEDS: HEPARIN SUBQ SCH ×2 (12:46→20:43)
[2016-09-30] MEDS: NORVASC PO SCH ×2 (12:47→20:44)
[2016-09-30] MEDS: PROZAC PO SCH (12:47)
[2016-09-30] MEDS: COREG PO SCH ×2 (12:47→20:44)
[2016-09-30] MEDS: LYRICA PO SCH (12:47)
[2016-09-30] MEDS: LACTULOSE PO SCH ×2 (12:52→20:52)
[2016-09-30] MEDS: LOTRISONE CREAM TOP SCH ×2 (12:52→20:53)
[2016-09-30] MEDS: MIRALAX PO SCH ×2 (12:52→20:52)
--- NOTE | 2016-09-30 14:58 | PROGRESS NOTE ---
DATE: 09/30/2016 SUBJECTIVE: Today Ms. Harley refers to be doing a little better. Continues to have some episodes of nausea but no vomiting. OBJECTIVE: Vital signs: Blood pressure is 174/64, pulse of 71, respiration is 20, temperature is 98.9 degrees. General: Ms. Harley is a 61-year-old female. She is in bed, not seemingly in distress. HEENT: Mucosa is pink and moist. Anicteric. Acyanotic. Neck: Supple. Chest: Good air entry bilaterally. A few bibasilar crepitations. Cardiovascular: Regular rate and rhythm. Abdomen: Soft. Extremities: No pedal edema. There is a port on the right anterior chest wall and a tunneled catheter on the left anterior chest wall. LAB: WBC is 4.66, hemoglobin is 9.2, platelet count of 91,000. Chemistry is reviewed, all consistent with end-stage renal disease. ASSESSMENT: 1. Intractable nausea and vomiting. This has significantly improved. Patient has been started on erythromycin with the Reglan and we are going to continue with this for now. 2. History of gastroparesis. We think that is what is causing #1. 3. End stage renal disease on hemodialysis. 4. Hypertension. 5. Diabetes mellitus. Improved. 6. Chronic pain syndrome. So in general I think Ms. Harley is gradually getting better. We are going to continue with the current therapy. Patient will be getting hemodialysis today. cc: Dany Raines MD
[2016-09-30] MEDS: PERCOCET-10 PO PRN (20:44)
[2016-09-30] MEDS: AMBIEN PO SCH (22:01)
[2016-10-01] MEDS: PERCOCET-10 PO PRN
[2016-10-01] MEDS: DILAUDID IV PRN ×7 (00:49→21:16)
[2016-10-01] MEDS: PHENERGAN IV PRN ×6 (00:54→22:12)
[2016-10-01] MEDS: ERYTHROMYCIN 250 MG in NS 150 ML IV SCH ×2 (04:31→15:43)
[2016-10-01 05:49] LABS: HEMOGLOBIN 9.5 g/dL (12.0-16.0); MCH 31.1 PG (27-31); MCHC 31.7 g/dL (33-37); MCV 98.4 FL (81-99); MPV 9.6 FL (7.4-10.4); RBC 3.05 XMIL (4.2-5.4)
[2016-10-01] MEDS: APRESOLINE PO SCH ×4 (06:25→21:15)
[2016-10-01] MEDS: MOVANTIK PO SCH (06:25)
[2016-10-01 07:15] LABS: CALCIUM 8.3 mg/dL (8.8-10.2); POTASSIUM 3.8 mmol/L (3.5-5.1)
[2016-10-01] MEDS: MIRALAX PO SCH ×2 (08:57→21:23)
[2016-10-01] MEDS: LACTULOSE PO SCH ×2 (08:57→21:24)
[2016-10-01] MEDS: PROZAC PO SCH (08:58)
[2016-10-01] MEDS: LYRICA PO SCH (08:58)
[2016-10-01] MEDS: COREG PO SCH ×2 (08:58→21:15)
[2016-10-01] MEDS: NORVASC PO SCH ×2 (08:58→21:15)
[2016-10-01] MEDS: HEPARIN SUBQ SCH ×2 (08:59→21:16)
[2016-10-01] MEDS: LOTRISONE CREAM TOP SCH ×2 (09:00→21:23)
[2016-10-01] MEDS: HUMALOG SUBQ SCH ×4 (09:01→21:22)
--- NOTE | 2016-10-01 11:12 | PROGRESS NOTE ---
DATE: 10/01/2016 SUBJECTIVE: Patient is resting in bed. She states that her nausea has dissipated and that she would like some food to eat. OBJECTIVE: Vital Signs: Temperature 98.2 degrees, pulse 66, respiratory rate 13, blood pressure 167/86. Intake 240 mL. Output 2.5 L. Physical Examination: General: This is a middle-aged female, resting in bed. No acute distress. Awake, alert, oriented x4. HEENT: Normocephalic, atraumatic. Oral mucosa moist. Neck: Supple. Trachea midline. Cardiovascular: Regular rate and rhythm without murmur or gallop. Pulmonary: She has equal excursion. She is clear bilaterally. No increased work of breathing. She remains on room air. Abdomen: Obese, soft. She has positive bowel sounds. : Not inspected. Minimal void with hemodialysis assist. Extremities: No clubbing, cyanosis, or edema. She is moving all extremities and ambulatory with assistance. Integumentary: Skin is warm and dry without rash or lesion. She has a tunneled dialysis catheter noted in the left upper chest wall. Insertion site is clean, dry, intact. Lab Data: WBC of 3.7, hemoglobin 9.5. Sodium 134, potassium 3.8, CO2 27, BUN 23, creatinine 3.4. ASSESSMENT AND PLAN: 1. End-stage renal disease management. The patient is on a Sunday, , Sunday schedule. However, we need to continue trying to challenge her dry weight while she is in the hospital. As such, we will go ahead and plan to run her on Sunday. 2. Electrolytes, acid-base balance, anemia. These have all been stable. Make no changes. We will continue to correct sodium and bicarbonate on dialysis. 3. Nausea and vomiting. This appears improved. From a renal standpoint, I have no objections to her being advanced to a soft or regular diet as per the discretion of the primary. Dictated by WILMER Neumann for Yaya Santamaria MD cc: Yaya Santamaria MD
--- NOTE | 2016-10-01 16:03 | PROGRESS NOTE ---
DATE: 10/01/2016 SUBJECTIVE: Ms. Harley says she is feeling better. She would like to try a soft diet. No nausea at the present time. This is a 61-year-old who presented with abnormal laboratory, nausea, vomiting. She is known to our service with history of end-stage renal disease, hemodialysis, followed by Dr. Santamaria. Also has multiple other medical problems, morbid obesity, depression, diabetes mellitus type 2, chronic anemia, history of cervical cancer, constipation, diabetic gastroparesis, chronic back pain. Surgical history, status post lumbar laminectomy, left Vas-Cath placement, right wrist open reduction and internal fixation, cholecystectomy, hysterectomy, abdominoplasty, left tibia open reduction, internal fixation, bilateral carpal tunnel release. She presented from [facility] [place] with reports of elevated potassium. Also had been having nausea and vomiting since about 3 o'clock in the morning. Well known history of gastroparesis. She is on Reglan I believe. Dr. Raines started her on some erythromycin. Exam today, feeling better, abdomen soft, nontender. OBJECTIVE: Vital signs: Temperature 98, pulse 65, respirations 20, blood pressure 155/67. Lungs: Clear in all lung jones. Skin: Warm and dry. : Urine output yesterday was about 2700 mL. LABORATORY: Reviewed from today. White count 3780, hematocrit 30, platelet count 109,000. Sodium 134, potassium 3.8, chloride 96, BUN 23, creatinine 3.4, blood sugar is 116, 77, 71. ASSESSMENT AND PLAN: 1. End-stage renal disease. The patient gets dialysis Sunday, , Sunday schedule. I continue to try to challenge her dry weight while she is in the hospital. So I plan to run her again on Sunday. 2. Electrolyte, acid balance anemia, appears stable. 3. Nausea and vomiting. Suspect gastroparesis, erythropoietin has been started. We will try her on a soft diet and gastrointestinal diet and see if this will help. 4. Hypertension, blood pressure controlled. 5. Chronic pain syndrome. Review of her orders: She is on Ambien 10 mg at bedtime. She gets Phenergan 25 mg q.4 hours p.r.n. nausea. Lyrica 50 mg a day. MiraLAX 17 g b.i.d. Oxycodone 10 mg q.4 hours p.r.n. She is on Movantik 12.5 mg. She is on labetalol p.r.n. 20 mg IV q.4 hours. Lactulose 30 mL b.i.d. Hydralazine 50 mg p.o. q.8 hours p.r.n. Prozac 40 mg daily. She is on erythromycin 250 mg IV q.12 hours. Vitamin D3 50,000 units daily. Epogen 10,000 units subcutaneous with dialysis. She gets Catapres 0.1 mg b.i.d. Coreg 12.5 mg b.i.d. Soma 250 mg b.i.d. Amlodipine 5 mg b.i.d. We will try her on a soft diet. cc: Taqueria Vo MD
[2016-10-01] MEDS: AMBIEN PO SCH (21:15)
[2016-10-01] MEDS: SODIUM CHLORIDE 0.9% INJ PRN (22:11)
[2016-10-02] MEDS: DILAUDID IV PRN ×7 (00:06→23:58)
[2016-10-02] MEDS: APRESOLINE PO SCH ×4 (01:32→23:57)
[2016-10-02] MEDS: PHENERGAN IV PRN ×4 (01:58→20:08)
[2016-10-02] MEDS: SODIUM CHLORIDE 0.9% INJ PRN ×3 (01:58→14:25)
[2016-10-02] MEDS: ERYTHROMYCIN 250 MG in NS 150 ML IV SCH ×2 (03:09→16:43)
[2016-10-02] MEDS: LYRICA PO SCH (09:08)
[2016-10-02] MEDS: MIRALAX PO SCH ×2 (09:08→20:11)
[2016-10-02] MEDS: COREG PO SCH ×2 (09:08→20:10)
[2016-10-02] MEDS: PROZAC PO SCH (09:08)
[2016-10-02] MEDS: HEPARIN SUBQ SCH ×2 (09:09→20:09)
[2016-10-02] MEDS: HUMALOG SUBQ SCH ×4 (09:11→20:12)
[2016-10-02] MEDS: LACTULOSE PO SCH ×2 (09:11→20:10)
[2016-10-02] MEDS: NORVASC PO SCH ×2 (09:12→20:11)
[2016-10-02] MEDS: LOTRISONE CREAM TOP SCH ×2 (09:12→20:11)
--- NOTE | 2016-10-02 10:11 | Diag Imaging Result Doc PS360 ---
CHEST-PORTABLE - 10/02/2016 INDICATION: shortness of breath TECHNIQUE: COMPARISON: 09/13/2016 FINDINGS: Stable right chest port and left dialysis catheter in good position. Heart size and pulmonary vascularity are top normal. No focal infiltrates, pneumothorax, or pleural effusion. IMPRESSION: No acute disease or change from prior. Electronically signed by Kushal Green 10/02/2016 10:09 AM
--- NOTE | 2016-10-02 11:04 | PROGRESS NOTE ---
DATE: 10/02/2016 SUBJECTIVE: Ms. Harley is resting quietly on the side of the bed. She is getting up to go to the bathroom. She denies any chest pain. No increased work of breathing. She states that she has just finished her breakfast and she is hoping that it will stay down. She has some nausea with no emesis. OBJECTIVE: Vital Signs: Her most recent vital signs are temperature 98.2 degrees, blood pressure 136/57, heart rate 65, respirations 18. She is on room air with last recorded saturation 98%. She has had 1904 in, she has had 0 recorded out. Her labs this a.m. have not been drawn secondary to patient not requiring dialysis today. Again labs have not been drawn today secondary to patient not requiring dialysis. General: This is a 61-year-old white female. She is resting quietly in bed. She is in no acute distress. Skin: Warm and dry. HEENT: Normocephalic, atraumatic. Conjunctivae are pale. She has TU. Mucous membranes are moist. Neck: Supple. Trachea midline. No JVD. Cardiovascular: Regular rate and rhythm. She is without gallop. She does have soft murmur. Pulmonary: Clear to auscultation bilaterally. Equal excursion on room air. Abdomen: Obese, soft, nontender. Positive bowel sounds present. Genitourinary: Not inspected. Minimal void with dialysis assist. Extremities: Have no edema. No clubbing or cyanosis. Integumentary: No rashes or lesions evident. Neurological: Alert and oriented x3. ASSESSMENT AND PLAN: 1. End-stage renal disease. Patient is due for her routine dialysis treatment in the a.m. We have discussed when the patient is discharged she is to go to her outpatient appointment at the [facility]. 2. Electrolytes and acid-base balance. These have been stable. 3. Anemia. This has been stable with no need for intervention. Labs to be drawn in the morning. 4. Nausea and vomiting. This has slightly improved though it continues. I would to thank you for allowing us to follow with this patient. Dictated by WILMER Thomas for Yaya Santamaria MD cc: WILMER Thomas MD
--- NOTE | 2016-10-02 13:53 | PROGRESS NOTE ---
DATE: 10/02/2016 SUBJECTIVE: Ms. Harley says she overall feels better. Food is going down soft diet. She is tolerating. She has been having a lot of nightmares and dreams at night and so she thinks she has walking pneumonia. Her breathing is comfortable. I told her we get a chest x-ray. OBJECTIVE: Vital signs: Temperature 98.2 degrees, pulse 65, respirations 18, blood pressure 136/57. HEENT: Pupils are equal, round. CVP less than 6 cm. Lungs: Clear in all lung jones. Cardiovascular: Regular rhythm and rate without murmur, S3. LAB: Blood sugars been amazingly controlled, 77-126. Lab reviewed. White count 3780, hematocrit 30, platelet count 109,000. Chemistries. Blood sugar 146, 114, 97, 146. Chest x- ray this morning. Stable right chest, left dialysis catheter in good position. Heart size and pulmonary vascularity are normal. No focal infiltrates ASSESSMENT AND PLAN: 1. End-stage renal disease. Continue dialysis. She is to go for outpatient treatment at [facility] on discharge. 2. Electrolytes and acid-base balance look stable. 3. Anemia. No intervention needed. 4. Nausea and vomiting which is improved. I think we need to go back on her Reglan. Review of her other orders I do not see any change but I will put her back on her Reglan at 10 mg before every meal and at bedtime. cc: Taqueria Vo MD
[2016-10-02] MEDS: REGLAN PO SCH ×2 (16:44→20:11)
[2016-10-02] MEDS: PERCOCET-10 PO PRN (17:34)
[2016-10-02] MEDS: AMBIEN PO SCH (20:10)
[2016-10-03] MEDS: PHENERGAN IV PRN ×5 (00:45→20:38)
[2016-10-03] MEDS: DILAUDID IV PRN ×6 (03:29→23:32)
[2016-10-03] MEDS: ERYTHROMYCIN 250 MG in NS 150 ML IV SCH ×2 (03:30→15:47)
[2016-10-03] MEDS: PERCOCET-10 PO PRN (04:03)
[2016-10-03 07:18] LABS: ALBUMIN 3.1 g/dL (3.5-5.0); CALCIUM 8.4 mg/dL (8.8-10.2); POTASSIUM 4.2 mmol/L (3.5-5.1)
[2016-10-03] MEDS ORDERED: HEPARIN IV PRN (07:24)
[2016-10-03] MEDS ORDERED: NS 2,000 ML MISC PRN (07:24)
[2016-10-03] MEDS ORDERED: TIGHT: 0.2 ML/HR MISC PRN (07:24)
[2016-10-03] MEDS: REGLAN PO SCH ×4 (07:41→20:36)
[2016-10-03] MEDS: MOVANTIK PO SCH (07:42)
[2016-10-03] MEDS: APRESOLINE PO SCH ×3 (07:43→23:33)
[2016-10-03] MEDS: HUMALOG SUBQ SCH ×4 (07:45→20:46)
[2016-10-03] MEDS ORDERED: HEPARIN ONE (07:51)
[2016-10-03] MEDS ORDERED: NS 2,000 ML ONE (07:51)
[2016-10-03] MEDS: PROZAC PO SCH (13:38)
[2016-10-03] MEDS: COREG PO SCH ×2 (13:39→20:36)
[2016-10-03] MEDS: LYRICA PO SCH (13:39)
[2016-10-03] MEDS: HEPARIN SUBQ SCH ×2 (13:39→20:36)
[2016-10-03] MEDS: NORVASC PO SCH ×2 (13:39→20:37)
[2016-10-03] MEDS: LOTRISONE CREAM TOP SCH ×2 (13:45→21:55)
[2016-10-03] MEDS: LACTULOSE PO SCH ×2 (13:45→21:56)
[2016-10-03] MEDS: MIRALAX PO SCH ×2 (13:45→21:55)
--- NOTE | 2016-10-03 15:05 | PROGRESS NOTE ---
DATE: 10/03/2016 SUBJECTIVE: Ms. Harley is sitting on the side of the bed. She is eating her breakfast. She states that she has eaten approximately 50% of her trays yesterday with only mild nausea. She denies chest pain or increased work of breathing at this time. OBJECTIVE: Her most recent vital signs are temperature 97.7 degrees, blood pressure 137/67, heart rate 69, respirations 16. She is on room air. Last recorded saturation 94%. She has had 960 in. She has had 0 recorded out and need for dialysis today. LABORATORY DATA: Sodium 130, potassium 4.2, chloride 92, CO2 23, BUN 42, creatinine 5, glucose 133. Anion gap 15. Calcium 8.4, phosphorus 7.8, albumin 2.1. Her previous hemoglobin 9.5 on the 4th. PHYSICAL EXAM: This is a 61-year-old white female. She is resting on the side of the bed. She is in no acute distress.Skin: Warm and dry. HEENT: Normocephalic, atraumatic. Conjunctivae pale. She has TU. Mucous membranes moist. Neck: Supple. Trachea midline. No JVD. Cardiovascular: She is regular rate and rhythm. No murmur or gallop appreciated. Lungs: Clear to auscultation bilaterally. Equal excursion. She is on room air. Abdomen: Obese, soft, nontender. Positive bowel sounds. Genitourinary: Not inspected. Minimal void with dialysis assist. Extremities: With no edema. No clubbing or cyanosis. Integumentary: No rashes or lesions evident. Neurological: Alert and oriented x3. ASSESSMENT AND PLAN: 1. End-stage renal disease. Patient is due for her routine dialysis treatment today. We will place her on a 2 K bath. She is to dialyze for 3.5 hours. We will attempt to pull her to her last inpatient dry weight. 2. Electrolytes. Patient continues with hyponatremia secondary to #1. No indications for changes with correction on dialysis. 3. Acid-base balance. This remains stable. 4. Anemia. This remains low but stable. 5. Gastroparesis with nausea and vomiting. This continues to improve. Followed by primary care. I would like to thank you for allowing us to follow with this patient. Dictated by WILMER Thomas for Yaya Santamaria MD cc: WILMER Thomas MD
--- NOTE | 2016-10-03 16:31 | PROGRESS NOTE ---
DATE: 10/03/2016 Ms. Harley was feeling better. Tolerating soft diet. Plan is dialysis this morning and see how we do. Breathing is comfortable. Remains afebrile. Pulse 70, respirations 18, blood pressure 156/51.HEENT: Pupils are equal, round. CVP less than 6 cm. Lungs: Clear in all lung jones. Cardiovascular: Regular rhythm and rate without murmur or S3. They took off I think about 6 L dialysis. LAB: Reviewed from the 4th. Chemistries from this morning sodium 130, potassium 4.2, chloride 92, bicarb 23, BUN 40, creatinine 5.0. Blood sugar is 160, 95, 173, 118. ASSESSMENT AND PLAN: 1. End-stage renal disease. Continue dialysis. Volume status has improved. 2. Electrolytes, acid-base balance are stable. 3. Anemia stable. 4. Nausea, vomiting, underlying gastroparesis. She is back on her Reglan and seems to be doing better. Hope to get her back to the care home tomorrow. Plan is for routine dialysis today and then place her on a 2 K bath. cc: Taqueria Vo MD
--- NOTE | 2016-10-03 20:34 | DISCHARGE SUMMARY ---
ADMISSION DATE: 09/28/2016 DISCHARGE DATE: 10/04/2016 HISTORY: She came in with abnormal labs, nausea, and vomiting. This is a 61-year-old white female well known to our service with history of end-stage renal disease, and hemodialysis followed by Dr. Santamaria. There are possible multiple medical problems noted in the past medical history. She presented from [facility] and in [place] with reports of elevated potassium levels. She also has been having nausea and vomiting since about 3:00 the morning of 09/28/2016. She has a well-known history of gastroparesis and states that for whatever reason her Reglan was not helping her. Denied any abdominal pain, chest pain, fever, chills or shortness of breath. She had no chest pain. She got to the emergency room. She was directed to dialysis per Dr. Santamaria, and currently on presentation she was mildly hypertensive. PAST MEDICAL HISTORY: 1. Endstage renal disease on hemodialysis per Dr. Santamaria. 2. Morbid obesity. 3. Depression. 4. Diabetes mellitus type 2. 5. Chronic anemia. 6. History of cervical cancer. 7. Constipation. 8. Diabetic gastroparesis. 9. Chronic back pain. SURGICAL HISTORY: 1. Lumbar laminectomy left Vas-Cath placement. 2. Right wrist open reduction internal fixation. 3. Cholecystectomy. 4. Hysterectomy. 5. Abdominal plasty. 6. Left tibia open reduction and internal fixation. 7. Bilateral CTR. HOSPITAL COURSE: She was admitted for the nausea, vomiting, and gastroparesis. They did give some IV Reglan I think for a time and gave her some IV erythromycin. Her nausea did dissipate and she was able to advance her to a soft diet. She had some mild hyperkalemia which was addressed with dialysis, volume status, was watched closely and this improved as well with hemodialysis. Blood sugars were monitored and blood pressure. She showed improvement really in all areas. Chest x-ray on 10/02/2016 no significant change. We felt she could go back to the senior living on 10/04/2016. DISCHARGE MEDICATIONS: We will have her on the which is acetaminophen, butalbital and caffeine 1 q.4 hours p.r.n., Norvasc 5 mg b.i.d. Lotrisone Cream as needed. Soma 250 mg p.o. t.i.d. p.r.n., Coreg 12.5 mg b.i.d., Catapres 0.1 mg b.i.d. p.r.n. She gets her Epogen 95987 units before dialysis 3 times a week. Vitamin D 42817 units p.o. q.7 days. Prozac 40 mg daily. She is getting heparin foot 5000 units subcutaneous q.12 hours, Apresoline 50 mg p.o. q.8 hours. Labetalol 20 mg IV q.4 hours p.r.n., lactulose 30 mL p.o. b.i.d., and Movantik 12.5 mg p.o. HCB. Percocet 10 mg. She is getting q.4 hours p.r.n. pain MiraLAX 17 g b.i.d. Lyrica 50 mg p.o. daily. Ambien 10 mg at bedtime. cc: Taqueria Vo MD
[2016-10-03] MEDS: AMBIEN PO SCH (20:36)
[2016-10-04] MEDS: SODIUM CHLORIDE 0.9% INJ PRN ×2 (00:48→04:55)
[2016-10-04] MEDS: PHENERGAN IV PRN ×4 (00:49→15:11)
[2016-10-04] MEDS: DILAUDID IV PRN ×4 (02:52→15:10)
[2016-10-04] MEDS: ERYTHROMYCIN 250 MG in NS 150 ML IV SCH (02:55)
[2016-10-04] MEDS: REGLAN PO SCH ×3 (05:55→11:17)
[2016-10-04] MEDS: MOVANTIK PO SCH ×3 (05:55→08:03)
[2016-10-04 06:40] LABS: ALBUMIN 3.3 g/dL (3.5-5.0); CALCIUM 8.7 mg/dL (8.8-10.2); POTASSIUM 3.9 mmol/L (3.5-5.1)
[2016-10-04] MEDS: APRESOLINE PO SCH (08:03)
[2016-10-04] MEDS: HUMALOG SUBQ SCH ×2 (08:03→10:44)
[2016-10-04] MEDS: COREG PO SCH (08:23)
[2016-10-04] MEDS: LYRICA PO SCH (08:23)
[2016-10-04] MEDS: NORVASC PO SCH (08:23)
[2016-10-04] MEDS: HEPARIN SUBQ SCH (08:23)
[2016-10-04] MEDS: PROZAC PO SCH (08:23)
[2016-10-04] MEDS: MIRALAX PO SCH (08:29)
[2016-10-04] MEDS: LOTRISONE CREAM TOP SCH (08:29)
[2016-10-04] MEDS: LACTULOSE PO SCH (08:29)
--- NOTE | 2016-10-04 12:34 | PROGRESS NOTE ---
DATE: 10/04/2016 SUBJECTIVE: Ms. Harley is resting quietly in bed. She has no complaints today. She states her nausea has slightly improved. She denies chest pain or increased work of breathing. OBJECTIVE: Her most recent vital signs are temperature 98.3 degrees, blood pressure 135/61, heart rate respirations. She is currently on room air. Last recorded saturation 98%. She has had 1810 in; she has had 3500 out, per dialysis. LABORATORY DATA: Sodium 135, potassium 3.9, chloride 96, CO2 25, BUN 33, creatinine 4, glucose 129, anion gap 14, calcium 8.7, phosphorus 6.3, albumin 3.3. Last hemoglobin is 9.5 on the . PHYSICAL EXAMINATION: Vital Signs: This is a 61-year-old white female. She is currently resting in bed. She is in no acute distress. Skin: Warm and dry. HEENT: Normocephalic, atraumatic. Conjunctiva is pale. She has TU. Mucous membranes moist. Neck: Supple. Trachea midline. No JVD. Cardiovascular: Regular rate and rhythm. She is without murmur or gallop. Lungs: Clear to auscultation anteriorly. Equal excursion on room air. Abdomen: Obese, soft, nontender. Positive bowel sounds. Genitourinary: Not inspected. Minimal void with dialysis assist. Extremities: Continues with no edema. No clubbing or cyanosis. Integumentary: No rashes or lesions evident. Neurological: Alert and oriented x3. ASSESSMENT AND PLAN: 1. End-stage renal disease. Patient is due for her routine dialysis treatment in the morning on an outpatient basis. She has been receiving an extra treatment weekly to assist with her fluid volume. We will plan to dialyze her today for hemofiltration only for 3 L and then patient is to be discharged to follow up with her outpatient normal treatment in the a.m. 2. Electrolytes. Patient continues with chronic hyponatremia though this is improved today secondary to dialysis yesterday. 3. Acid-base balance and anemia. These remain stable. 4. Intractable nausea and vomiting. This is improved during her hospitalization secondary to gastroparesis. This is followed by the primary care team. I would to thank you for allowing us to follow with this patient. Dictated by WILMER Thomas for Yaya Santamaria MD cc: WILMER Thomas MD
[2016-10-04] MEDS ORDERED: HEPARIN ONE (12:52)
[2016-10-04] MEDS ORDERED: NS 1,000 ML ONE (12:52)
[2016-10-04] MEDS ORDERED: TIGHT: 0.2 ML/HR MISC PRN (12:59)
[2016-10-04] MEDS ORDERED: HEPARIN IV PRN (12:59)
[2016-10-04] MEDS ORDERED: NS 2,000 ML MISC PRN (12:59)
[2016-10-04 15:20] VITALS: BP 156/63
== END 2016-10-04 16:16 ==
LOC: ED 10:47 → 4N 14:20 → SUATTDRO 14:20 → 4N 10-02 11:31
PROVIDERS: ATTEND Emergency Medicine

== ENCOUNTER 2016-12-25 19:17 | Inpatient (IN) ==
--- NOTE | 2016-12-25 19:58 | PROVIDER DOCUMENTATION ---
This chart was entered by Mando Aranda Scribe, acting as scribe for Angel Iglesias MD. HPI-General Adult - General Stated Complaint: AMS Time Seen by Provider: 12/25/16 19:20 Source: patient Allergies/Adverse Reactions: Patient Allergies Allergy/AdvReac Type Severity Reaction Status Date / Time pentazocine lactate * Allergy Severe ANAPHYLAXIS Verified 10/12/16 16:17 [From Talwin] triamterene [From Maxzide] Allergy Unknown chest pain Verified 10/12/16 16:17 nalbuphine HCl * AdvReac Intermediate NAUSEA/VOMI Verified 10/12/16 16:17 [From Nubain] TING Home Medications: Home Medication List Medication Instructions Recorded Confirmed Last Taken Type Ergocalciferol (Vitamin D2) 50,000 unit PO Q7D #10 capsule 08/25/15 12/26/16 Rx [Vitamin D] Carisoprodol [Soma] 250 mg PO TID PRN 02/03/16 12/26/16 12/25/16 History Fluoxetine HCl [Prozac] 40 mg PO DAILY 04/03/16 12/26/16 12/25/16 History Metoclopramide [Reglan] 5 mg PO TID AC #90 tablet 05/26/16 12/26/16 10/15/16 20: 00 Rx Amlodipine [Norvasc] 5 mg PO BID #60 tablet 05/29/16 12/26/16 12/25/16 Rx Clotrimazole/Bmethasone Cream 1 applic TOP BID #2 tube 05/29/16 12/26/16 Rx [Lotrisone Cream] Oxycodone/APAP 10 mg/325 mg 1 each PO Q4H PRN PRN #30 tablet 05/29/16 12/26/16 12/25/16 Rx [Percocet-10] Promethazine [Phenergan] 25 mg PO Q6H PRN PRN #5 tablet 05/29/16 12/26/16 Rx Butalbital/Acetaminophen 1 each PO Q4H PRN PRN 07/30/16 12/26/16 10/14/16 History [Butalbital-Acetaminophn 50-325] Carvedilol [Coreg] 12.5 mg PO BID #60 tablet 08/03/16 12/26/16 12/25/16 Rx Hydralazine [Apresoline] 50 mg PO Q8H #90 tablet 08/03/16 12/26/16 12/25/16 Rx Polyethylene Glycol 3350 [Miralax] 17 gm PO BID #5 08/31/16 12/26/16 12/25/16 Rx Bisacodyl [Dulcolax] [address] QHS PRN 09/08/16 12/26/16 Unknown History Naloxegol Oxalate [Movantik] 12.5 mg PO ACB tablet 09/13/16 12/26/16 12/25/16 Rx Acetaminophen [Tylenol] 650 mg PO Q4H PRN 10/12/16 12/26/16 10/13/16 History Mag Hydrox/Al Hydrox/Simeth 10 ml PO Q6H PRN 10/12/16 12/26/16 Unknown History [Oriana-Lanta Liquid] Omeprazole 20 mg PO BID 10/12/16 12/26/16 12/25/16 History Calcium Carbonate Chew [Tums] 500 mg PO AC PRN 12/26/16 12/26/16 Unknown History Guaifenesin 200 mg PO Q6HR PRN 12/26/16 12/26/16 Unknown History Pregabalin [Lyrica] 50 mg PO BID 12/26/16 12/26/16 12/26/16 History Zolpidem [Ambien] 5 mg PO QHS 12/26/16 12/26/16 12/24/16 History Acetaminophen [Tylenol] 650 mg PO Q6H PRN PRN #0 tablet 12/28/16 Unknown Rx Aspirin 81 mg PO DAILY chewtab 12/28/16 Unknown Rx - History of Present Illness -Gen Adult Nature of Presenting Problems: Pt is a 61 yowf who presents to ER via EMS from dialysis clinic per Dr. Pitt after pt was dialyzed. Pt is poor historian but states that she became drowsy and lethargic while at dialysis and was sent to ER. On arrival, pt reports that she is still weak/lethargic, but reports that her sxs are mildly improving. Pt denies any SOB/CP/F/N/V/D. Location of Pain/Injury: reports: generalized Pain Radiation: reports: no radiation Quality of Pain: reports: other (weakness) Severity: reports: moderate Onset/Duration: reports: just prior to arrival Timing: reports: still present, improving Context/Activities at Onset: reports: other (dialysis) Associated Symptoms: reports: fatigue, weakness, trouble walking. denies: chest pain, diarrhea, dizziness, loss of appetite, muscle aches, nausea, shortness of breath Similar Symptoms Previously?: Yes Recently seen or treated by another doctor?: Yes Review of Systems - Adult - REVIEW OF SYSTEMS - ADULT Constitutional: reports: fatique, other (weakness). denies: chills, fever, night sweats, weight gain, weight loss Eyes: reports: no symptoms reported Ears, Nose, Mouth & Throat: reports: no symptoms reported Cardiovascular: denies: chest pain, irregular heart rate, palpitations, poor circulation, syncope Respiratory: denies: cough, dyspnea on exertion, excessive sputum production, shortness of breath, wheezing Gastrointestinal: reports: no symptoms reported Genitourinary: reports: no symptoms reported Musculoskeletal: reports: no symptoms reported Integumentary: reports: no symptoms reported Neurological: reports: no symptoms reported Psychiatric: reports: no symptoms reported Endocrine: reports: no symptoms reported Hematologic/Lymphatic: reports: no symptoms reported Allergic/Immunologic: reports: no symptoms reported All Other Systems: Reviewed and Negative Past History - Adult - PAST MEDICAL HISTORY-ADULT Review of Records: reports: Nursing Assessment Review, Medications Reviewed Cardiovascular: reports: HTN, murmur Respiratory: reports: asthma Gastrointestinal: reports: GERD Obstetrical/Gynecological: reports: other (cervical cancer single) Genitourinary: reports: dialysis (T/Thr/Sat), ESRD, kidney disease Musculoskeletal: reports: arthritis, chronic pain (back), fibromyalgia Neurological: reports: headaches/migraines, other (idiopathic neuralgia ) Endocrine/Immune: reports: Diabetes Other Conditions: reports: cataract/glaucoma - PRIOR SURGERIES/PROCEDURES Surgical/Procedure History: reports: hysterectomy, indwelling device, tonsillectomy, other (abdominoplasty/carpal tunnel/ r port chest) - PRIOR HOSPITALIZATIONS Prior Hospitalizations: reports: for similar symptoms - IMMUNIZATION STATUS Childhood Immunizations: See Nurse Assessment Flu Vaccine: See Nurse Assessment Physical Exam-General - PHYSICAL EXAM-ADULT Initial Vital Signs Reviewed: Yes - CONSTITUTIONAL General Appearance: appears well, alert, mild distress, obese, lethargic - EYES Eyes: PERRL/EOMI, pink conjunctivae - RESPIRATORY Respiratory: chest non-tender, lungs clear, normal breath sounds, no pleuratic chest pain, no respiratory distress, no accessory muscle use. negative: respiratory distress, decreased breath sounds, accessory muscle use, wheezing - CARDIOVASCULAR Cardiovascular: normal peripheral pulses, regular rate, rhythm, other (BP (200/ 88)). negative: bradycardia, tachycardia, irregularly irregular - GASTROINTESTINAL (ABDOMEN) Abdominal Exam: normal bowel sounds, non tender, soft, no organomegaly, no pulsatile mass. negative: guarding, rebound, tenderness - MUSCULOSKELETAL Extremity: non-tender, no calf tenderness, normal capillary refill, pelvis stable, pedal edema (3+ pitting in lower extremities). negative: normal range of motion, no pedal edema - SKIN Integumentary: normal color, normal turgor, warm/dry - PSYCHIATRIC Psych/Mental Status: normal thought content, normal thought process, oriented x 3, depressed affect. negative: normal mood/affect Progress - PLAN OF CARE/RESULTS Progress/Plan/Lab Results: Vital Signs - 8 hr 12/25/16 19:28 Temperature 98.1 F Pulse Rate 76 Respiratory Rate 16 Blood Pressure 178/90 O2 Sat by Pulse Oximetry 99 Orders Category Date Time Status Cardiac Monitoring DIRECTED Care 12/25/16 19:26 Active Oxygen Therapy- ED Nursing DIRECTED Care 12/25/16 19:26 Active Saline Loc NOW Care 12/25/16 19:26 Active CHEST-1 VIEW [RAD] Stat Exams 12/25/16 19:28 Ordered CBC WITH ELECTRONIC DIFF [HEME] Stat Lab 12/25/16 19:26 Ordered CK PROFILE [SP CHEM] Stat Lab 12/25/16 19:26 Ordered COMPREHENSIVE METABOLIC PANEL [CHEM] Stat Lab 12/25/16 19:[address] Or[address] D-D[address]ER [address] [COAG] Stat Lab 12/25/16 19:26 Ordered MAGNESIUM [CHEM] Stat Lab 12/25/16 19:26 Ordered PRO B-NATRIURETIC PEPTIDE Stat Lab 12/25/16 19:[address]IME WITH INR PL [COAG] Stat Lab 12/25/16 19:[address] [COAG] Stat Lab 12/25/16 19:26 Ordered TROPONIN T Stat Lab 12/25/16 19:26 Ordered EKG [EKG] Stat Ther 12/25/16 19:26 Ordered Result Diagrams: 12/26/16 10:21 12/27/16 05:45 - EKG 1 Time of EKG reading by physician:: 19:48 EKG Read and Signed by:: Angel Iglesias EKG Interpretation (*Must complete 3 of following elements*): Abnormal ( Moderate voltage criteria for LVH, may be normal variant; Junctional ST depression, probably normal) Rate: 75 Rhythm: NSR - XRAY 1 XRAY: Bilateral XRAY Study: Chest Impression: See EMR Report XRAY Interpretation: Cardiomegaly, otherwise normal - Dr. Iglesias - CONSULTS/PCP/HOSPITALIST Notification #1 *Consult/PCP/Hospitalist*: Dr. Singh (Hospitalist) Time Discussed: 22:16 Consult Disposition: Admit Departure - Departure Date of Disposition Decision: 12/25/16 Time of Disposition Decision: 21:55 DIAGNOSIS: Hyperkalemia, ESRD (end stage renal disease) Altered mental status Qualifiers: Altered mental status type: unspecified Qualified Code(s): R41.82 - Altered mental status, unspecified Disposition: ADMITTED INPATIENT 09 Certified Medical Emergency: Emergent Condition: Stable - Critical Care Note This patient required my direct & personal management of CC.: No Attestation - Physician/ JOE Attestation Patient care was provided by Advanced Practice Provider:: No The physician spent face to face time with patient:: Yes Advanced Practice Provider documentation review:: Supervising physician onsite and consulted in the evaluation and care of this patient. The physician did have a face to face encounter with the patient. This chart was documented by the indicated scribe, (Mando Aranda Scribe) and accurately reflects the services I performed and decisions made by me, Angel Iglesias MD, as attested by the provider's signature.
--- NOTE | 2016-12-25 20:26 | Diag Imaging Result Doc PS360 ---
EXAM: CHEST-1 VIEW HISTORY: sob TECHNIQUE: Erect AP portable at 1949 COMMENT: There is cardiomegaly. Compared to the previous study of 10/02/2016 there is been no significant change in the appearance of the chest. IMPRESSION: Stable chest. Electronically signed by Pedro Luis De La Fuente 12/25/2016 8:22 PM
[2016-12-25 21:14] LABS: BASO% 0.1 % (0.0-0.8); EOS# 0.06 X1000 (0.0-0.7); EOS% 0.8 % (0.0-10.0); HEMATOCRIT 34.9 % (37.0-47.0); IMM GRAN# 0.05 X1000 (0.0-0.04); IMM GRAN% 0.7 % (0.0-0.5); LYMPH# 0.32 X1000 (1.2-3.4); LYMPH% 4.4 % (20.5-51.1); MANUAL DIFF NEEDED? NO; MCH 30.5 PG (27-31); MCHC 31.5 g/dL (33-37); MCV 96.7 FL (81-99); MONO# 0.41 X1000 (0.11-0.59); MONO% 5.7 % (1.7-9.3); MPV 10.5 FL (7.4-10.4); NEUT% 88.3 % (42.2-75.2); PLT 86 X1000 (130-400); RBC 3.61 XMIL (4.2-5.4)
[2016-12-25 21:19] LABS: INR 1.02; PROTIME 10.7 Seconds (9.2-11.7)
[2016-12-25 21:31] LABS: ALBUMIN 3.4 g/dL (3.5-5.0); CALCIUM 8.5 mg/dL (8.8-10.2); MAGNESIUM 2.3 mg/dL (1.5-2.7); POTASSIUM 5.3 mmol/L (3.5-5.1); TOTAL BILIRUBIN 0.25 mg/dL (0.20-1.00)
[2016-12-26] MEDS ORDERED: DILAUDID IV ONE (00:02)
[2016-12-26] MEDS ORDERED: ZOFRAN IV ONE (00:07)
[2016-12-26] MEDS ORDERED: DILAUDID ONE (00:19)
--- NOTE | 2016-12-26 05:15 | EKG Report ---
Test Performed on : 12/25/2016 7:47:20 PM Test Reason : CHEST PAIN Blood Pressure : / mmHG Vent. Rate : 075 BPM Atrial Rate : 075 BPM P-R Int : 156 ms QRS Dur : 088 ms QT Int : 410 ms P-R-T Axes : 044 -10 043 degrees QTc Int : 457 ms Normal sinus rhythm. Moderate voltage criteria for LVH, may be normal variant Junctional ST depression, probably normal Borderline ECG When compared with ECG of 28-SEP-2016 10:57, No significant change was found Unconfirmed Result
[2016-12-26] MEDS ORDERED: TIGHT: 0.2 ML/HR MISC PRN (06:57)
[2016-12-26] MEDS ORDERED: NS 2,000 ML MISC PRN (06:57)
[2016-12-26] MEDS ORDERED: HEPARIN IV PRN (06:57)
[2016-12-26] MEDS ORDERED: TYLENOL PO PRN (08:09)
[2016-12-26] MEDS ORDERED: PERCOCET-10 PO PRN (08:15)
[2016-12-26] MEDS ORDERED: NS 2,000 ML ONE (08:24)
[2016-12-26] MEDS ORDERED: HEPARIN ONE ×2 (08:24→08:46)
[2016-12-26 10:29] LABS: MANUAL DIFF NEEDED? NO
[2016-12-26 10:37] LABS: BASO% 0.5 % (0.0-0.8); EOS# 0.35 X1000 (0.0-0.7); EOS% 5.5 % (0.0-10.0); HEMATOCRIT 33.2 % (37.0-47.0); HEMOGLOBIN 10.4 g/dL (12.0-16.0); IMM GRAN# 0.04 X1000 (0.0-0.04); IMM GRAN% 0.6 % (0.0-0.5); LYMPH# 0.75 X1000 (1.2-3.4); LYMPH% 11.9 % (20.5-51.1); MCH 30.4 PG (27-31); MCHC 31.3 g/dL (33-37); MCV 97.1 FL (81-99); MONO# 0.52 X1000 (0.11-0.59); MONO% 8.2 % (1.7-9.3); NEUT% 73.3 % (42.2-75.2); PLT 93 X1000 (130-400); RBC 3.42 XMIL (4.2-5.4)
[2016-12-26 11:11] LABS: ALBUMIN 3.2 g/dL (3.5-5.0); CALCIUM 8.4 mg/dL (8.8-10.2); POTASSIUM 5.4 mmol/L (3.5-5.1)
--- NOTE | 2016-12-26 11:16 | HISTORY AND PHYSICAL ---
PRIMARY CARE PROVIDER: Dr. Graves at [facility] in [place]. FLOOR DIRECTOR: Dr. Santamaria DATE AND TIME OF HISTORY AND PHYSICAL: 12/26/16 at 0100. CHIEF COMPLAINT: Weakness. HISTORY OF PRESENT ILLNESS: Ms. Harley is a 61-year-old, female who has a history of end-stage renal disease on hemodialysis, followed by Dr. Santamaria. She is currently a resident at [facility] in [place]. She has dialysis on Mondays, Wednesdays, and Fridays. The patient states that over the past few months now that she has had increased problems with weakness. She states that over the past week, this has gotten worse. Normally, she is able to ambulate with a walker, though after this past week, has only been able to use a wheelchair only. She also complains of some worsening edema as well. She reports "I am more swollen all over". She most noticeably has increased edema in bilateral lower extremities as well as her right breast. She states that she has been having problems with right breast swelling and edema for the past several months. She denies any pain or tenderness upon palpation of her right breast, as well as she denies any discharge as well. She denies any headache, dizziness, chest pain, shortness of breath, cough, abdominal pain, nausea, vomiting, or diarrhea. She states that her last bowel movement was yesterday morning. She denies any hematochezia or melena. She denies any fever , body aches, or chills. According to the patient and the ER staff, she did have an elevated potassium this morning of 6.5 prior to dialysis. The patient reports that she was able to stay for her entire dialysis treatment, though sometime while she was still at the dialysis facility, she reportedly had an episode where she became very drowsy and lethargic, and was sent to the ER for further evaluation. Upon arrival in the ER, she was alert and oriented, and was only complaining of back pain which she does have chronically. Laboratory results did reveal mild hyperkalemia. She was also note dot have an elevated troponin. The patient denied any chest pain or shortness of breath at this time. This could be likely related to her renal disease. She was also found to have an elevated D-dimer. As previously mentioned, she is not having any shortness of breath. She was not hypoxic. Vital signs are within normal limits. At this time, she will be admitted for further treatment and evaluation of her weakness as well as her end-stage renal disease. REVIEW OF SYSTEMS: A 12 point review of systems was conducted with the patient. All were negative except for pertinent positives mentioned above in the HPI. PAST MEDICAL HISTORY: 1. End-stage renal disease, on hemodialysis. Followed by Dr. Santamaria. 2. Morbid obesity. 3. Depression. 4. History of type 2 diabetes. At this time, it does not appear that the patient is on any home medications for this at this time and is likely diet controlled. 5. Chronic anemia. 6. History of cervical cancer. 7. Constipation. 8. Diabetic gastroparesis. 9. Chronic low back pain. 10. Hypertension. PAST SURGICAL HISTORY: 1. Lumbar laminectomy. 2. Left Vas-Cath placement. 3. History of previous right arm fistula. 4. Right wrist surgery. 5. Cholecystectomy. 6. Hysterectomy. 7. Abdominoplasty. 8. Left tibia surgery. 9. Bilateral CTR. 10. Right chest port placement. SOCIAL HISTORY: The patient has a previous history of tobacco use. She has no known alcohol or illicit drug use. She is currently a resident at [facility] in [place]. FAMILY HISTORY: Significant for CVA, diabetes, colon polyps, and atrial fibrillation. ALLERGIES: Patient has allergies to Talwin, Maxzide, and Nubain. HOME MEDICATIONS: At this time, we still are awaiting a medication administration record from [facility] to be faxed and confirmed. Once this is done, we will reconcile the patient's home medications. DIAGNOSTIC DATA/LABORATORY RESULTS: White blood cell count is 7.21, hemoglobin 11, hematocrit 34, platelet count is 86,000. PT is at 10.7, INR 1.02, PTT is 96.9. D-dimer 1.6. Sodium 134, potassium 5.3, chloride 93, bicarbonate 24, BUN 58, creatinine 5.8, glucose 151 , calcium 8.5, magnesium 2.3. Liver function tests within normal limits. CK 75, troponin 0.381. ProBNP is 15,909. Chest one view showed cardiomegaly, through there has been no significant change noted compared to previous study on October 02, 2016. This is per radiology. EKG showed normal sinus rhythm with moderate voltage criteria for LVH. This may be a normal variant. The ventricular rate was 75, QTc was 457. PHYSICAL EXAMINATION: VITAL SIGNS: Temperature 98.6 degrees, heart rate 75, respirations 20, blood pressure is 126/55, oxygen saturation is 99% on nasal cannula at 2 L. GENERAL: Ms. Harley is a pleasant, 61-year-old, female who is resting on the stretcher. She was in no acute distress. She was awake, alert, and able to answer all questions appropriately. HEENT: Head is atraumatic, normocephalic. Pupils are equal, round, reactive to light, were 3 mm bilaterally and brisk. Subconjunctivae were pink. Oral mucosa was moist. Oropharynx is clear. Neck is supple. Trachea midline. CARDIOVASCULAR: Patient has normal S1 and S2. No murmurs, gallops, or rubs appreciated, with a regular rate and rhythm. PULMONARY: The patient has symmetrical chest expansion bilaterally. Lung sounds are clear to auscultation in bilateral full jones. ABDOMEN: Soft, nontender, and nondistended. The patient does have a protuberant abdomen noted. Bowel sounds were present in all 4 quadrants and normoactive. EXTREMITIES: The patient does have edema noted to bilateral lower extremities from approximately knee down. There is 2+ pitting edema, though her right leg does seem to have more swelling noted than her left. Pulse, motor, and sensory are intact in all extremities. Pedal pulses are 3+ bilaterally. Capillary refill was less than 3. INTEGUMENTARY: The patient's skin is pink, warm, dry, and intact. No lesions or sores noted. NEUROLOGICAL: The patient is alert and oriented to person, place, and time. Cranial nerves 2-12 appear to be grossly intact. She has equal hand grasps and equal muscle strength bilaterally, though there does appear to be some generalized weakness. ASSESSMENT AND PLAN: 1. Weakness. The patient has had increased problems with weakness over the past few months, though she states that over the past week, this has worsened. This is of uncertain etiology. She denies any headache, dizziness, lightheadedness, palpitations, chest pain , or shortness of breath. We will continue with the series of cardiac enzymes. The patient does have an elevated troponin, though this could be likely secondary to her renal disease. Other than her reported weakness, she does not have any other neurological deficits at this time and this weakness is generalized. We will obtain a physical therapy evaluation and continue to follow, though this could possibly also be medication related. 2. Hypertension. At this time, the patient's blood pressure is within normal limits. It was slightly elevated in the emergency room, through the patient was in quite a bit of pain due to her lower back pain. After a dose of Dilaudid, it did come down within normal range. We are awaiting her home medication list to be verified and we will likely continue her home medications for hypertension. 3. Mild hyperkalemia. Her potassium level was 5.3. At this time, we will just monitor this. She will be placed on telemetry. We will repeat a renal profile in the morning as well as it was reported by the emergency room that Dr. Santamaria does intend to do dialysis on the patient again in the morning, and will continue to follow. 4. End-stage renal disease, currently on dialysis Mondays, Wednesdays, and Fridays. We have placed a consult with Dr. Santamaria and we will await his evaluation and further recommendations for management. 5. Chronic pain. We will continue the patient's pain medications once her home medication list has been updated. 6. History of diabetes mellitus. It does not appear at this time that the patient takes any diabetic medications. At this present, we will control this with diet and just do close monitoring of her glucose levels with fingerstick blood sugars. We will implement a sliding scale insulin if needed. She will be placed on the medical floor with telemetry. She will have vital signs every 4 hours. We will do strict intake and output. Given the patient's lower extremity worsening edema and elevated D-dimer, we have decided to go ahead and do a venous Doppler of bilateral lower extremities to rule out a deep venous thrombosis. Due to this, we will not place sequential compression devices or BONIFACIO hose on until this test results is back and we did not decide to any anticoagulants for deep venous thrombosis prophylaxis due to the patient's PTT was elevated this morning. We will await results of venous Doppler and repeat PTT and continue to follow. Further orders and recommendations pending hospital course, diagnostic studies, and physician evaluation. Dictated by WILMER Barillas for Natasha Singh MD cc: Natasha Singh MD [facility]
--- NOTE | 2016-12-26 11:23 | CONSULTATION ---
DATE OF CONSULTATION: 12/26/2016 REASON FOR CONSULTATION: Assistance with management. HISTORY OF PRESENT ILLNESS: Ms. Harley is a 61-year-old white female, who is well known to us. She has end-stage kidney disease secondary to diabetes. She also has multiple medical problems, including anemia, chronic pain syndrome, hypertension, COPD/asthma, heart disease. She has had frequent admissions to [facility] typically related to wounds, hyperkalemia, volume overload, intractable nausea and vomiting. Her most recent admission was for nausea and vomiting and hyperkalemia and she missed her routine dialysis. She presented to dialysis yesterday and says she was "out of it." The nurses called me and said that she was complaining of severe swelling and shortness of breath and weakness, and she had 16 kg above her dry weight. After dialysis, she was directed to the emergency room where she was subsequently admitted to the hospital. This morning her primary complaint is of low back pain. This is a frequent finding for her and she takes narcotic pain medication on a regular basis to manage it. She does have frequent nausea and vomiting, but this problem has not been worse than baseline of late. No chills, fever, sweats, night sweats. Bowel movements are slow, but no change. Swelling is significant. PAST MEDICAL HISTORY: As listed above. CURRENT MEDICATIONS: Vitamin D, Soma, pregabalin, fluoxetine, metoclopramide, zolpidem, amlodipine, clotrimazole, oxycodone, promethazine, butalbital, clonidine, erythropoietin, carvedilol, hydralazine, MiraLAX, Dulcolax, Movantik, omeprazole, Tylenol. ALLERGIES: Pentazocine, triamterene, nalbuphine. SOCIAL HISTORY: She resides in [facility] jail facility in [place]. No alcohol or tobacco. FAMILY HISTORY: Otherwise noncontributory. PHYSICAL EXAMINATION: Vital Signs: Blood pressure 136/64, heart rate 78, respirations 16, afebrile. General: She is in no acute distress. Skin: Warm and dry. Eyes: Conjunctivae are pink. Neck: Neck veins are not appreciated. Trachea is midline. Heart: Regular with systolic murmur. Lungs: Have equal breath sounds. Shallow. A few scattered wheezes. Abdomen: Obese and soft. Bowel sounds are present. No organomegaly is palpable. Extremities: Have 3+ edema. No clubbing or cyanosis. LABORATORY DATA: Sodium 134, potassium 5.3, chloride 93, bicarbonate 24, BUN 58, creatinine 5.8, hemoglobin 11.0. IMPRESSION: 1. End-stage kidney disease with volume overload. Modest hyperkalemia. She will have daily dialysis in order to manage her volume status and shortness of breath. 2. Pain management. Will reorder her hydromorphone. 3. Hyperkalemia. Treat with dialysis. 4. Anemia in target. Continue her erythropoietin. cc: Yaya Santamaria MD
--- NOTE | 2016-12-26 13:11 | PROGRESS NOTE ---
DATE: 12/26/2016 PRIMARY CARE PHYSICIANS: Dr. Graves in [place], Dr. Santamaria. HISTORY: She complained of weakness. She is a 61-year-old with history of end-stage renal disease on hemodialysis, followed by Dr. Santamaria, currently a resident [facility]. She is on dialysis Mondays, Wednesdays, and Fridays. States that over the last few months she has had increased problems with weakness. States that over the past week she had gotten worse. Normally she can ambulate with a walker, though the last past week she has been able to use a wheelchair only. Complains of worsening edema and more swollen all over. She states that she has been having problems with right breast swelling and edema for several months. Denies any pain or tenderness on palpation with the right breast. Denies any discharge. PAST MEDICAL HISTORY: 1. End-stage renal disease followed by Dr. Santamaria. 2. Morbid obesity. 3. Depression. 4. History of diabetes mellitus type 2. 5. Chronic anemia. 6. History of cervical cancer. 7. Constipation. 8. Diabetic gastroparesis. 9. Chronic low back pain. 10. Hypertension. SURGICAL HISTORY: Lumbar laminectomy, left Vas-Cath placement, history of previous right arm fistula, right wrist surgery, cholecystectomy, hysterectomy, abdominal plasty, left tibia surgery bilateral, CTR right chest port placement. She was admitted for weakness of uncertain etiology. Denies any headache, dizziness, lightheadedness, palpitations. Did not see any focal neurologic deficits. We will get physical therapy to evaluate. ASSESSMENT AND PLAN: 1. End-stage renal disease. Continue dialysis. 2. She may have some volume overload. 3. Hypertension. Continue to watch blood pressure. 4. Hyperkalemia. Potassium is 5.3, with is mild. She is on telemetry and I think adjustments were made with dialysis. 5. Chronic pain syndrome. 6. Diabetes mellitus type 2. We will follow pattern sugars. 7. I think they are going to do a Doppler of bilateral lower extremities. She had an elevated D- dimer. She was put on compression, BONIFACIO hoses. 8. Orders reviewed. I do not see any change at this point. She is scheduled for dialysis today. cc: Taqueria Vo MD
[2016-12-26] MEDS: DILAUDID IV PRN ×2 (13:34→20:04)
[2016-12-26] MEDS: ZOFRAN IV PRN (13:35)
--- NOTE | 2016-12-26 20:40 | CONSULTATION ---
DATE OF CONSULTATION: 12/26/2016 IMPRESSION: 1. Troponin is elevated above normal range in setting of volume overload and end-stage renal disease. The patient has not had any chest discomfort or dyspnea. ECG is benign. Although nonspecific elevation of troponins is likely related to volume overload in the setting of renal failure, she has a multitude of coronary risk factors and repeat screening with myocardial perfusion imaging would be prudent. In the event that significant coronary disease is discovered, she is at best a marginal candidate for surgical intervention and certainly is a candidate for percutaneous intervention which she is willing to consider. 2. Volume overload precipitating current hospitalization. 3. End-stage renal disease requiring hemodialysis for the past year. 4. Type 2 diabetes mellitus with associated peripheral neuropathy and gastroparesis. 5. Morbid obesity. 6. Depression. 7. Hypertension. 8. Family history of coronary disease. RECOMMENDATIONS: 1. Lexiscan myocardial perfusion imaging. 2. Empiric aspirin daily as tolerated. 3. Fasting lipid profile and consider statin therapy. HISTORY: This 61-year-old white female with past history of obesity, longstanding type 2 diabetes mellitus, hypertension and end-stage renal disease requiring hemodialysis for the past year was admitted with volume overload. She just dialyzed yesterday. Late last night she relates she got severe fluid overload. Specifically, she relates severe edema. She denies dyspnea or chest discomfort. She recalls having low blood pressure as dialysis progressed and limited further dialysis. She had obvious volume overload and was admitted from the ER. She has dialysis today and is improved. She had troponins elevated above the normal range prompting Cardiology consultation. She had noninvasive cardiac workup a year ago which was reportedly negative. She is not very active and resides in correction facility. She ambulates on a very limited basis. PAST MEDICAL HISTORY: 1. Obesity. 2. Longstanding type 2 diabetes mellitus complicated by peripheral neuropathy and gastroparesis. 3. Hypertension. 4. End-stage renal disease requiring hemodialysis for the past year. 5. Chronic anemia. 6. Depression. 7. History of cervical cancer. 8. Chronic low back pain. PAST SURGICAL HISTORY: Includes lumbar laminectomy, left Vas-Cath placement, previous right arm fistula, right wrist surgery, cholecystectomy, hysterectomy, abdominoplasty, left tibia surgery, bilateral CTR and right chest port placement. ALLERGIES: She is allergic or intolerant of Talwin, Maxzide and Nubain. MEDICATIONS: As listed. SOCIAL HISTORY: She currently resides at [facility] in [place]. She has history of previous smoking but quit 29 years ago. She does not use alcohol. FAMILY HISTORY: Positive for coronary disease. REVIEW OF SYSTEMS: Pulmonary: Negative. Gastrointestinal: Noteworthy for gastroparesis symptoms and some gastroesophageal reflux. Constitutional: Negative. The remainder of review of systems negative/noncontributory with 14 total systems reviewed. PHYSICAL EXAMINATION: General: Reveals a obese, older white female in no distress. Vital signs: Blood pressure 158/57, heart rate 71 and regular, oxygen saturation 99% on nasal cannula oxygen at 2 L/minute. HEENT: Extraocular movements intact. Mucous membranes moist. Neck: Supple without jugular venous distention. There are no carotid bruits. Chest: Clear to auscultation. Cardiac Exam: Reveals a regular rate and rhythm without appreciable murmur or gallop. Abdomen: Soft, nontender. Bowel sounds are normal. Extremities: Without edema. Neurologic Exam: Reveals her to be alert, fully oriented. Speech is fluent. She moves all 4 extremities equally well. Skin: Warm, dry. Psychiatric: Reveals her mood to be appropriate. DIAGNOSTIC DATA: ECG demonstrates normal sinus rhythm and voltage criteria for left hypertrophy. LABORATORY DATA: Includes a initial troponin of 0.381, followup troponin 0.447. cc: Pola Rothman MD
[2016-12-27] MEDS: DILAUDID IV PRN ×5 (01:10→23:30)
[2016-12-27] MEDS: ASPIRIN PO SCH ×2 (03:20→10:19)
[2016-12-27] MEDS: AMBIEN PO SCH ×2 (03:20→23:24)
[2016-12-27] MEDS ORDERED: HEPARIN ONE (06:40)
[2016-12-27] MEDS ORDERED: NS 2,000 ML ONE (06:40)
[2016-12-27 06:47] LABS: HDL 55 mg/dL (45-65); LDL 77 mg/dL; TRIGLYCERIDES 104 mg/dL (35-135); VLDL 21 mg/dL
[2016-12-27] MEDS ORDERED: HEPARIN IV PRN (06:55)
[2016-12-27] MEDS ORDERED: TIGHT: 0.2 ML/HR MISC PRN (06:55)
[2016-12-27] MEDS ORDERED: NS 2,000 ML MISC PRN (06:55)
[2016-12-27 07:29] LABS: POTASSIUM 5.4 mmol/L (3.5-5.1)
--- NOTE | 2016-12-27 07:33 | Diag Imaging Result Doc PS360 ---
CHEST-PORTABLE - 12/27/2016 INDICATION: fluid overload TECHNIQUE: COMPARISON: 12/17/2016 FINDINGS: Stable chest port and dialysis catheter. Stable cardiomegaly. Pulmonary vascularity is top normal. Lung volumes are low. No infiltrates. IMPRESSION: Cardiomegaly. No acute disease or change from prior. Electronically signed by Kushal Green 12/27/2016 7:30 AM
[2016-12-27] MEDS ORDERED: LEXISCAN ONE (08:27)
[2016-12-27] MEDS ORDERED: AMINOPHYLLINE ONE (08:55)
[2016-12-27] MEDS ORDERED: EPOGEN SUBQ SCH (09:00)
[2016-12-27] MEDS: ZOFRAN IV PRN (10:15)
--- NOTE | 2016-12-27 15:15 | PROGRESS NOTE ---
DATE: 12/27/2016 SUBJECTIVE: Patient continues without chest discomfort or dyspnea. OBJECTIVE: Vital Signs: Blood pressure 122/77, heart rate 96 and regular. Oxygen saturation 94% on room air. There is no significant jugular venous distention. Chest: Clear to auscultation. Cardiac Exam: Reveals a regular rate and rhythm without appreciable murmur or gallop. There is no evidence of peripheral edema. DIAGNOSTIC STUDIES: Lexiscan sestamibi study negative for evidence of inducible myocardial ischemia. IMPRESSION: 1. Troponin elevated above normal range in setting of volume overload and end-stage renal disease. Findings nonspecific. No chest pain or dyspnea. ECG benign. Stress myocardial perfusion imaging negative for evidence of inducible myocardial ischemia. Prognosis stable. 2. Volume overload precipitating current hospitalization. This clinically is improved. 3. End-stage renal disease requiring hemodialysis for the past year. 4. Type 2 diabetes mellitus. 5. Morbid obesity. 6. Depression. 7. Hypertension. RECOMMENDATIONS: Continue empiric aspirin daily as tolerated. cc: Pola Rothman MD
--- NOTE | 2016-12-27 16:59 | PROGRESS NOTE ---
DATE: 12/27/2016 SUBJECTIVE: Ms. Harley reports she feels better. Had a fairly uneventful night. Remains afebrile. OBJECTIVE: Vital signs: Temperature 98.1 degrees, pulse 87, respirations 18, blood pressure 145/76. Lungs: Clear in all lung jones. Cardiovascular exam: Regular rhythm and rate without murmur or S3. Abdomen: Soft. Skin is warm and dry. Genitourinary: Urine output over 1 L. LABORATORY AND X-RAY DATA: Sodium 138, potassium 5.4, chloride 96, bicarb 26, BUN 53, creatinine 5.4. She is scheduled for dialysis this morning. ASSESSMENT AND PLAN: 1. Mild troponin elevation. I do not believe there is any sign of cardiac ischemia. I suspect the troponin elevation from her renal insufficiency. EKG is benign, and stress myocardial perfusion scan negative for evidence of inducible ischemia. 2. Volume overload precipitating current hospitalization. This is better. Hopefully home soon. 3. End-stage renal disease, requiring hemodialysis. 4. Diabetes mellitus type 2. 5. Morbid obesity. 6. Depression. 7. Hypertension. We will see if maybe we are close to going home. Chest x-ray repeated today, showed cardiomegaly, no acute disease or change from prior. cc: Taqueria Vo MD
--- NOTE | 2016-12-28 04:00 | PROGRESS NOTE ---
DATE: 12/27/2016 SUBJECTIVE: She had some trouble with dialysis today. Her blood pressure dropped and became somewhat ill-appearing and ashen. Her dialysis was interrupted prematurely. OBJECTIVE: Vital Signs: Blood pressure 122/77, heart rate 96, respiration 18, afebrile. General: Currently skin is pink and moist. She is awake, alert. She is on room air. She is conversant and not complaining of any chest pain, shortness of breath or other symptoms. Skin: Warm and dry. Eyes: Conjunctivae are pink. Neck: Neck veins are not appreciated. Heart: Regular with systolic murmur. Lungs: Have equal breath sounds. No crackles. Abdomen: Obese and soft. Bowel sounds are present. Extremities: Have 1+ edema. No clubbing or cyanosis. LABORATORY DATA: Sodium 138, potassium 5.4, chloride 96, bicarbonate 26, BUN 53, creatinine 5.4, hemoglobin 10.4. IMPRESSION: 1. Shortness of breath, improved. Her a stress Cardiolite was negative for reversible ischemia. No overt pulmonary edema on her chest x-ray. She remains above her dry weight. We will attempt to dialyze her again tomorrow. We may not achieve her previous dry weight, however. 2. Electrolytes and acid-base are in target. 3. Anemia is in target. Continue erythropoietin. cc: Yaya Santamaria MD
--- NOTE | 2016-12-28 04:04 | Diag Imaging Result Document ---
PROCEDURE NAME: MYOCARDIAL PERF SCAN, STR/REST - 12/27/2016 SUMMARY: The patient was administered 15.3 millicuries of technetium-99m sestamibi, after which resting cardiac images were obtained. The patient was subsequently administered Lexiscan, after which the heart rate went from 81 beats per minute to 88 beats per minute. The blood pressure went from 153/80 to 200/108. With Lexiscan, the patient reported moderate chest pressure which resolved after intravenous aminophylline 125 mg. Following the administration of Lexiscan, the patient was administered 45.8 millicuries of technetium-99m sestamibi, after which gated stress cardiac images were obtained. Baseline ECG demonstrates sinus rhythm and was within normal limits. With Lexiscan, there were no diagnostic ST-segment changes. SPECT images were reconstructed in the short, horizontal long, and vertical long axes. Review of these images demonstrated homogeneous uptake of radiopharmaceutical in both stress and resting images. Gated images demonstrate a calculated left ventricular ejection fraction of 83% with symmetrical wall motion/thickening. CONCLUSIONS: 1. Adequate response to Lexiscan. 2. Clinically, the patient experienced moderate chest pressure with Lexiscan. 3. Electrocardiographically negative for Lexiscan induced myocardial ischemia. 4. Normal Lexiscan sestamibi images. cc: Pola Rothman MD
[2016-12-28] MEDS: DILAUDID IV PRN ×4 (05:58→15:26)
[2016-12-28] MEDS: ASPIRIN PO SCH (08:39)
[2016-12-28] MEDS: ZOFRAN IV PRN (09:54)
[2016-12-28 12:00] VITALS: BP 113/67
--- NOTE | 2016-12-28 13:58 | DISCHARGE SUMMARY ---
ADMISSION DATE: 12/26/2016 DISCHARGE DATE: 12/28/2016 HISTORY: This is a 61-year-old, patient of Dr. Santamaria, is followed by Dr. Graves in [facility]. She has a history of end-stage renal disease, on hemodialysis 3 times a week. Followed by Dr. Santamaria. Currently a resident in [facility]. Gets dialysis Sunday, Wednesdays, and Fridays. States that over the past few months she has had increased problems with weakness. States that over the past week it got worse. Normally she is able to ambulate with a walker, though in the past week has only been able to use a wheelchair only. She also complains of some worsening edema as well. Reports I am swollen all over. Most noticeably has increased edema in bilateral lower extremities, as well as the right breast. She states that she has been having problems with her right breast swelling and edema for the past several months. She denies any pain or tenderness upon palpation of her right breast as well. She denies any discharge from the right breast. Denies headache, dizziness, chest pain, shortness of breath, cough, abdominal pain, nausea, vomiting, or diarrhea. She stated that her last bowel movement was the day before and denied any hematochezia or melena. According to ER staff, she did have a potassium of 6.5 after dialysis. Was sent here I think from dialysis. Reports that she was able to stay for the entire dialysis treatment, though sometime while she was still in dialysis had an episode and she became very drowsy and lethargic and was sent to the ER for evaluation. In the ER she was alert oriented. Was only complaining of some back pain but she did have an elevated troponin. The patient denied any chest pain, shortness of breath. [place] the troponin elevation was related to renal failure. Found to have elevated D-dimer. Previously mentioned, complaining of shortness of breath. PAST MEDICAL HISTORY: 1. End-stage renal disease. Followed by Dr. Santamaria, on hemodialysis. 2. Morbid obesity. 3. Depression. 4. History of diabetes mellitus type 2. 5. Chronic anemia. 6. History of cervical cancer. 7. Constipation. 8. Diabetic gastroparesis. 9. Chronic lower back pain. 10. Hypertension. PAST SURGICAL HISTORY: 1. Lumbar laminectomy. 2. Left Vas-Cath placement. 3. History of previous right arm fistula. 4. Right wrist surgery. 5. Cholecystectomy. 6. Hysterectomy. 7. Abdominoplasty. 8. Left tibia surgery. 9. Bilateral CTR. 10. Right chest port placement. HOSPITAL COURSE: Admitted for overall weakness. [place] like she had some volume overload. Dr. Santamaria had evaluated and she had hemodialysis to get some extracellular fluid off. Seemed to show clinical improvement as far as her swelling and her discomfort. Blood pressures were controlled. She had mild hyperkalemia which corrected with dialysis. Blood sugars were well maintained. She felt she was ready go back to the [facility] on 12/28/2016. We are going to finish dialysis and then plan is to let her go home. Chest x-ray from 12/27/2016, cardiomegaly, no acute disease. Dr. Rothman, mobile service rv technician, has evaluated. [place] her troponin was elevated above normal range in the setting of volume overload and end-stage renal disease and felt the findings were nonspecific. She appeared to be improving clinically. Dr. Santamaria and Dr. Pola Rothman were comfortable with discharging her back to the [facility] today and this is what she wanted. Did get to talk to her brother. DISCHARGE MEDICATIONS: We will discharge her on the following medications. She will take Tylenol as needed, aspirin 81 mg a day[place] [address] units Sunday, Wednesdays, and Fridays. We will stop her Dilaudid. She takes Ambien at bedtime p.r.n. sleep. I am going to keep her off her Soma. I will let her go back on her Coreg 12.5 mg b.i.d. and hydralazine 50 mg p.o. q.8 hours. We will hold the Reglan. I am going to hold the Percocet. Will let her have her Maalox, Lyrica 50 mg b.i.d., and I think she gets Phenergan p.r.n. I guess we will put her back on her Percocet as well as; this is what she was on before. She takes Prozac 40 mg a day, omeprazole 20 mg b.i.d., Percocet 10 mg q.4 hours p.r.n. cc: Taqueria Vo MD
--- NOTE | 2016-12-29 21:20 | Extremity Venous Study ---
PROCEDURE NAME: Venous U/S Bilateral Legs - 12/26/2016 REFERRING PHYSICIAN: Dr. Vo. INTERPRETING PHYSICIAN: Dr. Aly. TECH: [place]. The patient has edema and pain in the legs. Bilateral lower extremity venous image accomplished. Common femoral, superficial femoral, deep femoral, popliteal, posterior tibial, peroneal, greater saphenous are imaged bilaterally. Doppler is used to evaluate the veins for spontaneity, phasicity, respiratory excursion, distal augmentation. All veins are compressible. No intraluminal clot is seen. INTERPRETATION: No evidence of deep or superficial venous thrombosis in either lower extremity in the veins identified. cc: Da Aly MD
== END 2016-12-28 15:59 ==
LOC: ED 19:17 → SUATTDRO 12-26 01:01 → 3N 12-26 01:01
PROVIDERS: ATTEND Emergency Medicine

== ENCOUNTER 2017-01-06 23:30 | Inpatient (IN) ==
[2017-01-07 00:47] LABS: INR 1.08; PROTIME 11.4 Seconds (9.2-11.7); PTT 28.9 Seconds (22.0-36.0)
[2017-01-07 01:00] LABS: BASO% 0.2 % (0.0-0.8); EOS# 0.02 X1000 (0.0-0.7); EOS% 0.2 % (0.0-10.0); HEMATOCRIT 28.4 % (37.0-47.0); HEMOGLOBIN 9.2 g/dL (12.0-16.0); IMM GRAN# 0.02 X1000 (0.0-0.04); IMM GRAN% 0.2 % (0.0-0.5); LYMPH# 0.44 X1000 (1.2-3.4); MANUAL DIFF NEEDED? NO; MCH 30.7 PG (27-31); MCHC 32.4 g/dL (33-37); MCV 94.7 FL (81-99); MONO# 0.57 X1000 (0.11-0.59); MONO% 5.2 % (1.7-9.3); MPV 10.7 FL (7.4-10.4); NEUT% 90.2 % (42.2-75.2); PLT 95 X1000 (130-400)
[2017-01-07 01:19] LABS: AGAP 15; ALBUMIN 3.1 g/dL (3.5-5.0); ALKALINE PHOSPHATASE 46 U/L (32-104); BUN 91 mg/dL (8-22); CALCIUM 8.8 mg/dL (8.8-10.2); CHLORIDE 91 mmol/L (98-107); CK PROFILE 55 U/L (24-173); COSMO 295; GOT 8 U/L (10-30); GPT < 5 U/L (10-36); POTASSIUM 6.1 mmol/L (3.5-5.1); SODIUM 132 mmol/L (136-145); TCO2 26 mmol/L (25-35); TOTAL BILIRUBIN 0.31 mg/dL (0.20-1.00); TOTAL PROTEIN 5.2 g/dL (6.3-8.3)
[2017-01-07] MEDS ORDERED: ALBUTEROL NEB INH ONE (01:21)
[2017-01-07 02:21] LABS: URINE SOURCE CATH
[2017-01-07 02:26] LABS: BILIRUBIN URINE NEGATIVE (NEGATIVE); BLOOD URINE MODERATE (NEGATIVE); COLOR ORANGE; GLUCOSE URINE 70 mg/dL (NEGATIVE); LEUKOCYTES URINE LARGE (NEGATIVE); NITRITE URINE NEGATIVE (NEGATIVE); PH URINE 7.5; PROTEIN URINE >600 mg/dL (NEGATIVE); SP GRAVITY URINE 1.016; TURBIDITY URINE TURBID (CLEAR); UROBILINOGEN URINE NORMAL (NORMAL)
[2017-01-07 02:27] LABS: URINE MICRO REVIEW NEEDED? YES
[2017-01-07 02:38] LABS: UR EPITHELIAL CELLS >10 /HPF (<10); URINE BACTERIA 4+ /HPF; URINE CULTURE NEEDED? YES; URINE RBC 20-40 /HPF (<10); URINE WBC TNTC /HPF (<10)
[2017-01-07] MEDS ORDERED: ROCEPHIN 1 GM in NS 50 ML IV ONE ×2 (04:54→14:54)
[2017-01-07] MEDS ORDERED: KAYEXALATE PO SCH (04:55)
[2017-01-07] MEDS ORDERED: ROBITUSSIN PO PRN ×2 (04:55→05:07)
[2017-01-07] MEDS ORDERED: TYLENOL PO PRN (04:55)
[2017-01-07] MEDS ORDERED: DULCOLAX PR PRN (04:55)
[2017-01-07] MEDS ORDERED: BUTALBITAL ACETAMINOPHN PO PRN (04:55)
[2017-01-07] MEDS ORDERED: VITAMIN D PO SCH (04:55)
[2017-01-07] MEDS ORDERED: PATIENT'S OWN MED PO PRN (04:55)
[2017-01-07] MEDS ORDERED: ROCEPHIN ONE (05:05)
[2017-01-07] MEDS ORDERED: NS 50 ML ONE (05:14)
[2017-01-07] MEDS: REGLAN PO SCH ×3 (06:07→16:48)
[2017-01-07] MEDS: MOVANTIK PO SCH (06:07)
[2017-01-07] MEDS: APRESOLINE PO SCH ×3 (06:08→21:55)
[2017-01-07] MEDS: PERCOCET-10 PO PRN ×3 (06:14→19:06)
--- NOTE | 2017-01-07 09:18 | HISTORY AND PHYSICAL ---
CHIEF COMPLAINT: Weakness, fever. HISTORY OF PRESENT ILLNESS: Ms. Esther Harley is a 61-year-old female who was transferred from her long-term by EMS to [facility] this afternoon for concern of sepsis. The patient has a history of end stage renal disease on hemodialysis Sunday, Sunday and Sunday. She is in general followed by Dr. Santamaria. She said normally she has dialysis for 4 hours, but on Sunday she was so weak and she could only finish 1 hour. Yesterday the staff at the long-term noticed she was more weak and staying in the bed longer than usual and also has been noted to have fever of 103, and after given 1 dose of acetaminophen, there was no decrease in the temperature, and she was found to be more swollen all over, so the ambulance was called and transferred the patient to the ER for further evaluation. She denies chest pain, coughing, more short of breath than usual. Denies abdominal pain, nausea, vomiting, diarrhea. No dysuria. No frequency. No blood in the urine. When she arrived in the ER, her temperature was gradually trending down to 98.5 even without giving any antipyretics. The labs show she has elevated potassium level at 6.1. Troponin is 0.541. Urine shows she might have a UTI with large leukocyte, bacteria and moderate blood. She was treated with albuterol breathing treatment with the proposal of bringing down the potassium. EKG has no hyperactive T wave changes. At this point, the patient will be admitted for treating hyperkalemia and UTI. We will contact her vamp strap ironer, Dr. Santamaria, for further dialysis to bring down the potassium level. PAST MEDICAL HISTORY: 1. End stage renal disease on hemodialysis. 2. Morbid obesity. 3. History of type 2 diabetes. Currently she is not on any medication for treatment, so probably is diet controlled. 4. Chronic anemia. 5. Depression and anxiety. 6. Chronic low back pain. 7. Hypertension. PAST SURGICAL HISTORY: 1. Lumbar laminectomy. 2. History of right arm fistula. 3. Right wrist surgery. 4. Cholecystectomy. 5. Hysterectomy. 6. Abdominoplasty. 7. Left tibial surgery. 8. Bilateral CTR. 9. Right chest port placement. SOCIAL HISTORY: The patient has previous tobacco use. Denies any history of alcohol or illicit drug use. FAMILY HISTORY: Significant for cardiac disease, diabetes. ALLERGIES: The patient has allergy to Talwin, Maxzide and Nubain. HOME MEDICATIONS: Ambien 5 mg p.o. nightly at bedtime p.r.n., hydralazine 50 mg p.o. q.8 hours, aspirin 81 mg p.o. daily, Coreg 12.5 mg p.o. b.i.d., Lyrica 50 mg b.i.d., amlodipine 5 mg b.i.d., Percocet 10 one p.o. q.4 hours p.r.n., Phenergan 25 mg p.o. q.6 hours p.r.n., omeprazole 20 mg p.o. b.i.d., vitamin D 50,000 units p.o. every week. REVIEW OF SYSTEMS: A 10-point review of systems was conducted. Please see the HPI for pertinent positives and negatives. PHYSICAL EXAMINATION: VITAL SIGNS: Temperature is 100.9, heart rate 74, respiratory rate 22, blood pressure 121/77, pulse oximetry 94% on room air. GENERAL: The patient is a pleasant 61-year-old morbidly obese patient resting in the bed. She is not in any acute distress. HEENT: Head is normocephalic and atraumatic. EOMI. Pallor. Oral mucosa is dry. NECK: No JVD. No carotid bruit. CARDIOVASCULAR: Regular rate, regular rhythm. Normal S1 and S2. CHEST: Chest wall with cath in place. Skin around the cath with no erythema, no drainage. PULMONARY: Diminished throughout but overall clear to auscultation bilaterally. No wheezing. No rales. GASTROINTESTINAL: Abdomen is soft, nontender, nondistended. Positive bowel sounds. EXTREMITIES: No edema. Pulses present in all 4 extremities. SKIN: No rash. Eyelids are puffy and pale. No cyanosis. NEUROLOGICAL: Alert, awake and oriented. No focal deficit noted. DIAGNOSTIC DATA: CBC shows WBC of 10.99, hemoglobin and hematocrit are 9.2 and 28.4, platelets 95. PT is 11.4. INR is 1.0. Chemistry shows sodium 132, potassium 6.1, chloride 91, CO2 is 26, BUN is 91, creatinine 7.7, glucose 137. Troponin is 0.541. Urinalysis shows protein more than 600, moderate blood, large leukocyte, 4+ bacteria. Chest x-ray shows no infiltrate per my reading, slight cardiomegaly. EKG is sinus rhythm. There is no acute T wave elevation. ASSESSMENT AND PLAN: 1. Hyperkalemia. This is probably secondary to the patient's end stage renal disease and decreased amount of hemodialysis time. There is no arrhythmia finding on the current EKG. We will continue monitoring the patient's hemodynamic and cardiac status. We will contact [facility] for assistance. The patient probably needs further dialysis to lower potassium level. 2. Urinary tract infection. The patient has positive finding on the urinalysis and fever, so this could be from the UTI. The patient was given a dose of Rocephin the ER. We will continue to assess the patient and check the urine culture results. 3. Hypertension. The patient's blood pressure seems under good control. We will resume the patient's home regimen. 4. The patient will be admitted to the Medical Floor with telemetry and will use SCDs for DVT prophylaxis. Further orders and recommendations pending hospital course and diagnostic studies. cc: Janet Lincoln MD
--- NOTE | 2017-01-07 09:29 | Diag Imaging Result Doc PS360 ---
CHEST-1 VIEW - 01/07/2017 INDICATION: possible sepsis TECHNIQUE: COMPARISON: 12/27/2016 FINDINGS: Stable right chest port and left dialysis catheter. Heart size and pulmonary vascularity are top normal. No focal infiltrates, pneumothorax, or pleural effusion. IMPRESSION: No acute disease or change from prior. Electronically signed by Kushal Green 01/07/2017 9:26 AM
[2017-01-07] MEDS: PRILOSEC PO SCH ×2 (10:42→21:51)
[2017-01-07] MEDS: LOTRISONE CREAM TOP SCH ×2 (10:42→21:53)
[2017-01-07] MEDS: COREG PO SCH ×2 (10:42→21:51)
[2017-01-07] MEDS: BIDEX PO SCH ×4 (10:43→21:51)
[2017-01-07] MEDS: LYRICA PO SCH ×2 (10:43→21:51)
[2017-01-07] MEDS: ASPIRIN PO SCH (10:43)
[2017-01-07] MEDS: NORVASC PO SCH ×2 (10:43→21:51)
[2017-01-07] MEDS: MIRALAX PO SCH ×2 (10:44→21:52)
[2017-01-07] MEDS: PROZAC PO SCH (10:44)
[2017-01-07] MEDS: KAYEXALATE PO ONE ×2 (10:45→10:50)
[2017-01-07] MEDS: DILAUDID IV PRN ×3 (13:12→21:52)
[2017-01-07] MEDS ORDERED: VELTASSA PO SCH (13:15)
--- NOTE | 2017-01-07 13:33 | PROGRESS NOTE ---
DATE: 01/07/2017 SUBJECTIVE: The patient was admitted this morning. A 61-year-old who was transferred from [facility] by EMS for concern of sepsis. The patient has a history of end-stage renal disease, on hemodialysis Mondays, Wednesdays and Fridays. Followed by Dr. Santamaria. She had dialysis for 4 hours, but, on Sunday, she was so weak that they could only finished 1 hour. The day before admission, the staff at the [facility] noted she was more weak and staying in the bed longer than she usually does, and noted to have fever of 103. After 1 dose of acetaminophen, there was no decrease in temperature. Found to be more swollen all over, an ambulance was called, and transferred here to the hospital. In the ER, temperature seemed to be gradually trending down. Urinalysis showed large amount of leukocytes, bacteria and moderate amount of blood. She had some hyperkalemia, treated with an albuterol treatment. EKG with no hyperactive T-wave changes, and she was ordered a dose of Kayexalate this morning, but she refused it, saying it made her nauseated. Review given today. PAST MEDICAL HISTORY: End-stage renal disease, morbid obesity, diabetes mellitus type 2, chronic anemia, depression/anxiety, chronic low-back pain and hypertension. PAST SURGICAL HISTORY: She has had lumbar laminectomy, history right arm fistula, right wrist surgery, cholecystectomy, hysterectomy, abdominoplasty, left tibial surgery, bilateral carpal tunnel release, right chest port placement. PHYSICAL EXAMINATION: general: Today, awake and alert, she complained of pain in her back, is asking for some Dilaudid. Vital signs: Temp 98.4 degrees, pulse 78, respirations 14, blood pressure 144/66. Height 5 feet 6 inches. HEENT: The pupils are equal, round. neck: CVP less than 6 cm. Lungs: Clear in all lung jones. Cardiovascular: Regular rhythm and rate, without murmur or S3. LABORATORY: White count 10,990, hematocrit 28, platelet count 95,000. Chemistry: Sodium 132, potassium 6.1, chloride 91, bicarb 26, BUN 91, creatinine 7.7. Troponin 0.541, 0.532. IMAGING: Her chest x-ray from this morning: No acute disease. No change from prior. No sign of infiltrate. She has a right chest port, left dialysis catheter. ASSESSMENT AND PLAN: 1. Hyperkalemia. We will check her potassium again this morning, magnesium as well. I will see if we can try some Veltassa. See when Dr. Santamaria would like to dialyze. EKG without significant changes. 2. Urinary tract infection. I have given her Rocephin. Will await cultures. 3. Hypertension. 4. Lower back pain. Let her have some Dilaudid, in addition to her Percocet. On review of her orders, I do not see any changes, except we will add Dilaudid and will try Veltassa, instead of the Kayexalate. cc: Taqueria Vo MD
[2017-01-07 14:26] LABS: CALCIUM 8.3 mg/dL (8.8-10.2); POTASSIUM 5.8 mmol/L (3.5-5.1)
[2017-01-07] MEDS ORDERED: VANCOMYCIN 1 GM/NS 1 GM/250 ML IVPB IV ONE (15:30)
[2017-01-07] MEDS: PHENERGAN PO PRN (16:47)
[2017-01-07] MEDS ORDERED: VELTASSA PO ONE (19:00)
[2017-01-07] MEDS: AMBIEN PO SCH (21:51)
[2017-01-08] MEDS: BIDEX PO SCH ×4 (02:47→20:34)
[2017-01-08] MEDS: DILAUDID IV PRN ×5 (02:47→23:49)
[2017-01-08] MEDS: MOVANTIK PO SCH (06:05)
[2017-01-08] MEDS: REGLAN PO SCH ×3 (06:05→16:18)
[2017-01-08] MEDS: PERCOCET-10 PO PRN ×3 (06:05→22:40)
[2017-01-08] MEDS: TUMS PO PRN (06:05)
[2017-01-08] MEDS: APRESOLINE PO SCH ×3 (06:06→20:35)
[2017-01-08] MEDS ORDERED: HEPARIN IV PRN (07:43)
[2017-01-08] MEDS ORDERED: NS 2,000 ML MISC PRN (07:43)
[2017-01-08] MEDS ORDERED: TIGHT: 0.2 ML/HR MISC PRN (07:43)
[2017-01-08 08:25] LABS: POTASSIUM 6.3 mmol/L (3.5-5.1)
[2017-01-08] MEDS ORDERED: NS 2,000 ML ONE (09:05)
[2017-01-08] MEDS ORDERED: HEPARIN ONE (09:05)
--- NOTE | 2017-01-08 10:01 | CONSULTATION ---
DATE OF CONSULTATION: 01/08/2017 REASON FOR ADMISSION: Profound weakness. REASON FOR CONSULTATION: ESRD management. Assist with medical management. CONSULTING PHYSICIAN: Dr. Vo. HISTORY OF PRESENT ILLNESS: This is a 61-year-old female known to our service for ESRD management on Sunday, Sunday and Sunday for dialysis. On Sunday, she did not finish her dialysis treatment secondary to weakness[facility] she was noted to be much weaker and febrile with a temperature of a 103 degrees. She had worsening edema and was transferred to the emergency room for further workup and treatment. There she had a potassium of 6.1 with a possible UTI noted on urinalysis. The patient was treated for this and admitted to the hospital. We have been asked to see her to assist. This morning she states that she remains weak to the point that she cannot sit up without assistance. She denies any chest pain or shortness of breath. PAST MEDICAL HISTORY: 1. ESRD. 2. Hemodialysis Sunday, Sunday, Sunday. 3. Obesity. 4. Type 2 diabetes. 5. Anemia. 6. Chronic back pain. 7. Hypertension. 8. Depression and anxiety. SURGICAL HISTORY: 1. Lumbar laminectomy. 2. Right arm fistula. 3. Right wrist surgery. 4. Cholecystectomy. 5. Hysterectomy. 6. Abdominoplasty. 7. Left tibial surgery. 8. Bilateral CTR. 9. Right chest port placement. ALLERGIES: 1. Talwin. 2. Maxzide. 3. Nubain. HOME MEDICATIONS: 1. Ambien. 2. Hydralazine. 3. Aspirin. 4. Coreg. 5. Lyrica. 6. Amlodipine. 7. Percocet. 8. Phenergan. 9. Omeprazole. 10. Vitamin D. FAMILY HISTORY: Coronary artery disease, diabetes. SOCIAL HISTORY: No ETOH or illicit drug use. Prior tobacco use. REVIEW OF SYSTEMS: Is profound weakness. See the above H P.Vital Signs: Temperature 98.4 degrees, pulse 85, respiratory rate 17, blood pressure 96/56. Intake 720 mL. Output 275 mL. General: Middle-aged female resting in bed. She is awake and alert. No acute distress. HEENT: Normocephalic, atraumatic. Conjunctivae are pale. Oral mucosa moist. Neck: Supple. Trachea midline. Some trace JVD. Cardiovascular: Regular rate and rhythm. No murmur. Pulmonary: She has equal excursion. She is clear bilaterally. Decreased breath sounds to the bases. She is on O2 supplementation via nasal cannula. Abdomen: Soft, obese, positive bowel sounds. : Not inspected. She is voiding. Extremities: Trace pretibial edema. No clubbing or cyanosis. Integumentary: Skin is pale, warm, and dry. Neurological: Grossly nonfocal. LAB DATA: Sodium 133, potassium 6.3, chloride 92, CO2 21, BUN 107, creatinine 8.8. Calcium 9.0, urine with large protein, too numerous to count WBCs. Moderate blood. ASSESSMENT AND PLAN: 1. End-stage renal disease management. Today is her routine dialysis day. We will plan to dialyze her on a 2 K bath/UF to dry weight/four hour treatment. We will check her labs in the morning, and dependent upon that we will make a determination if she needs an additional dialysis treatment secondary to her potassium level. 2. Electrolytes, acid-base balance see #1 for plan. Potassium today is 6.3. 3. Profound weakness followed by primary. Again potassium was somewhat elevated , may be contributing to that. 4. Hypertension currently controlled. 5. Fluid volume. She does not appear overloaded. Dictated by WILMER Neumann for Yaya Santamaria MD Patient seen, data reviewed, discussed with Tracey Crystal on 01/08/17. I agree with the above assessment and plan of care. cc: Yaya Santamaria MD [facility]
--- NOTE | 2017-01-08 13:55 | PROGRESS NOTE ---
DATE: 01/08/2017 SUBJECTIVE: Ms. Harley is feeling better, feels a little bit stronger and she is scheduled for dialysis this morning. OBJECTIVE: Vital signs: Temperature 98.4 degrees, pulse 85, respirations 17, blood pressure 96/56. Her range of blood pressure been between 96 and 144 over 56-68. Lungs: Are clear in all lung jones. Cardiovascular: Regular rhythm and rate without murmur or S3. Abdomen: Soft. Skin is warm and dry. LAB REVIEW: From the 9th white count 9990, hematocrit 28, platelet count 95,000. Chemistry sodium 133, potassium 6.3, chloride 92, BUN 107, creatinine 1.1. Her troponin is mildly elevated at 0.541, 0.532. ASSESSMENT AND PLAN: 1. End-stage renal disease for dialysis today think they plan on 2 k bath to dry weight 4 hour treatment, note the potassium a little high today. 2. Acid base appears to be stable. 3. Profound weakness aware. Will pursue physical therapy when able. 4. Lower back pain. I did add some Dilaudid as complained the pain was worse than usual. 5. Urinary tract infection treating. LAB: Her lab shows gram-negative anna and urinary culture were and blood cultures, blood cultures show positive cocci. Plan to continue I gave her another dose of ceftriaxone, I gave her some vancomycin, note the urine culture from 01/07 shows gram-negative anna which greater than 100,000 ID pending. Blood culture from 15/02 both were positive 1 of them showed gram- positive cocci. Will I guess continue ceftriaxone and continue vancomycin, will ask Dr. Aguiar to help current course of antibiotics. cc: Taqueria Vo MD
[2017-01-08] MEDS: ASPIRIN PO SCH (15:49)
[2017-01-08] MEDS: PROZAC PO SCH (15:50)
[2017-01-08] MEDS: LYRICA PO SCH ×2 (15:52→20:39)
[2017-01-08] MEDS: MIRALAX PO SCH ×2 (15:52→20:35)
[2017-01-08] MEDS: COREG PO SCH ×2 (15:52→20:35)
[2017-01-08] MEDS: PRILOSEC PO SCH ×2 (15:52→20:35)
[2017-01-08] MEDS: NORVASC PO SCH ×2 (15:52→20:35)
[2017-01-08] MEDS: LOTRISONE CREAM TOP SCH ×2 (16:14→20:35)
--- NOTE | 2017-01-08 19:39 | CONSULTATION ---
DATE OF CONSULTATION: 01/08/2017 CONCLUSION: Patient was admitted to the hospital with generalized weakness, fever and chills. I think this is due to an infection. She does have positive blood cultures for gram positive cocci. This could originate from any one of 3 separate entities. It could come from a right Port-A-Cath, from her left Vas-Cath or her right upper extremity AV fistula. In addition, patient has a gram- negative anna urinary tract infection. RECOMMENDATIONS: I have ordered vancomycin 1 g and ceftazidime 1 g to be given after each dialysis. DISCUSSION: The patient was admitted the hospital. She as mentioned above had excess fluid. She was having fever and chills. She was anorectic and terribly weak. She was not having any nausea or vomiting. She did not complain of any dysuria or diarrhea. Laboratory and chest studies so far show chest x-ray has no acute disease. The CBC shows a white count of 10, 990, hemoglobin 9.2, and platelet count 95,000. Creatinine is 8.8, GFR is 5. Liver function studies are normal. Blood cultures have gram-positive cocci in them. Urine is growing a gram- negative anna. 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 PREVIOUS HOSPITALIZATIONS AND OPERATIONS: She has been admitted multiple times for diabetes mellitus, gastroparesis and hyperkalemia. She has also had a lumbar laminectomy , placement of a right arm AV fistula, placement of a right-sided Port-A-Cath, and a left-sided Vas-Cath for dialysis. Lumbar laminectomy, formation of right arm AV fistula, right wrist surgery, cholecystectomy, hysterectomy, abdominoplasty, left tibial surgery, cataract surgery and placement of a right Port-A-Cath. MEDICAL DISEASES: Positive for end-stage renal disease on hemodialysis, morbid obesity, chronic anemia, depression and anxiety, chronic low back pain, hypertension, cataracts, diabetes mellitus with severe gastroparesis. INFECTIOUS DISEASE: Positive for urinary tract infection and pneumonia. REVIEW OF SYSTEMS: Eyes and ears: She has decreased vision, but her hearing is good. Neck: No stiffness. Respiratory: No cough or shortness of breath. Cardiac: No chest pain or palpitations. GI: No nausea, vomiting, or diarrhea. : No dysuria. No flank pain. Bones, joints, muscles: Patient has generalized weakness. She does not complain of any joint pain. Endocrine: Patient does have diabetes, but not thyroid disease. Neurologic: There is no unilateral loss of motor or sensory function. The patient does have generalized weakness. No seizures. FAMILY HISTORY: Positive for hypertension, myocardial infarction and stroke. SOCIAL HISTORY: The patient lives in a [facility]. She is . She does not have any pets. ALLERGIES: She is allergic to Talwin, Maxzide and Nubain. HOME MEDICATIONS: Ambien, hydralazine, aspirin, Coreg, Lyrica, amlodipine, Percocet, Phenergan, omeprazole and vitamin D. PHYSICAL EXAMINATION: Vital Signs: Temperature is 98.1 degrees, pulse 85, respirations 20, blood pressure 147/63. General: This is an obese middle-aged female. She is in no acute distress. Head, eyes, ears, nose, and throat: She can hear my spoken words and see near objects. No drainage noted from the nose or ears. Neck: No meningismus. Thorax: On the left side, she has a tunneled dialysis catheter. The site is not swollen or red. The patient has on the right side a Port-A-Cath. On the left side of the chest she has a left Vas-Cath. In the right upper extremity, she has an AV fistula. Abdomen: Soft and nontender. Cardiac: Heart rate was regular. The patient has bilateral leg edema. Lungs: Clear to auscultation. Abdomen: Soft and nontender. Extremities: As mentioned above, patient has an AV fistula in the right arm. Neurologic: Patient is awake. She can move her extremities but she is weak. There is no tremor. Her sensation was intact to touch. Thank you for the consult. cc: Aung Aguiar MD [facility]
[2017-01-08] MEDS: VELTASSA PO SCH (20:34)
[2017-01-08] MEDS: AMBIEN PO SCH (20:35)
[2017-01-09] MEDS ORDERED: VANCOMYCIN 1 GM/NS 1 GM/250 ML IVPB IV SCH (02:00)
[2017-01-09] MEDS ORDERED: TAZIDIME 1 GM in NS 50 ML IV SCH (02:00)
[2017-01-09] MEDS: BIDEX PO SCH ×4 (02:03→21:24)
[2017-01-09] MEDS: APRESOLINE PO SCH ×3 (04:11→21:25)
[2017-01-09] MEDS: DILAUDID IV PRN ×5 (04:11→21:25)
[2017-01-09] MEDS: REGLAN PO SCH ×3 (06:11→15:58)
[2017-01-09] MEDS: MOVANTIK PO SCH (06:11)
[2017-01-09] MEDS: PERCOCET-10 PO PRN ×3 (06:14→23:36)
[2017-01-09] MEDS ORDERED: TIGHT: 0.2 ML/HR MISC PRN (06:56)
[2017-01-09] MEDS ORDERED: HEPARIN IV PRN (06:56)
[2017-01-09] MEDS ORDERED: NS 2,000 ML MISC PRN (06:56)
[2017-01-09] MEDS: PHENERGAN PO PRN ×2 (08:36→15:58)
[2017-01-09] MEDS ORDERED: NS 2,000 ML ONE (08:56)
[2017-01-09] MEDS ORDERED: HEPARIN ONE (08:57)
--- NOTE | 2017-01-09 09:58 | PROGRESS NOTE ---
DATE: 01/09/2017 SUBJECTIVE: Patient resting in bed. She is to go to dialysis later this morning. OBJECTIVE: Vital signs: Temperature 98.6 degrees, pulse 69, respiratory rate 18, blood pressure 122/66. Intake was not measured. Output 5.1 L. General appearance: This is a middle-aged female resting in bed. Awake, alert, and in no acute distress. HEENT: Normocephalic, atraumatic. Conjunctivae pale. Oral mucosa moist. Neck: Supple. Trachea midline. No JVD. Cardiovascular: Regular rate and rhythm without murmur or gallop. Pulmonary: Equal excursion. Clear bilaterally. Abdomen: Soft, positive bowel sounds, obese. : Not inspected. She is voiding. Extremities: Trace pretibial edema. No clubbing, cyanosis. Integumentary: Skin is warm and dry. She has a Port-A-Cath to the right upper chest wall and a tunnel dialysis catheter left upper chest wall. There is no erythema, edema, or drainage to the sites. LAB DATA: Pending. ASSESSMENT AND PLAN: 1. End-stage renal disease management. We dialyzed her yesterday, removed 5 L. We will plan to dialyze her again today to achieve her dry weight. She did have some hyperkalemia yesterday. We will dialyze her again on a 2 K bath today. 2. Electrolytes, acid-base balance. See #1 for plan. Understand that she has some Veltassa ordered by primary. Continue to follow her labs. 3. Profound weakness. Her blood cultures have come back positive. She has now been seen by infectious disease and has been placed on vancomycin and ceftazidime after each dialysis treatment. We will dose her today. She has a Enterococcus faecalis in the blood and an Escherichia coli urinary tract infection. 4. Hypertension, controlled. 5. Fluid volume. See #1 for plan. Dictated by WILMER Neumann for Yaya Santamaria MD Patient seen, data reviewed, discussed with Tracey Crystal on 01/08/17. I agree with the above assessment and plan of care. cc: Yaya Santamaria MD [facility]
[2017-01-09] MEDS: COREG PO SCH ×3 (12:21→21:25)
[2017-01-09] MEDS: NORVASC PO SCH ×3 (12:22→21:25)
[2017-01-09] MEDS: LOTRISONE CREAM TOP SCH (12:23)
--- NOTE | 2017-01-09 12:48 | PROGRESS NOTE ---
DATE: 01/09/2017 The patient is feeling better. Appreciate Dr. Aung Aguiar' help. She is a 61-year-old admitted to the hospital with generalized weakness, fever and chills and thinks this is due to infection. Does have positive blood cultures for gram-positive cocci and this could originate from 3 different entities, the right Port-A-Cath, Vas-Cath or upper extremity AV fistula. She also has a gram-negative anna urinary tract infection so we are going to treat her with vancomycin and ceftazidime, vancomycin 1 g and ceftazidime 1 g after each dialysis. Clinically she feels better. Temp 97.8 degrees, pulse 70, respirations 16, blood pressure 122/70.HEENT: Pupils are equal and round. CVP less than 6 cm. Lungs: Clear in all lung jones. Cardiovascular: Regular rhythm and rate without murmur or S3. Abdomen: Soft. Skin: Is warm and dry. Urine output 5100 mL from dialysis. LABS: From the night reviewed. Chemistries from yesterday, sodium 133, potassium 6.3, chloride 92, BUN 107, creatinine 8.8. ASSESSMENT AND PLAN: 1. End-stage renal disease. Continue dialysis. Her volume, electrolytes and acid base look stable. 2. Infection. Gram positive cocci from the blood and a gram-negative anna from the urine. Continue ceftazidime and vancomycin. Positive blood cultures that could range from 3 separate entities, right Port-A-Cath, left Vas-Cath or right upper extremity AV fistula. 3. Lower back pain. 4. Profound weakness. 5. Urinary tract infection. Aware. Review of orders. I do not see any change. cc: Taqueria Vo MD
[2017-01-09] MEDS: MIRALAX PO SCH ×2 (13:15→21:26)
[2017-01-09] MEDS: LYRICA PO SCH ×2 (13:23→21:25)
[2017-01-09] MEDS: ASPIRIN PO SCH (13:23)
[2017-01-09] MEDS: PRILOSEC PO SCH ×2 (13:23→21:25)
[2017-01-09] MEDS: PROZAC PO SCH (13:24)
[2017-01-09] MEDS ORDERED: TAZIDIME 1 GM in NS 50 ML IV ONE (17:00)
[2017-01-09] MEDS ORDERED: VANCOMYCIN 1 GM/NS 1 GM/250 ML IVPB IV ONE (17:00)
--- NOTE | 2017-01-09 17:21 | PROGRESS NOTE ---
DATE: 01/09/2017 PRESENT ILLNESS: The patient has an extended spectrum beta-lactamase producing E. coli urinary tract infection. The patient does not have symptoms of a urinary tract infection at this time, however, she did tell me she has had severe urinary tract infections in the past. Patient also has enterococcal bacteremia. Two separate blood cultures are growing Enterococcus, therefore, I think the patient has a true bacteremia. MEDICATIONS: Currently the patient is getting vancomycin and ceftazidime after dialysis. PHYSICAL EXAMINATION: Vital Signs: Temperature 98.2 degrees, pulse 77, respirations 15, blood pressure 130/65. General: This is an obese, chronically ill-appearing, middle-aged female. She is in no acute distress. She says she just does not feel good. Lungs: Clear to auscultation. Cardiovascular: Regular heart rate. Abdomen: Abdomen and flank soft and nontender. Extremities: In the patient's right arm there is a functioning AV fistula. The arm is not swollen or erythematous. Chest: In the right chest there is a Port-A-Cath present. It is not swollen, erythematous or tender. In the left chest there is a tunnel dialysis catheter. Likewise the site is not erythematous, swollen or tender either. LAB AND X-RAY: There is no new lab as far as microbiology goes, however, the patient does have as mentioned above an extended spectrum beta-lactamase producing E. coli urinary tract infection and her blood cultures are growing Enterococcus. There is no new radiographic study. ASSESSMENT AND PLAN: 1. As mentioned above, because patient has 2 separate blood cultures positive for Enterococcus I think she has true bacteremia. It could have originated from her AV fistula, from her from her right-sided Port-A-Cath or from her left-sided tunnel dialysis catheter. The patient tells me that the left-sided tunnel dialysis catheter is to be removed fairly soon because she is going to be dialyzing through the AV fistula. Therefore, I have asked Dr. Aly to remove the tunnel dialysis catheter. After it is out I will repeat the patient's blood cultures and if they are sterile, then we will assume that the tunnel dialysis catheter was the source of the infection and we will leave the right-sided Port-A-Cath and the right arm AV fistula alone. 2. Regarding the patient's urinary tract infection, I am going to treat that with ertapenem at a dose of 500 mg IV daily for 14 days. 3. I plan to treat the patient's urinary tract infection for 2 weeks and also treat the bacteremia for 2 weeks. COMORBIDITY: She has end-stage renal disease. She is on dialysis. She previously required a tunnel dialysis catheter. She has very poor IV access and a Port-A-Cath is needed to give her intravenous medications and also to draw blood from. In addition, the patient has diabetes mellitus and severe gastroparesis. cc: Aung Aguiar MD
--- NOTE | 2017-01-09 19:30 | CONSULTATION ---
DATE OF CONSULTATION: 01/09/2017 CHIEF COMPLAINT: Enterococcus sepsis. HISTORY: This 61-year-old lady now dialyzes via right forearm fistula. She still has a tunnel catheter in place. She is admitted and was found to have an E. coli urinary tract infection and Enterococcus faecalis in her bloodstream. She no longer needs her tunnel catheter. There was some suspicion this may be the source of her sepsis so I have been asked to remove the catheter. She has end-stage renal disease, morbid obesity, type 2 diabetes, chronic anemia, depression, anxiety, chronic low back pain and hypertension. PAST SURGICAL HISTORY: Her previous surgeries include , cholecystectomy, hysterectomy, abdominoplasty, tibial surgery, carpal tunnel release and right-sided port placement in addition to her fistula. SOCIAL HISTORY: She denies alcohol or drug use. FAMILY HISTORY: Noncontributory. HOME MEDICATIONS: Listed. ALLERGIES: She is allergic to Talwin, Maxzide and Nubain. REVIEW OF SYSTEMS: As noted above. PHYSICAL EXAMINATION: Vital Signs: Afebrile, heart rate 77, respiratory rate 15, blood pressure 130/65. General: Tunnel catheter is noted on the left. Port is noted on the right. Fistula was palpated in the right forearm. Lungs: Bilateral breath sounds are present. Abdomen: Soft and nontender. Extremities: No peripheral edema. Neurologic: She is awake and alert. ASSESSMENT: Enterococcus faecalis sepsis. PLAN: Remove her tunnel catheter. We will plan to proceed on 01/10. cc: Da Aly MD
[2017-01-09] MEDS: INVANZ 0.5 GM in NS 50 ML IV SCH (21:24)
[2017-01-09] MEDS: AMBIEN PO SCH (21:25)
[2017-01-09] MEDS: VELTASSA PO SCH (21:26)
[2017-01-10] MEDS: LOTRISONE CREAM TOP SCH ×3 (01:29→21:00)
[2017-01-10] MEDS: BIDEX PO SCH ×4 (03:16→22:28)
[2017-01-10] MEDS: DILAUDID IV PRN ×4 (03:49→22:29)
[2017-01-10] MEDS: APRESOLINE PO SCH ×3 (06:31→22:29)
[2017-01-10] MEDS ORDERED: NS 2,000 ML ONE ×3 (06:50→15:24)
[2017-01-10] MEDS ORDERED: HEPARIN ONE ×2 (06:50→08:22)
[2017-01-10] MEDS ORDERED: HEPARIN IV PRN (07:30)
[2017-01-10] MEDS ORDERED: TIGHT: 0.2 ML/HR MISC PRN (07:30)
[2017-01-10] MEDS: MOVANTIK PO SCH (07:30)
[2017-01-10] MEDS ORDERED: NS 2,000 ML MISC PRN (07:30)
[2017-01-10] MEDS: REGLAN PO SCH ×3 (08:16→17:03)
[2017-01-10] MEDS: COREG PO SCH ×2 (08:17→22:29)
[2017-01-10 08:47] LABS: ALBUMIN 2.9 g/dL (3.5-5.0); CALCIUM 7.9 mg/dL (8.8-10.2); POTASSIUM 4.1 mmol/L (3.5-5.1)
[2017-01-10] MEDS ORDERED: ZOFRAN ONE ×3 (09:13→10:36)
[2017-01-10] MEDS ORDERED: XYLOCAINE-MPF 2% ONE (09:36)
[2017-01-10] MEDS ORDERED: DIPRIVAN 1% ONE (09:36)
[2017-01-10] MEDS ORDERED: XYLOCAINE 1%/EPI 1:100,000 ONE (09:37)
[2017-01-10] MEDS ORDERED: QUELICIN (DOSE) ONE (10:01)
--- NOTE | 2017-01-10 11:21 | OPERATIVE NOTE ---
PROCEDURE DATE: 01/10/2017 NAME OF THE PROCEDURE: Removal of left-sided tunneled catheter. SURGEON: Da Aly MD. DISCOTHEQUE DANCER: Barbara. PREOPERATIVE DIAGNOSIS: Enterococcus faecalis bacteremia. POSTOPERATIVE DIAGNOSIS: Enterococcus faecalis bacteremia. REASON FOR PROCEDURE: This is a 61-year old with enterococcus bacteremia. She has a tunnel catheter that she no longer uses. DESCRIPTION OF PROCEDURE: Satisfactory general anesthesia was achieved, the left upper anterior chest was prepped and draped in a sterile fashion. We anesthetized the skin with 1% lidocaine with epinephrine in the skin just at the exit site down to the cuff. We incised the skin, and freed up the cuff, and delivered the catheter in toto. We cut off the tips for culture. We held gentle pressure until hemostasis was achieved. We then closed the skin with a 4-0 Polysorb subcuticular stitch. Sterile 4 x 4 gauze dressing was applied. She tolerated it well. Was sent to the recovery room in satisfactory condition. cc: Da Aly MD
[2017-01-10] MEDS: PHENERGAN PO PRN (11:36)
--- NOTE | 2017-01-10 13:16 | PROGRESS NOTE ---
DATE: 01/10/2017 SUBJECTIVE: The patient resting in bed. She continues to have some edema and a little bit of shortness of breath. She has had some nausea this morning. OBJECTIVE: Vital Signs: Temperature 97.6 degrees, pulse 71, respiratory rate 16, blood pressure 144/61. Intake 526 mL, output 5.1 liters. General: On physical exam, this is a middle-aged female, resting in bed. Awake, alert, oriented. No acute distress. HEENT: Normocephalic, atraumatic. Oral mucosa is moist. Neck: Supple. Trachea midline. No JVD. Cardiovascular: Regular rate and rhythm without murmur or gallop. Pulmonary: Equal excursion. She is clear bilaterally. Abdomen: Obese, soft, positive bowel sounds. Genitourinary: Not inspected. She has minimal void. Extremities: Trace pretibial edema. She does have some dependent edema to the upper extremities. No clubbing or cyanosis. Integumentary: The skin is warm and dry with a Port- A-Cath noted to the right upper chest wall and a tunneled dialysis catheter noted to the left upper chest wall. There is no erythema, edema, or drainage. LABORATORY DATA: Pending. ASSESSMENT AND PLAN: 1. End-stage renal disease management. Today is her routine dialysis day. We will plan to keep her on a 2-potassium bath/ultrafiltration 4 liters to dry weight as tolerated /4 hour treatment. Recheck her labs in the morning to determine if she needs additional treatment. She had some hyperkalemia earlier in the hospitalization, and she was well above her dry weight when she came in the hospital. 2. Positive blood cultures, on vancomycin and ceftazidime. 3. Hypertension, controlled. 4. Fluid volume. See number 1 for plan. Dictated by WILMER Neumann for Yaya Santamaria MD Patient seen, data reviewed, discussed with Tracey Crystal on 01/10/17. I agree with the above assessment and plan of care. cc: Yaya Santamaria MD [facility]
--- NOTE | 2017-01-10 13:48 | PROGRESS NOTE ---
DATE: 01/10/2017 SUBJECTIVE: Ms. Harlye is feeling better. Her breathing is doing better. She is scheduled again for dialysis and actually today does get dialysis. Dr. Aly is going to remove the left- sided total catheter. OBJECTIVE: Vital Signs: Today, afebrile. Temperature 97.7 degrees, pulse 74, respirations 9, blood pressure 114/42. Lungs: Clear in all lung jones. Cardiovascular: Regular rhythm and rate without murmur or S3. Abdomen: Soft. Skin: Warm and dry. No urine output today. Yesterday dialyzed 5 L. LABORATORY DATA: From the a CBC reviewed, chemistries from today sodium 140, potassium 4.1, chloride 98, BUN 46, creatinine 5.0. Magnesium was 2.0. ASSESSMENT AND PLAN: 1. Extended spectrum beta-lactamase producing Escherichia urinary tract infection. The patient does not have symptoms of a urinary tract infection at this time. She did have severe urinary tract infections in the past. She has enterococcal bacteremia and blood cultures growing enterococcus so I would remove the tunneled catheter which is probably the most likely source for bacteremia. We are going to continue vancomycin and ceftazidime after her dialysis. 2. Urinary tract infection. Continue to treat with 500 mg IV q. day for 14 daily for 14 days. 3. Diabetes mellitus type 2. 4. Lower back pain. 5. End-stage renal disease. Volume status, electrolytes and acid base looks pretty good. cc: Taqueria Vo MD
[2017-01-10] MEDS ORDERED: VANCOMYCIN 1 GM/NS 1 GM/250 ML IVPB IV ONE (17:00)
[2017-01-10] MEDS: EPOGEN SUBQ SCH (17:01)
[2017-01-10] MEDS: ASPIRIN PO SCH (17:01)
[2017-01-10] MEDS: MIRALAX PO SCH ×2 (17:01→21:47)
[2017-01-10] MEDS: LYRICA PO SCH ×2 (17:01→21:49)
[2017-01-10] MEDS: NORVASC PO SCH ×2 (17:02→22:29)
[2017-01-10] MEDS: PROZAC PO SCH (17:02)
[2017-01-10] MEDS: PRILOSEC PO SCH ×2 (17:02→22:29)
--- NOTE | 2017-01-10 18:11 | PROGRESS NOTE ---
DATE: 01/10/2017 PRESENT ILLNESS: The patient has an extended spectrum beta lactamase producing E coli urinary tract infection and an enterococcal bacteremia. MEDICATIONS: The patient is receiving vancomycin after each dialysis and daily intravenous ertapenem. This is day 1 of ertapenem in treatment. I will be counting the first day of treatment with vancomycin when the first blood culture is negative. Therefore I will be counting the vancomycin days of doses starting with the day that the blood culture is negative. I plan to wait until 2 days from today since the tunneled dialysis catheter was removed and may have been the catheter that caused the infection. PHYSICAL EXAMINATION: Vital Signs: Temperature is 98.6 degrees, pulse 77, respirations 15, blood pressure 163/65. General: This is an obese, somewhat ill-appearing, middle-aged female. She is in no acute distress. She says she is having only minimal pain at the site where the dialysis catheter was removed. Lungs: Clear to auscultation. Cardiovascular: Regular heart rate. Abdomen: Soft and nontender. The patient's right arm has an AV fistula in it. The site is not erythematous or swollen. The patient has in the right chest a Port-A-Cath present, and that site also is not erythematous or swollen. The patient has a dressing over the left chest area where the patient's tunneled dialysis catheter was removed today. LAB AND X-RAY: The patient's creatinine today was 5. GFR is 9. There is no other laboratory work for today, and there is no x-ray from today also. ASSESSMENT AND PLAN: As mentioned above, I will be treating the patient's enterococcal bacteremia with vancomycin given after each dialysis and the urinary tract infection which with ertapenem given intravenously daily in a reduced dose. Patient's comorbidity, she has end-stage renal disease and is on hemodialysis. She has a very poor IV access and therefore it was felt she needed to have in addition to a dialysis catheter or AV fistula a Port-A-Cath present instead. The site today shows no erythema or swelling. The patient's right arm has an AV fistula in it. The fistula is functional, there is no erythema or swelling at that site. COMORBIDITIES: She has end-stage renal disease. She is on dialysis, and she has a Port-A-Cath in and an AV fistula present. Patient also has diabetes mellitus and severe gastroparesis. cc: Aung Aguiar MD
[2017-01-10] MEDS: INVANZ 0.5 GM in NS 50 ML IV SCH (19:30)
[2017-01-10] MEDS: VELTASSA PO SCH (20:46)
[2017-01-10] MEDS: AMBIEN PO SCH (21:00)
[2017-01-10] MEDS: SOMA PO SCH (22:28)
[2017-01-11] MEDS: DILAUDID IV PRN ×4 (02:43→18:22)
[2017-01-11] MEDS: BIDEX PO SCH ×4 (03:30→20:13)
[2017-01-11] MEDS: PHENERGAN PO PRN ×2 (03:30→20:10)
[2017-01-11] MEDS: APRESOLINE PO SCH ×3 (05:09→20:12)
[2017-01-11] MEDS: REGLAN PO SCH ×3 (06:39→15:19)
[2017-01-11] MEDS: MOVANTIK PO SCH (06:39)
[2017-01-11] MEDS: PERCOCET-10 PO PRN ×3 (06:44→20:11)
[2017-01-11 07:35] LABS: ALBUMIN 2.9 g/dL (3.5-5.0); CALCIUM 8.7 mg/dL (8.8-10.2); POTASSIUM 4.1 mmol/L (3.5-5.1)
[2017-01-11] MEDS: MIRALAX PO SCH ×2 (08:12→20:12)
[2017-01-11] MEDS: PROZAC PO SCH (08:12)
[2017-01-11] MEDS: PRILOSEC PO SCH ×2 (08:13→20:21)
[2017-01-11] MEDS: SOMA PO SCH ×3 (08:13→20:21)
[2017-01-11] MEDS: LYRICA PO SCH ×2 (08:14→20:22)
[2017-01-11] MEDS: ASPIRIN PO SCH (08:15)
[2017-01-11] MEDS: COREG PO SCH ×2 (08:15→20:12)
[2017-01-11] MEDS: NORVASC PO SCH ×2 (08:15→20:11)
[2017-01-11] MEDS: LOTRISONE CREAM TOP SCH ×2 (08:15→20:12)
[2017-01-11] MEDS: INVANZ 0.5 GM in NS 50 ML IV SCH (15:20)
[2017-01-11] MEDS: TUMS PO PRN (15:20)
--- NOTE | 2017-01-11 16:17 | PROGRESS NOTE ---
DATE: 01/11/2017 PRESENT ILLNESS: The patient has an enterococcal bacteremia. Most likely originated from one of her intravascular devices or her AV fistula. She also has an extended spectrum beta lactamase producing E coli urinary tract infection. MEDICATIONS: The patient is receiving vancomycin for the patient's bacteremia. I have ordered that repeat blood cultures should be drawn tomorrow morning. If they are sterile, then I think we can count that as day 1 of treatment with vancomycin even though she has been getting it before and she can continue vancomycin IV after each dialysis for a total of 14 days. When the patient is ready to be discharged ertapenem can be discontinued. PHYSICAL EXAMINATION: Vital Signs: Temperature is 98.6 degrees pulse 71, respirations 18, blood pressure 149/64. General: This is an obese, ill-appearing, middle-aged female. She is in no acute distress. Lungs: Clear to auscultation. Cardiovascular: Regular heart rate. Abdomen: Soft and nontender. Chest: The patient's left at upper chest is the area where the tunneled dialysis catheter was taken out. The site is not swollen or erythematous. The patient in the upper right chest has a Port-A-Cath in place. That site is not erythematous or swollen either. And finally in the patient's right arm she has an AV fistula which is functional the arm is not erythematous or tender. LAB AND X-RAY: There is no new x-ray and there is no new lab either. ASSESSMENT AND PLAN: As mentioned above, the patient is getting vancomycin after each dialysis. Day 1 of treatment will be when the first day that the patient's blood cultures are sterile. I think the patient's ertapenem can be discontinued once the patient leaves the hospital. Patient's comorbidities include end-stage renal disease, hemodialysis, and need of permanent catheter because of difficulty with IV access. COMORBIDITIES: Include end-stage renal disease, hemodialysis, presence of a Port-A-Cath and presence of an AV fistula. The patient also has diabetes mellitus with severe gastroparesis. cc: Aung Aguiar MD [facility]
--- NOTE | 2017-01-11 16:33 | PROGRESS NOTE ---
DATE: 01/11/2017 SUBJECTIVE: Ms. Harley is feeling better overall. I did start her on some Soma yesterday because she had pulled her back muscle, having more discomfort, and she stated that this is what she takes. She remains afebrile. Breathing appears to be improved and comfortable. She will not get dialysis today, she had it yesterday. OBJECTIVE: Temperature 98.6 degrees, pulse 70, respirations 18, blood pressure 149/64.HEENT: Pupils are equal and round. Lungs: Clear in all lung jones. Cardiovascular: Regular rhythm and rate without murmur or S3. Genitourinary: Urine output is 4400 mL. LABORATORIES: Reviewed. Sodium 140, potassium 4.1, chloride 98, BUN 34, creatinine 4.0. White blood cell count 10,990. This is reviewed from 01/06. ASSESSMENT AND PLAN: 1. She is being treated for extended spectrum beta lactamase producing Escherichia coli urinary tract infection and enterococcal bacteremia. The patient has received vancomycin after each dialysis and daily IV ertapenem. This is day 1 of ertapenem, first day of treatment. Counting the 1st day of treatment with vancomycin the 1st negative blood culture. So we will continue the vancomycin days of dosing starting with the day of the blood cultures negative. Plan to wait until 2 days from today since the tunneled dialysis catheter has been removed. 2. End-stage renal disease, doing better. Volume status, electrolytes look good. 3. Urinary tract infection. Treating as above. 4. Diabetes mellitus type 2. Blood sugar is under good control. 5. Lower back pain. Reviewed orders. Do not see any changes. cc: Taqueria Vo MD
--- NOTE | 2017-01-11 16:57 | PROGRESS NOTE ---
DATE: 01/11/2017 SUBJECTIVE: The patient currently resting in bed. We held her dialysis today, and we will get her back on her normal Sunday, Sunday, Sunday scheduled by tomorrow. She has done well overnight. OBJECTIVE: Vital Signs: Temperature 98.1 degrees, pulse 75, respiratory rate 18, blood pressure 131/51. Intake 1.1 L, output 4.2 L. General: This is a middle-aged female, resting in bed. Awake, alert and oriented. No acute distress. HEENT: Normocephalic, atraumatic. Oral mucosa moist. Neck: Supple. Trachea midline. There is no JVD noted in a reclined position. Cardiovascular: Regular rate and rhythm. There is no murmur or gallop appreciated. Pulmonary: She is clear bilaterally, with equal excursion. No increased work of breathing on 2 L nasal cannula. Abdomen: Soft, obese, positive bowel sounds. Genitourinary: Not inspected. She has minimal void with hemodialysis assist. Extremities: She has trace pretibial edema. The dependent edema to the upper extremities has improved significantly over the last 24 hours. She is moving all extremities. Integumentary: Skin is warm and dry otherwise. She has a Port-A-Cath noted to the right upper chest wall. There is a surgical site to the left upper chest wall where her tunnel dialysis catheter was removed yesterday. LABORATORY DATA: Sodium 140, potassium 4.1, CO2 29, creatinine 4.0. ASSESSMENT AND PLAN: 1. End-stage renal disease management. Tomorrow will be a routine dialysis day. We will check laboratories in the morning and adjust her dialysate bath as appropriate. 2. Positive blood cultures, on vancomycin and ertapenem. Followed by Infectious Disease. 3. Hypertension, controlled. 4. Fluid volume. She is much improved. Dictated by WILMER Neumann for Yaya Santamaria MD Patient seen, data reviewed, discussed with Tracey Crystal on 01/12/17. I agree with the above assessment and plan of care. cc: Yaya Santamaria MD [facility]
[2017-01-11] MEDS: VELTASSA PO SCH (20:10)
[2017-01-11] MEDS: AMBIEN PO SCH (20:21)
[2017-01-12] MEDS: BIDEX PO SCH ×4 (02:21→23:29)
[2017-01-12] MEDS: DILAUDID IV PRN ×5 (03:52→23:32)
[2017-01-12] MEDS: PHENERGAN PO PRN (03:53)
[2017-01-12] MEDS: APRESOLINE PO SCH ×3 (04:42→23:30)
[2017-01-12] MEDS: REGLAN PO SCH ×3 (06:45→16:30)
[2017-01-12] MEDS: PERCOCET-10 PO PRN (06:45)
[2017-01-12] MEDS ORDERED: NS 2,000 ML MISC PRN (06:48)
[2017-01-12] MEDS ORDERED: TIGHT: 0.2 ML/HR MISC PRN (06:48)
[2017-01-12] MEDS ORDERED: HEPARIN IV PRN (06:48)
[2017-01-12 07:39] LABS: CALCIUM 8.6 mg/dL (8.8-10.2); POTASSIUM 4.7 mmol/L (3.5-5.1)
[2017-01-12] MEDS: SOMA PO SCH ×3 (08:46→23:31)
[2017-01-12] MEDS: NORVASC PO SCH ×2 (08:46→23:29)
[2017-01-12] MEDS: PROZAC PO SCH (08:46)
[2017-01-12] MEDS: PRILOSEC PO SCH ×2 (08:46→23:29)
[2017-01-12] MEDS: COREG PO SCH ×2 (08:46→23:30)
[2017-01-12] MEDS: ASPIRIN PO SCH (08:47)
[2017-01-12] MEDS: MIRALAX PO SCH ×2 (08:47→23:26)
[2017-01-12] MEDS: LOTRISONE CREAM TOP SCH ×2 (08:47→23:31)
[2017-01-12] MEDS: LYRICA PO SCH ×2 (08:47→23:30)
[2017-01-12] MEDS: EPOGEN SUBQ SCH (08:47)
[2017-01-12] MEDS: MOVANTIK PO SCH (08:51)
--- NOTE | 2017-01-12 09:02 | PROGRESS NOTE ---
DATE: 01/12/2017 SUBJECTIVE: She is asleep but arousable. She denies new complaints. She states she was a little nauseated when she awoke this morning, but that has resolved. No shortness of breath. OBJECTIVE: Vital Signs: Blood pressure 147/67, heart rate 65, respirations 14, afebrile. Intake 700 mL. Output 50 mL. General: No acute distress. Skin: Warm and dry. Eyes: Conjunctivae are pink. Neck: Neck veins are not visible. Heart: Regular. No murmurs or gallops. Lungs: Have equal breath sounds. No crackles. Abdomen: Obese and soft. Bowel sounds are present. Extremities: Have 2+ edema. No clubbing or cyanosis. LABORATORY DATA: Sodium 139, potassium 4.7, chloride 96, bicarbonate 26, BUN 49, creatinine 5.0. Hemoglobin 9.2 from the 9th. ASSESSMENT AND PLAN: 1. End-stage kidney disease. She will have her routine hemodialysis today. Goal of 4-6 L as her blood pressure will allow. 2. Electrolytes/acid base in target. I will stop Veltassa. 3. Anemia. Below target on the 9. We will recheck her hemoglobin tomorrow. 4. Bacteremia. She is currently receiving vancomycin after each dialysis. 5. Extended spectrum beta-lactamase positive Escherichia coli in the urine. She is on ertapenem. Given her very low urine volume, it may be very difficult to eradicate this organism from her bladder. cc: Yaya Santamaria MD
--- NOTE | 2017-01-12 10:11 | PROGRESS NOTE ---
DATE: 01/12/2017 SUBJECTIVE: Ms. Harley says she does not feel very good today. Just feels puny and weak. Does not complain of any pain other than her back pain. She has not gotten out of bed since she has been here. OBJECTIVE: Vital signs: Temp 97.3 degrees, pulse 65, respirations 14, blood pressure 147/67. Lungs: Clear in all lung jones. Cardiovascular: Regular rhythm and rate without murmur or S3. Abdomen: Soft. Skin: Warm and dry. LAB: Reviewed from in , electrolytes today: Sodium 139, potassium 4.7, chloride 96, BUN 49, creatinine 5.0. ASSESSMENT AND PLAN: 1. End-stage renal disease. Continue routine hemodialysis today, goal of 4-6 L as blood pressure will allow. Her volume and electrolytes look good. 2. Anemia below, a target on the , and still continue to follow. She is getting erythropoietin. 3. Bacteremia. Tunnel catheter, I think was removed, continue. She has extended spectrum beta lactamase Escherichia coli in the urine on ertapenem, and she is on vancomycin for the bacteremia. Tunnel catheter removed, making progress. 4. Lastly, general weakness and deconditioning. We need to get some physical therapy going. cc: Taqueria Vo MD
[2017-01-12] MEDS ORDERED: HEPARIN ONE (12:11)
[2017-01-12] MEDS ORDERED: NS 2,000 ML ONE (12:11)
[2017-01-12] MEDS: INVANZ 0.5 GM in NS 50 ML IV SCH (16:31)
--- NOTE | 2017-01-12 16:44 | PROGRESS NOTE ---
DATE: 01/12/2017 PRESENT ILLNESS: The patient has an enterococcal bacteremia which most likely originated from one of her intravascular devices. Most likely one I think it would be the tunnel dialysis catheter, which has been removed. The patient also has an extended spectrum beta lactamase producing E. coli urinary tract infection. MEDICATIONS: The patient is receiving vancomycin for the patient's bacteremia and the patient is also receiving ertapenem in a reduced dose for the enterococcal bacteremia. PHYSICAL EXAMINATION: Vital Signs: Temperature is 97.3 degrees, pulse 65, respirations 14, blood pressure 147/67. General: This is an obese, middle-aged female who looks chronically ill. Lungs: Clear to auscultation. Cardiovascular: Heart rate was regular. Chest: The patient's left side has a dressing on it where the dialysis catheter was removed. The dressing is intact. The patient has a Port-A-Cath present in the upper right chest. The patient's right arm has an AV fistula in it which is functional. LABORATORY AND X-RAY: The creatinine is 5, the GFR is 9. Repeat blood cultures are pending. ASSESSMENT AND PLAN: 1. I plan to continue with vancomycin after each dialysis and ertapenem in a reduced dose, namely 500 mg IV daily. 2. Comorbidities: She has end-stage renal disease, hemodialysis, presence of a Port-A-Cath and the presence of an AV fistula. The patient also has diabetes mellitus with severe gastroparesis. cc: Aung Aguiar MD
[2017-01-12] MEDS ORDERED: VANCOMYCIN 1 GM/NS 1 GM/250 ML IVPB IV ONE (17:00)
[2017-01-12] MEDS: AMBIEN PO SCH (23:27)
[2017-01-13] MEDS: DILAUDID IV PRN ×5 (03:27→20:53)
[2017-01-13] MEDS: BIDEX PO SCH ×4 (05:32→20:53)
[2017-01-13] MEDS: MOVANTIK PO SCH ×2 (05:56→09:12)
[2017-01-13] MEDS: APRESOLINE PO SCH ×3 (05:56→20:52)
[2017-01-13] MEDS: REGLAN PO SCH ×4 (05:56→18:16)
[2017-01-13] MEDS: PERCOCET-10 PO PRN ×2 (05:56→18:16)
[2017-01-13 07:20] LABS: HEMATOCRIT 28.9 % (37.0-47.0); MCH 30.9 PG (27-31); MCHC 31.1 g/dL (33-37); MCV 99.3 FL (81-99); MPV 9.6 FL (7.4-10.4); RBC 2.91 XMIL (4.2-5.4)
[2017-01-13 07:33] LABS: ALBUMIN 2.9 g/dL (3.5-5.0); CALCIUM 8.1 mg/dL (8.8-10.2); POTASSIUM 4.6 mmol/L (3.5-5.1)
[2017-01-13] MEDS: ASPIRIN PO SCH (09:12)
[2017-01-13] MEDS: PROZAC PO SCH (09:13)
[2017-01-13] MEDS: SOMA PO SCH ×3 (09:13→20:56)
[2017-01-13] MEDS: LOTRISONE CREAM TOP SCH ×2 (09:13→20:54)
[2017-01-13] MEDS: NORVASC PO SCH ×2 (09:13→20:53)
[2017-01-13] MEDS: PRILOSEC PO SCH ×2 (09:13→20:53)
[2017-01-13] MEDS: COREG PO SCH ×2 (09:13→20:53)
[2017-01-13] MEDS: LYRICA PO SCH ×2 (09:13→20:53)
[2017-01-13] MEDS: MIRALAX PO SCH ×2 (09:13→20:54)
--- NOTE | 2017-01-13 12:34 | PROGRESS NOTE ---
DATE: 01/13/2017 SUBJECTIVE: Ms. Harley says she still does not feel very good. Her back still hurts, still some muscle spasm back there. She wants to keep the Soma at the same level. Her breathing is comfortable. She has remained afebrile. OBJECTIVE: Vital Signs: Temperature 98.7 degrees, pulse 78, respirations 17, blood pressure 166/68. No distended neck veins. Lungs are clear anterolateral. Cardiovascular: Regular rhythm and rate without murmur or S3. Abdomen is soft, nontender. Positive bowel sounds. Extremities without clubbing, cyanosis, or edema. Dialysis yesterday took off 4 L. ASSESSMENT AND PLAN: 1. Enterococcus bacteremia most likely originated from 1 of her intravascular devices. They took out the tunnel catheter. She also has an extended beta lactamase producing Escherichia coli urinary tract infection. The patient is receiving ertapenem and receiving vancomycin, so I will continue present antibiotics. She gets these after dialysis. 2. End-stage renal disease. Volume status, electrolytes and acid base look good. 3. Anemia, stable. 4. Lower back pain. Muscle spasm. Continue her Soma. Review of her orders: I do not see any change at this point. She is getting oxycodone 10 mg q.4 hours p.r.n. She is on the Soma, and I believe that is 350 mg 3 times a day. cc: Taqueria Vo MD
[2017-01-13] MEDS: INVANZ 0.5 GM in NS 50 ML IV SCH (16:51)
[2017-01-13] MEDS: AMBIEN PO SCH (20:52)
[2017-01-14] MEDS: BIDEX PO SCH ×4 (01:06→20:28)
[2017-01-14] MEDS: DILAUDID IV PRN ×4 (01:08→18:13)
[2017-01-14] MEDS: REGLAN PO SCH ×3 (06:09→15:27)
[2017-01-14] MEDS: APRESOLINE PO SCH ×3 (06:09→20:28)
[2017-01-14] MEDS: MOVANTIK PO SCH (06:09)
[2017-01-14 07:51] LABS: ALBUMIN 3.1 g/dL (3.5-5.0); CALCIUM 8.4 mg/dL (8.8-10.2); POTASSIUM 4.9 mmol/L (3.5-5.1)
[2017-01-14] MEDS: COREG PO SCH ×2 (09:27→20:28)
[2017-01-14] MEDS: PRILOSEC PO SCH ×2 (09:27→20:28)
[2017-01-14] MEDS: ASPIRIN PO SCH (09:27)
[2017-01-14] MEDS: SOMA PO SCH ×3 (09:27→20:28)
[2017-01-14] MEDS: LYRICA PO SCH ×2 (09:27→20:28)
[2017-01-14] MEDS: NORVASC PO SCH ×2 (09:27→20:28)
[2017-01-14] MEDS: MIRALAX PO SCH ×2 (09:28→20:27)
[2017-01-14] MEDS: PROZAC PO SCH (09:28)
[2017-01-14] MEDS: LOTRISONE CREAM TOP SCH ×2 (09:33→20:27)
[2017-01-14] MEDS ORDERED: DILAUDID IV PRN (10:04)
--- NOTE | 2017-01-14 10:26 | PROGRESS NOTE ---
DATE: 01/14/2017 SUBJECTIVE: Ms. Harley is still hurting in her back and asked if she could have a little bit of Dilaudid just to help break the pain. PHYSICAL EXAMINATION: Vital Signs: Temperature is 98.2 degrees this morning. Pulse 108, respirations 17, blood pressure 158/73. Lungs: Are clear in all lung jones. Cardiovascular Examination: Regular rhythm and rate without murmur or S3. Abdomen: Soft. Skin: Is warm and dry. Extremities: No pedal edema. LABORATORY DATA: White count from yesterday 5320, hematocrit 28, platelet count 108,000. Of note, the white count is down. Electrolytes looked good. Creatinine 5.8, BUN 7. Gets dialysis again on Sunday, volume. ASSESSMENT AND PLAN: 1. End-stage renal disease. Her volume status, electrolytes, and acid base look appropriate. 2. Enterococcus bacteremia, likely from 1 of her intravascular devices. A tunneled catheter has been removed. She appears to be improving. She also had E. coli and extended beta lactamase producing E. coli urinary tract infection so she is on ertapenem and on vancomycin after dialysis. We will continue this. 3. Lower back pain and weakness and muscle spasm. We will let her have a little bit of Dilaudid in addition so she can get a break in pain. She says that she did not sleep all last night. 4. Otherwise, looking over orders, I do not see any changes. cc: Taqueria Vo MD
[2017-01-14] MEDS: INVANZ 0.5 GM in NS 50 ML IV SCH (15:27)
[2017-01-14] MEDS: PERCOCET-10 PO PRN (16:08)
[2017-01-14] MEDS: AMBIEN PO SCH (20:28)
[2017-01-15] MEDS: DILAUDID IV PRN ×4 (00:51→18:24)
[2017-01-15] MEDS: BIDEX PO SCH ×4 (00:51→20:05)
[2017-01-15] MEDS: APRESOLINE PO SCH ×3 (05:11→20:05)
[2017-01-15] MEDS: TUMS PO PRN (05:11)
[2017-01-15] MEDS: REGLAN PO SCH ×3 (06:39→16:50)
[2017-01-15] MEDS: MOVANTIK PO SCH (06:40)
[2017-01-15] MEDS ORDERED: TIGHT: 0.2 ML/HR MISC PRN (06:42)
[2017-01-15] MEDS ORDERED: HEPARIN IV PRN (06:42)
[2017-01-15] MEDS ORDERED: NS 2,000 ML MISC PRN (06:42)
[2017-01-15 07:40] LABS: ALBUMIN 3.1 g/dL (3.5-5.0); CALCIUM 8.9 mg/dL (8.8-10.2); POTASSIUM 5.2 mmol/L (3.5-5.1)
[2017-01-15] MEDS: LYRICA PO SCH ×2 (08:54→20:05)
[2017-01-15] MEDS: PROZAC PO SCH (08:54)
[2017-01-15] MEDS: SOMA PO SCH ×3 (08:54→20:05)
[2017-01-15] MEDS: NORVASC PO SCH ×2 (08:54→20:05)
[2017-01-15] MEDS: ASPIRIN PO SCH (08:54)
[2017-01-15] MEDS: COREG PO SCH ×2 (08:54→20:05)
[2017-01-15] MEDS: PRILOSEC PO SCH ×2 (08:54→20:05)
[2017-01-15] MEDS: PHENERGAN PO PRN (08:54)
[2017-01-15] MEDS: EPOGEN SUBQ SCH (08:55)
[2017-01-15] MEDS: MIRALAX PO SCH ×2 (08:55→20:06)
[2017-01-15] MEDS: LOTRISONE CREAM TOP SCH ×2 (08:59→20:06)
--- NOTE | 2017-01-15 11:12 | PROGRESS NOTE ---
DATE: 01/15/2017 TIME SEEN: 07 SUBJECTIVE: Ms. Harley is resting quietly in bed. She has complaints of nausea this a.m. She had complaints of a headache earlier. OBJECTIVE: Vital Signs: Her most recent vital signs, temperature 98.2 degrees , blood pressure 159/77, heart rate 77, respirations 18. She is on 2 L nasal cannula. Last recorded saturation 99%. She has had 374 in. She has had 510 out per Thurman catheter. Laboratory Data: Sodium is 138, potassium 5.2, chloride is 96, CO2 26, BUN 62, creatinine 6.8, glucose 110, calcium is 8.9, phosphorus 8.7, albumin 3.1, with an anion gap of 16. Previous hemoglobin drawn on the was 9. Physical Examination: General: This is a 61-year-old, white female. She is resting quietly in bed. Skin is warm and dry. HEENT: Normocephalic, atraumatic. Conjunctivae are pink. She has TU. Mucous membranes are moist. Neck: Supple. Trachea midline. Unable to determine JVD. Cardiovascular: She is regular rate and rhythm. She has a soft systolic murmur , S4 present. Lungs: Clear to auscultation anteriorly. Equal excursion. Abdomen: Large, round, soft, nontender. Positive bowel sounds. Extremities: She has 2+ lower extremity edema. She has an AV fistula to the right forearm. This is intact. She does have some swelling noted to the right upper arm. We will elevate this on 2 pillows until her dialysis to assist with fluid drainage. She continues with 2+ lower extremity edema as mentioned. Integumentary: Patient does have some ecchymoses noted to bilateral upper extremities. Neurological: She is alert and oriented x3. ASSESSMENT AND PLAN: 1. End-stage renal disease. Patient is due for her routine dialysis treatment today. We will place her on a 2 K bath. She is to dialyze for 3.5 hours. We will attempt 2 -4 L of ultrafiltration as tolerated. 2. Electrolytes. Patient has mild hyperkalemia with correction on dialysis. 3. Acidosis. This remains low with correction on dialysis. 4. Anemia. This remains low but stable with no indications for intervention at this time. 5. Bacteremia. Patient remains on vancomycin after each dialysis treatment. 6. Extended spectrum beta lactamase positive E. coli in her urine. She does remain on Merrem per Dr. Aguiar. I would like to thank you for allowing us to follow with this patient. Dictated by WILMER Thomas for Yaya Santamaria MD Patient seen, data reviewed, discussed with Sky Glaser on 01/15/17. I agree with the above assessment and plan of care. cc: WILMER Thomas MD [facility]
[2017-01-15] MEDS ORDERED: NS 2,000 ML ONE (11:17)
[2017-01-15] MEDS ORDERED: HEPARIN ONE (11:17)
--- NOTE | 2017-01-15 14:04 | PROGRESS NOTE ---
DATE: 01/15/2017 SUBJECTIVE: Ms. Harley says she just does not feel real good. She is asking if we can go up on the Dilaudid to 1 every 4 hours p.r.n. I discouraged her from doing that. But she is getting up with physical therapy some. Her back still gives her a lot of pain. She is breathing comfortably. OBJECTIVE: Vital signs: Today temp 98.2 degrees, pulse 77, respirations 18, blood pressure 169/77. Neck: CVP less than 6 cm. Lungs: Clear in all lung jones anterolateral. Cardiovascular: Regular rhythm and rate without murmur or S3. Abdomen: Soft. Skin: Warm and dry. Intake and output: Urine output yesterday looks to be about a little over 300 mL. LAB: From the was reviewed. CBC: Hemoglobin is 9. Electrolytes from today: Sodium 133, potassium 5.2, chloride 96, BUN 62, creatinine 6.8, albumin 3.1. ASSESSMENT AND PLAN: 1. End-stage renal disease. Will get hemodialysis this afternoon. They are going to use a 2 K bath and dialyze her for 3.5 hours I believe. 2. Electrolytes, acid-base status. Stable. 3. Anemia. Follow. 4. Bacteremia. Still on vancomycin. She has also extended spectrum beta lactamase producing Escherichia coli in the urine for which she is on meropenem. 5. Lower back pain and muscle spasms. She is on Soma and she is getting [place]. I will let her continue to have Dilaudid q.6 hours p.r.n. at 1 mg. keep everything else the same. She says at home she takes Ambien at 10 mg not 5 and so she is requesting that I go up to 10 which I will do. cc: Taqueria Vo MD
[2017-01-15] MEDS ORDERED: VANCOMYCIN 1 GM/NS 1 GM/250 ML IVPB IV ONE (17:00)
[2017-01-15] MEDS: INVANZ 0.5 GM in NS 50 ML IV SCH (17:44)
--- NOTE | 2017-01-15 19:10 | PROGRESS NOTE ---
DATE: 01/15/2017 PRESENT ILLNESS: The patient has an enterococcal bacteremia thought to have arisen from her tunneled dialysis catheter which has been removed. She also has an extended spectrum beta lactamase producing E coli urinary tract infection. MEDICATIONS: This is day 3 of vancomycin therapy. The day 1 that I count as therapy for bacteremia is the first day that the patient had negative blood cultures. Therefore, even though the patient has been getting vancomycin for a longer period than 3 days, I only count the first day of treatment that the patient's blood cultures are sterile. Therefore, this is vancomycin day #3 and ertapenem has been treating the patient's urinary tract infection for 6 days now. PHYSICAL EXAMINATION: Vital Signs: Temperature is 98 degrees, pulse 80, respirations 12, blood pressure 137/64. General: This is an obese, middle-aged female. She looks chronically ill. She is complaining of generalized malaise today. Lungs: Clear to auscultation. Cardiovascular: Regular heart rate. Chest: The patient's left-sided chest where she had the tunneled dialysis catheter removed is not erythematous or swollen. In the right upper chest, she has a Port-A-Cath present which also is not erythematous or swollen. She has an AV fistula in her right arm which is functional and it is not swollen or erythematous. LAB AND X-RAY: Today, the CBC shows a white count of 5320, hemoglobin 9, and platelet count 108,000. Creatinine is 6.8, GFR is 6. The blood cultures are sterile. ASSESSMENT AND PLAN: The plan is to continue treatment with vancomycin after each dialysis and ertapenem in a reduced dose. COMORBIDITIES: Include end-stage renal disease, hemodialysis, the presence of a Port-A-Cath, the presence of an AV fistula, diabetes mellitus and severe gastroparesis. cc: Aung Aguiar MD
[2017-01-15] MEDS: AMBIEN PO SCH (20:04)
[2017-01-16] MEDS: PERCOCET-10 PO PRN ×2 (00:25→18:22)
[2017-01-16] MEDS: DILAUDID IV PRN ×4 (01:54→19:50)
[2017-01-16] MEDS: BIDEX PO SCH ×4 (01:55→19:59)
[2017-01-16] MEDS: APRESOLINE PO SCH ×3 (04:13→20:00)
[2017-01-16] MEDS: MOVANTIK PO SCH (06:23)
[2017-01-16] MEDS: REGLAN PO SCH ×3 (06:23→16:20)
[2017-01-16] MEDS: TUMS PO PRN (06:23)
[2017-01-16 07:32] LABS: ALBUMIN 2.9 g/dL (3.5-5.0); CALCIUM 8.4 mg/dL (8.8-10.2)
[2017-01-16] MEDS ORDERED: TIGHT: 0.2 ML/HR MISC PRN (08:07)
[2017-01-16] MEDS ORDERED: HEPARIN IV PRN (08:07)
[2017-01-16] MEDS ORDERED: NS 2,000 ML MISC PRN (08:07)
[2017-01-16] MEDS: LYRICA PO SCH ×2 (08:23→20:00)
[2017-01-16] MEDS: SOMA PO SCH ×3 (08:23→20:00)
[2017-01-16] MEDS: PROZAC PO SCH (08:25)
[2017-01-16] MEDS ORDERED: HEPARIN ONE (08:25)
[2017-01-16] MEDS: PRILOSEC PO SCH ×2 (08:25→20:00)
[2017-01-16] MEDS: COREG PO SCH ×2 (08:25→20:00)
[2017-01-16] MEDS: ASPIRIN PO SCH (08:26)
[2017-01-16] MEDS: LOTRISONE CREAM TOP SCH ×2 (08:26→20:00)
[2017-01-16] MEDS: NORVASC PO SCH ×2 (08:26→19:59)
[2017-01-16] MEDS: MIRALAX PO SCH ×2 (08:26→20:00)
[2017-01-16] MEDS ORDERED: NS 2,000 ML ONE (08:26)
--- NOTE | 2017-01-16 15:50 | PROGRESS NOTE ---
DATE: 01/16/2017 SUBJECTIVE: Today Ms. Harley refers to be feeling generally weak, hurting all over. OBJECTIVE: Vital signs: Blood pressure 98/61, pulse of 72, respiration is 16, temperature is 98.2 degrees. General: Ms. Harley is a 61-year-old, morbidly obese, female. She is in bed, in mild painful distress. HEENT: Mucosa is pink and moist. There are edematous changes in the upper extremities. HEENT: Mucosa is pink and moist. Anicteric. Acyanotic. Neck: Supple. Chest: Air entry is bilaterally reduced. There are bibasilar crepitations. Cardiovascular: Regular rate and rhythm. There is a PS murmur of about 2/6. Abdomen: Soft, nontender. Bowel sounds are hypoactive. Extremities: No pedal edema. WIRE DROPPER: Patient is awake, alert. No focal neurological deficit. LABORATORY DATA: Has been reviewed. Chemistry: Sodium is 137, potassium 5.0, chloride 95, bicarb is 27. Subsequent blood cultures have been negative for 48 hours. However a previous exam shows Enterococcus faecalis bacteremia as well as E. Coli, ESBL UTI. ASSESSMENT: 1. Generalized weakness and fever secondary to Enterococcus faecalis bacteremia. 2. Dialysis catheter-related (central line related) blood borne infection. The catheter has been removed. The tip grew the same bacteria which is Enterococcus faecalis. 3. ESBL Escherichia coli. Patient is on ertapenem and we are going to go ahead and remove the Thurman catheter. 4. Generalized weakness and deconditioning. 5. End stage renal disease on hemodialysis. 6. Chronic pain syndrome. 7. Suspected constipation from narcotic use. We will do a KUB in the morning to follow up on the gas distribution. 8. Patient is a resident of I think a group home. Hopefully within a day or 2 we can get her ready to go back to her group home. cc: Dany Raines MD
--- NOTE | 2017-01-16 16:01 | PROGRESS NOTE ---
DATE: 01/16/2017 TIME SEEN: 0820. SUBJECTIVE: Ms. Harley is resting quietly in bed. She has no complaints this a.m. She states that she is feeling just slightly better than she was yesterday morning. Denies any nausea or vomiting. No increased work of breathing. OBJECTIVE: Vital signs: Her most recent vital signs, temperature 98.5 degrees , blood pressure 131/59, heart rate 69, respirations 18. She is on room air. Last recorded saturation 96%. She has had 920 in. She has had 5550 out, with 5.5 L off on dialysis, with 50 mL per Thurman catheter. Labs: Sodium 137, potassium 5, chloride 95, CO2 27, BUN 58, creatinine 6.1, glucose 88, anion gap 15, calcium 8.4, phosphorus 8.1, albumin 2.9. Previous hemoglobin 9 on the . PHYSICAL EXAMINATION: General: This is a 61-year-old white female. She is resting in bed. She is in no acute distress. Skin: Warm and dry. HEENT: Normocephalic, atraumatic. Conjunctivae pink. She has TU. Mucous membranes are moist. Neck: Supple. Trachea midline. No JVD. Cardiovascular: She is regular rate and rhythm. She has a soft systolic murmur. S4 is present. Lungs: Clear to auscultation anteriorly. Equal excursion. Abdomen: Large, round, soft, nontender. Positive bowel sounds. Extremities: Have 2+ lower extremity edema bilateral. AV fistula to the right forearm intact with good thrill. This does remain slightly swollen, right greater than left. Again, I have requested that she keep this elevated. There is 2+ lower extremity edema to lowers. No clubbing or cyanosis. Integumentary: She has different stages of healing ecchymoses to the upper extremities bilaterally. Neurological: She is alert and oriented x3. ASSESSMENT AND PLAN: 1. End-stage renal disease. Patient is due for her routine dialysis treatment in the a.m. secondary to her fluid volume overload. We will plan for 2 hours of ultrafiltration to attempt to pull 4-5 L as tolerated to assist patient with fluid volume overload. Again, we will plan for her routine dialysis treatment in the a.m. Patient is in agreement. 2. Electrolytes. Patient has had mild hyperkalemia. This is stable with correction on dialysis. 3. Acid-base balance. This remains stable. 4. Anemia. This remains low but stable. 5. Bacteremia. Patient remains on vancomycin after each dialysis treatment. Not to be given today secondary to just UF. 6. Extended spectrum beta lactamase positive Escherichia coli in urine. She remains on Merrem per Dr. Aguiar. I would like to thank you for allowing us to follow with this patient. Dictated by WILMER Thomas for Yaya Santamaria MD Patient seen, data reviewed, discussed with Sky Glaser on 01/16/17. I agree with the above assessment and plan of care. cc: WILMER Thomas MD [facility]
[2017-01-16] MEDS: INVANZ 0.5 GM in NS 50 ML IV SCH (16:21)
[2017-01-16] MEDS ORDERED: VANCOMYCIN 1 GM/NS 1 GM/250 ML IVPB IV ONE (17:00)
[2017-01-16] MEDS: PHENERGAN PO PRN (18:22)
[2017-01-16] MEDS: AMBIEN PO SCH (19:59)
[2017-01-16] MEDS: DUONEB (A & A) INH PRN (22:29)
[2017-01-17] MEDS: BIDEX PO SCH ×3 (02:00→18:20)
[2017-01-17] MEDS: MOVANTIK PO SCH (06:14)
[2017-01-17] MEDS: TUMS PO PRN (06:14)
[2017-01-17] MEDS: APRESOLINE PO SCH ×2 (06:14→18:21)
[2017-01-17] MEDS: REGLAN PO SCH ×3 (06:14→18:20)
[2017-01-17] MEDS ORDERED: TIGHT: 0.2 ML/HR MISC PRN (07:21)
[2017-01-17] MEDS ORDERED: HEPARIN IV PRN (07:21)
[2017-01-17] MEDS ORDERED: NS 2,000 ML MISC PRN (07:21)
[2017-01-17 07:39] LABS: ALBUMIN 3.1 g/dL (3.5-5.0); CALCIUM 9.2 mg/dL (8.8-10.2)
[2017-01-17] MEDS: DILAUDID IV PRN ×2 (08:43→17:50)
[2017-01-17] MEDS: PRILOSEC PO SCH (08:47)
[2017-01-17] MEDS: NORVASC PO SCH (08:47)
[2017-01-17] MEDS: LYRICA PO SCH (08:47)
[2017-01-17] MEDS: COREG PO SCH (08:47)
[2017-01-17] MEDS: MIRALAX PO SCH (08:48)
[2017-01-17] MEDS: SOMA PO SCH ×2 (08:48→18:21)
[2017-01-17] MEDS: ASPIRIN PO SCH (08:48)
[2017-01-17] MEDS: PROZAC PO SCH (08:48)
[2017-01-17] MEDS: EPOGEN SUBQ SCH (08:51)
--- NOTE | 2017-01-17 10:02 | Diag Imaging Result Doc PS360 ---
EXAM: KUB ABDOMEN INDICATION: constipation TECHNIQUE: 2 views COMPARISON: 07/31/2016 FINDINGS: There is moderately increased stool throughout the colon suggesting possible constipation. There is mild to moderate gaseous distention of the stomach. There is no obstructive bowel pattern. There is no evidence of large volume free abdominal gas given the limitations of a supine radiograph. There is no evidence of organomegaly. IMPRESSION: Suggestion of constipation and mild to moderate gaseous distention of the stomach. Electronically signed by Reji Meehan 01/17/2017 9:59 AM
[2017-01-17] MEDS ORDERED: HEPARIN ONE (10:41)
[2017-01-17] MEDS ORDERED: NS 2,000 ML ONE (10:41)
[2017-01-17] MEDS: LOTRISONE CREAM TOP SCH (11:22)
[2017-01-17] MEDS: DUONEB (A & A) INH PRN (11:45)
--- NOTE | 2017-01-17 11:55 | PROGRESS NOTE ---
DATE: 01/17/2017 TIME SEEN: 0805 SUBJECTIVE: Ms. Harley is currently resting in bed. She is mostly semiprone. She denies chest pain or increased work of breathing. OBJECTIVE: Her most recent vital signs: Temperature 97.9 degrees, blood pressure 113/66, heart rate 76, respirations 18. She is on 3 L nasal cannula. Last recorded saturation 98%. She has had 120 in. She has had 4050 out with 4 L on dialysis yesterday, just ultrafiltration. LABS: Sodium 134, potassium 5, chloride 91, CO2 23, BUN 73, creatinine 7, glucose 108 , anion gap 20, calcium 9.2, phosphorus 10.2, albumin 3.1. Previous hemoglobin 9 on the . PHYSICAL EXAM: General: This is a 61-year-old white female. She is currently resting in bed. She is in no acute distress. Skin: Warm and dry. HEENT: Normocephalic, atraumatic. Conjunctivae pink. She has TU. Mucous membranes moist. Neck: Supple. Trachea midline. No JVD. Cardiovascular: Regular rate and rhythm. Soft systolic murmur noted. S4 remains present also. Lungs: Clear to auscultation anteriorly. Equal excursion. She remains on room air. Abdomen: Soft, nontender, large positive bowel sounds. Extremities: 2+ lower extremity edema bilaterally. AV fistula to the right forearm is intact with good thrill. Right upper arm does remain more swollen than her left. Again, request that she keeps this elevated. 2+ lower extremity edema present. No clubbing or cyanosis. Integumentary: Different stages of healing of ecchymoses to bilateral upper and lower extremities. Neurological: She is alert and oriented x3. ASSESSMENT AND PLAN: 1. End-stage renal disease. Patient is due for her routine dialysis treatment today. We will place her on a 2 K bath. She did dialyze for 3.5 hours. We will attempt to pull patient 4-5 L from her status post dry weight yesterday from dialysis. 2. Electrolytes - mild hyperkalemia with correction on dialysis. 3. Acid-base balance. This remains stable with continued anion gap acidosis. 4. Anemia. This remains stable. 5. Bacteremia. Patient remains on vancomycin status post dialysis treatment. Will arrange for OP Vancomycin. 6. Fluid volume overload. Again, we have been treating patient for fluid volume overload with daily dialysis in the last 3 days. 7. Urinary tract infection. Again, this is followed by Dr. Aguiar. Patient remains on Merrem. I would to thank you for allowing us to follow with this patient. Dictated by WILMER Thomas for Yaya Santamaria MD Patient seen, data reviewed, discussed with Sky Glaser on 01/17/17. I agree with the above assessment and plan of care. cc: WILMER Thomas MD [facility]
--- NOTE | 2017-01-17 14:55 | DISCHARGE SUMMARY ---
ADMISSION DATE: 01/07/2017 DISCHARGE DATE: 01/17/2017 CONSULTATIONS: 1. Dr. Santamaria with nephrology. 2. Dr. Da Aly with general surgery. PERTINENT PROCEDURES: 1. Chest x-ray showed no acute disease or change from prior. 2. Removal of the left-sided tunneled catheter secondary to Enterococcus faecalis bacteremia, and she no longer uses her catheter. 3. Abdominal x-ray showed suggestion of constipation, [id number] gaseous distention of the stomach. DISCHARGE DIAGNOSES: 1. Generalized weakness and fever secondary to Enterococcus faecalis bacteremia. The patient has received treatment with Invanz and removal of her tunneled dialysis catheter. Plan will be to continue vancomycin and ertapenem at a reduced dose after each dialysis session per Dr. Aguiar. 2. End-stage renal disease. The patient does get her treatment through her right forearm arteriovenous fistula. She is going to receive her regular routine dialysis today and then be discharged back to [facility] in [place]. Electrolytes. Mild hypokalemia will be corrected on dialysis. Acid base remained stable with continued gap acidosis. Anemia, stable. 3. Extended spectrum beta lactamase Escherichia coli urinary tract infection. The patient will remain on intravenous antibiotics after dialysis. 4. Chronic pain syndrome. Aware. 5. Suspected constipation from narcotic use. Continue bowel regimen. 6. Diabetes mellitus type 2, diet controlled. 7. Depression and anxiety. Stable. 8. Morbid obesity. HOSPITAL COURSE: Ms. Harley is a 61-year-old female, who carries a past medical history of end-stage renal disease on hemodialysis, morbid obesity, type 2 diabetes that is diet controlled, chronic anemia, depression, anxiety, chronic low back pain, hypertension was brought from [facility] via EMS to [place] [facility] with concern for sepsis. She normally does dialysis on Sunday, Sunday, Sunday. She normally gets dialysis for 4 hours, but on the Sunday she was so weak she could only finish 1 hour. [facility] staff, they noticed she was more weak, staying in bed longer than usual and also noted to have 103 fever, given a dose of Tylenol. There was no decrease in her temperature. She was found to be more swollen all over. In the ED, her temperature was 98.5 degrees. Laboratory data revealed a potassium of 6.1, troponin of 0.51. Urine showed a UTI with large leukocytes, bacteria and moderate blood. She was treated with albuterol breathing treatment and the EKG showed no ST wave changes. Blood cultures were obtained. She was started on IV antibiotics for her UTI. Nephrology was consulted. She was initiated back on her regular scheduled hemodialysis. Blood cultures started growing out GPC's. Dr. Aguiar was consulted. He felt the infection could be coming from her tunneled dialysis catheter. Her urine culture did grow out ESBL E. coli urinary tract infection. Of note, she was started on ertapenem. The patient had 2 separate sets of blood cultures that grew out Enterococcus. She was continued on vancomycin. She continued on hemodialysis throughout her hospital stay and ultimately Dr. Aguiar continues to treat her with vancomycin and ertapenem after her dialysis session. She will have her routine dialysis today and be discharged back to [facility] in [place]. VITAL SIGNS: Temperature is 97.9 degrees, heart rate 76, respirations 18, blood pressure 113/66, O2 is 98% on 3 L nasal cannula. DISCHARGE DIET: Renal. DISCHARGE MEDICATIONS: As per Dr. Raines. Please see MAR. FOLLOW-UP: Ms. Harley is being discharged back to [facility] in [place]. She will continue on her regular hemodialysis schedule on Sunday, Sunday, Sunday where she will get her treatments of intravenous antibiotics after each session per Dr. Aguiar. She can return to the ED for any worsening of symptoms. DISCHARGE TIME: 30 minutes. Dictated by WILMER Holder for Dany Raines MD cc: Dany Raines MD
--- NOTE | 2017-01-17 14:59 | PROGRESS NOTE ---
DATE: 01/17/2017 SUBJECTIVE: The patient is going to a rehab facility today for her enterococcal bacteremia. I have contacted Dr. Santamaria who will order vancomycin 1 g after each dialysis, for a period of 2 weeks. PLAN: I have written the following orders for the patient in the rehab facility : Ertapenem 500 mg IV daily for 2 weeks, to be given through the patient's Port-A-Cath, and a CBC drawn every Sunday x2 weeks. I am available to see the patient on a p.r.n. basis. cc: Aung Aguiar MD [facility]
[2017-01-17] MEDS ORDERED: VANCOMYCIN 1 GM/NS 1 GM/250 ML IVPB IV ONE (17:00)
[2017-01-17] MEDS: INVANZ 0.5 GM in NS 50 ML IV SCH (18:13)
[2017-01-17 20:05] VITALS: BP 122/55
--- NOTE | 2017-01-29 22:58 | PROVIDER DOCUMENTATION ---
This chart was entered by Lashawn Martínez Scribe, acting as scribe for Da Miller MD. HPI-Fever - General Chief Complaint: Possible Sepsis-D Stated Complaint: possible sepsis Time Seen by Provider: 01/07/17 00:28 Source: patient Allergies/Adverse Reactions: Patient Allergies Allergy/AdvReac Type Severity Reaction Status Date / Time pentazocine lactate * Allergy Severe ANAPHYLAXIS Verified 10/12/16 16:17 [From Talwin] triamterene [From Maxzide] Allergy Unknown chest pain Verified 10/12/16 16:17 nalbuphine HCl * AdvReac Intermediate NAUSEA/VOMI Verified 10/12/16 16:17 [From Nubain] TING Home Medications: Home Medication List Medication Instructions Recorded Confirmed Last Taken Type Ergocalciferol (Vitamin D2) 50,000 unit PO Q7D #10 capsule 08/25/15 01/07/17 Rx [Vitamin D] Carisoprodol [Soma] 250 mg PO TID PRN 02/03/16 01/07/17 01/05/17 History Fluoxetine HCl [Prozac] 40 mg PO DAILY 04/03/16 01/07/17 01/06/17 History Metoclopramide [Reglan] 5 mg PO TID AC #90 tablet 05/26/16 01/07/17 01/06/17 Rx Amlodipine [Norvasc] 5 mg PO BID #60 tablet 05/29/16 01/07/17 01/06/17 Rx Clotrimazole/Bmethasone Cream 1 applic TOP BID #2 tube 05/29/16 01/07/17 Rx [Lotrisone Cream] Promethazine [Phenergan] 25 mg PO Q6H PRN PRN #5 tablet 05/29/16 01/07/17 Rx Butalbital/Acetaminophen 1 each PO Q4H PRN PRN 07/30/16 01/07/17 01/06/17 History [Butalbital-Acetaminophn 50-325] Carvedilol [Coreg] 12.5 mg PO BID #60 tablet 08/03/16 01/07/17 01/06/17 Rx Hydralazine [Apresoline] 50 mg PO Q8H #90 tablet 08/03/16 01/07/17 01/06/17 Rx Polyethylene Glycol 3350 [Miralax] 17 gm PO BID #5 08/31/16 01/07/17 01/06/17 Rx Bisacodyl [Dulcolax] 10 mg MO QHS PRN 09/08/16 01/07/17 Unknown History Naloxegol Oxalate [Movantik] 12.5 mg PO ACB tablet 09/13/16 01/07/17 01/06/17 Rx Acetaminophen [Tylenol] 650 mg PO Q4H PRN 10/12/16 01/07/17 10/13/16 History Omeprazole 20 mg PO BID 10/12/16 01/07/17 01/06/17 History Calcium Carbonate Chew [Tums] 500 mg PO AC PRN 12/26/16 01/07/17 Unknown History Pregabalin [Lyrica] 50 mg PO BID 12/26/16 01/07/17 01/06/17 History Zolpidem [Ambien] 5 mg PO QHS 12/26/16 01/07/17 01/06/17 History Acetaminophen [Tylenol] 650 mg PO Q6H PRN PRN #0 tablet 12/28/16 01/07/17 Rx Aspirin 81 mg PO DAILY chewtab 12/28/16 01/07/17 01/06/17 Rx Guaifenesin [Organ-I Nr] 200 mg PO Q6HR 01/07/17 01/07/17 01/06/17 History Epoetin Mason [Epogen] 10,000 unit SUBQ MoWeFr@0900 vial 01/17/17 Unknown Rx - History of Present Illness-Fever Fever Severity/Quality: reports: greater than 100.5 F Onset/Duration: reports: abrupt Timing: reports: still present Severity: reports: moderate Context: reports: other (dialysis, permacath) Recent Illness?: reports: none Fever 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 Cognitive Baseline: alert, oriented x3 Modifying Factors: improves with: nothing Associated Symptoms: reports: fever/chills, weakness, other (increased sleeping) Similar Symptoms Previously?: No Recently seen or treated by another doctor?: No - Glascow Coma Score Best Eye Response (Estefani): (4) open spontaneously Best Verbal Response (Adell): (5) oriented Best Motor Response (Adell): (6) obeys commands Adell Total: 15 Review of Systems - Adult - REVIEW OF SYSTEMS - ADULT Constitutional: reports: see HPI, fever, other (weakness) Eyes: reports: no symptoms reported Ears, Nose, Mouth & Throat: reports: no symptoms reported Cardiovascular: reports: no symptoms reported Respiratory: reports: no symptoms reported Gastrointestinal: reports: no symptoms reported Genitourinary: reports: no symptoms reported Musculoskeletal: reports: no symptoms reported Integumentary: reports: no symptoms reported Neurological: reports: no symptoms reported Psychiatric: reports: no symptoms reported Endocrine: reports: no symptoms reported Hematologic/Lymphatic: reports: no symptoms reported Allergic/Immunologic: reports: no symptoms reported All Other Systems: Reviewed and Negative Past History - Adult - PAST MEDICAL HISTORY-ADULT Review of Records: reports: Nursing Assessment Review, Medications Reviewed Major Childhood Illnesses: reports: denies history Cardiovascular: reports: HTN, murmur Respiratory: reports: asthma Gastrointestinal: reports: GERD Obstetrical/Gynecological: reports: other (cervical cancer single) Genitourinary: reports: dialysis (T/Thr/Sat), ESRD, kidney disease Musculoskeletal: reports: arthritis, chronic pain (back), fibromyalgia Neurological: reports: headaches/migraines, other (idiopathic neuralgia ) Psychiatric: reports: denies history Endocrine/Immune: reports: Diabetes Other Conditions: reports: cataract/glaucoma - PRIOR SURGERIES/PROCEDURES Surgical/Procedure History: reports: hysterectomy, indwelling device, tonsillectomy, other (abdominoplasty/carpal tunnel/ r port chest) - PRIOR HOSPITALIZATIONS Prior Hospitalizations: reports: for similar symptoms - IMMUNIZATION STATUS Childhood Immunizations: See Nurse Assessment Flu Vaccine: See Nurse Assessment - FAMILY HISTORY Family History: reviewed, not pertinent - SOCIAL HISTORY Smoking: denies Substance Use: none/never Alcohol Use Frequency: never Living Situation: family Physical Exam-General - PHYSICAL EXAM-ADULT Initial Vital Signs Reviewed: Yes - CONSTITUTIONAL General Appearance: alert, no apparent distress, other (morbidly obese) - EYES Eyes: PERRL/EOMI, pink conjunctivae - HEAD, EARS, NOSE, MOUTH & THROAT HENMT: normocephalic/atraumatic, moist mucous membranes - NECK Neck: non-tender, full range of motion, supple, normal inspection - RESPIRATORY Respiratory: chest non-tender, lungs clear, normal breath sounds, no pleuratic chest pain, no respiratory distress, no accessory muscle use - CARDIOVASCULAR Cardiovascular: normal peripheral pulses, regular rate, rhythm, no edema, no gallop, no JVD, no murmur - GASTROINTESTINAL (ABDOMEN) Abdominal Exam: normal bowel sounds, non tender, soft, no organomegaly, hernia ( midline abdominal hernia), other (permacath to abdomen) - LYMPHATIC Lymphatic: no adenopathy - MUSCULOSKELETAL Back Exam: normal inspection, no CVA tenderness, no vertebral tenderness Extremity: normal range of motion, non-tender, normal gait, normal inspection, no calf tenderness, normal capillary refill, pelvis stable, pedal edema ( bilateral lower extremity edema), other (functioning AV graft right forearm) - SKIN Integumentary: normal color, normal turgor, warm/dry - NEUROLOGIC Neurologic: grossly normal, no motor/sensory deficits, motor weakness (marked bilateral lower extremity weakness) - PSYCHIATRIC Psych/Mental Status: normal mood/affect, oriented x 3 Progress - PLAN OF CARE/RESULTS Progress/Plan/Lab Results: Orders Category Date Time Status Admit - [facility] Routine AdmDCTranf 01/07/17 04:55 Ordered Activity - Up with Assistance ORDERED Care 01/07/17 04:55 Active Apply Mechanical Device [QM] ORDERED Care 01/07/17 04:55 Active Cardiac Monitoring DIRECTED Care 01/07/17 00:08 Completed IV Insertion ORDERED Care 01/07/17 00:08 Inactive Intake and Output-Strict ORDERED Care 01/07/17 04:55 Active Notify MD of + Sepsis Screen NOW Care 01/07/17 00:08 Inactive Nursing- MD Consult Request ROUTINE Care 01/07/17 04:55 Completed Vital Signs Order Q 8-HR ASSESS Care 01/07/17 04:55 Active Z-Document. for Tele Applied ORDERED Care 01/07/17 04:55 Completed Physician/Provider Consults Routine Cons 01/07/17 07:00 Ordered Diabetic Diet Diet 01/07/17 04:38 Completed CHEST-1 VIEW [RAD] Stat Exams 01/07/17 00:08 Completed BASIC METABOLIC PANEL [CHEM] Routine Lab 01/08/17 06:33 Completed BLOOD CULTURE [BLDCUL] Stat Lab 01/07/17 00:00 Completed CBC WITH DIFF [HEME] Stat Lab 01/07/17 00:11 Completed CK PROFILE [SP CHEM] Stat Lab 01/07/17 00:11 Completed COMPREHENSIVE METABOLIC PANEL [CHEM] Stat Lab 01/07/17 00:11 Completed GRAM STAIN [BLDCUL] Stat Lab 01/07/17 00:00 Completed GRAM STAIN [BLDCUL] Stat Lab 01/07/17 03:30 Completed LACTATE, PLASMA [CHEM] Stat Lab 01/07/17 00:11 Completed PROTIME WITH INR [COAG] Stat Lab 01/07/17 00:11 Completed PTT [COAG] Stat Lab 01/07/17 00:11 Completed TROPONIN T Routine Lab 01/07/17 06:00 Completed TROPONIN T Stat Lab 01/07/17 00:11 Completed URINALYSIS W/POSS RFLX CULT-1 [URINALYSIS] Stat Lab 01/07/17 02:09 Completed URINE CULTURE [RM] Routine Lab 01/07/17 03:04 Completed URINE MANUAL MICROSCOPIC [URINALYSIS] Stat Lab 01/07/17 02:09 Completed Acetaminophen [Tylenol] Med 01/07/17 04:55 Discontinued 650 mg PO Q4H PRN PRN Albuterol [Albuterol Neb] Med 01/07/17 01:21 Discontinued 2.5 mg INH NOW ONE Amlodipine [Norvasc] Med 01/07/17 09:00 Discontinued 5 mg PO BID Aspirin Med 01/07/17 09:00 Discontinued 81 mg PO DAILY Bisacodyl [Dulcolax] Med 01/07/17 04:55 Discontinued 10 mg MO QHS PRN Butalbital/Acetaminophen [Butalbital-Acetaminophn 50- Med 01/07/17 04:55 Discontinued 325] 1 each PO Q4H PRN PRN Calcium Carbonate Chew [Tums] Med 01/07/17 04:55 Discontinued 500 mg PO AC PRN Carvedilol [Coreg] Med 01/07/17 09:00 Discontinued 12.5 mg PO BID Clotrimazole/Bmethasone Cream [Lotrisone Cream] Med 01/07/17 09:00 Discontinued 0 gm TOP BID Fluoxetine [Prozac] Med 01/07/17 09:00 Discontinued 40 mg PO DAILY Guaifenesin [Bidex] Med 01/07/17 08:00 Discontinued 200 mg PO Q6HR Guaifenesin [Robitussin] Med 01/07/17 04:55 Discontinued 200 mg PO Q6HR PRN Hydralazine [Apresoline] Med 01/07/17 04:55 Discontinued 50 mg PO Q8H Metoclopramide [Reglan] Med 01/07/17 07:00 Discontinued 5 mg PO TID AC Naloxegol Oxalate [Movantik] Med 01/07/17 07:00 Discontinued 12.5 mg PO ACB Omeprazole [Prilosec] Med 01/07/17 09:00 Discontinued 20 mg PO BID Oxycodone/APAP 10 mg/325 mg [Percocet-10] Med 01/07/17 04:55 Discontinued 1 each PO Q4H PRN PRN Patient's Own Med Med 01/07/17 04:55 Discontinued 1 each PO TID PRN PRN Polyethylene Glycol 3350 [Miralax] Med 01/07/17 09:00 Discontinued 17 gm PO BID Pregabalin [Lyrica] Med 01/07/17 09:00 Discontinued 50 mg PO BID Promethazine [Phenergan] Med 01/07/17 04:55 Discontinued 25 mg PO Q6H PRN PRN Zolpidem [Ambien] Med 01/07/17 21:00 Discontinued 5 mg PO QHS Aerosol Treatments Routine Oth 01/07/17 01:22 Completed Aerosol Treatments Stat Oth 01/07/17 01:22 Completed Oxygen Device Stat Oth 01/07/17 00:08 Completed Transfer/Admit Order [TRANSFER] Routine Transfer 01/07/17 04:36 Completed Result Diagrams: 01/13/17 06:45 01/17/17 06:20 Departure - Departure Date of Disposition Decision: 01/07/17 Time of Disposition Decision: 04:55 DIAGNOSIS: Sepsis Qualifiers: Sepsis type: sepsis due to unspecified organism Qualified Code(s): A41.9 - Sepsis, unspecified organism Disposition: ADMITTED INPATIENT 09 Certified Medical Emergency: Emergent Condition: Stable - Critical Care Note This patient required my direct & personal management of CC.: No Attestation - Physician/ JOE Attestation Patient care was provided by Advanced Practice Provider:: No The physician spent face to face time with patient:: Yes Advanced Practice Provider documentation review:: Supervising physician onsite and consulted in the evaluation and care of this patient. The physician did have a face to face encounter with the patient. This chart was documented by the indicated scribe, (Lashawn Martínez, Patricia) and accurately reflects the services I performed and decisions made by me, Da Miller MD, as attested by the provider's signature.
== END 2017-01-17 22:04 ==
LOC: ED 23:30 → SUATTDRO 01-07 04:51 → 3N 01-07 04:51
PROVIDERS: ATTEND Internal Medicine